=== PATIENT | male | born 1945 | race Caucasian/White ===

== ENCOUNTER 2016-03-18 00:22 | Emergency (ER) | payer MEDICAID, MEDICARE ==
[~2016-03-18] VITALS: Ht 172.7 cm; Wt 97.5 kg
[2016-03-18 00:59] LABS: Basophils # (auto) 0.1 uL; Basophils % (auto) 1.3 % (0.0-2.0); Eosinophils # (auto) 0.1 uL; Eosinophils % (auto) 1.8 % (0.0-7.0); Hematocrit 46.5 % (41.0-53.0); Hemoglobin 14.8 g/dL (13.5-17.5); Lymphocytes # (auto) 1.7 uL; Lymphocytes % (auto) 22.3 % (10.0-50.0); Mean Corpuscular Hgb Conc. 31.8 g/dL (32.0-36.0); Mean Corpuscular Volume 91.2 fL (80.0-100.0); Mean Platelet Volume 10.6 fL (7.4-10.4); Monocytes # (auto) 0.7 uL; Monocytes % (auto) 8.8 % (0.0-12.0); Neutrophils # (auto) 4.9 uL; Neutrophils % (auto) 65.8 % (37.0-80.0); Platelet Count (auto) 151 10^3/uL (140-450); Red Cell Distribution Width 13.1 % (11.6-16.0); White Blood Cell 7.5 10^3/uL (4.4-10.8)
[2016-03-18 01:10] LABS: Partial Thromboplastin Time 26.1 sec (22.64-33.71); Prothrombin Time 10.3 sec (9.37-12.3)
[2016-03-18 01:13] LABS: Temperature: 22.7 C (20.0-25.0)
[2016-03-18 01:17] LABS: Albumin 3.6 g/dL (3.4-5.0); BUN/Creatinine Ratio 12.5; Calcium 8.3 mg/dL (8.5-10.1); Potassium 3.6 mmol/L (3.5-5.1)
[2016-03-18 01:19] LABS: Bilirubin, Total 0.3 mg/dL (0.2-1.0); Total Protein 7.5 g/dL (6.4-8.2)
== END 2016-03-18 03:30 | disposition left against medical advice (07) ==
LOC: ER 00:26
DX: R06.02 Shortness of breath (principal); Z53.21 Procedure and treatment not carried out due to patient leaving prior to being seen by health care provider
CPT/HCPCS: 36415; 71010; 80053; 83880; 84484; 85025; 85610; 85730; 93005

== ENCOUNTER 2016-10-14 10:48 | Emergency (ER) | payer MEDICARE ==
[~2016-10-14] VITALS: Ht 177.8 cm; Wt 108.9 kg
[2016-10-14 11:35] LABS: Urine RBC None Seen /hpf (0 - 3)
[2016-10-14 11:43] LABS: Urine Bilirubin Negative (Negative); Urine Blood Negative /uL (Negative); Urine Color Yellow (Yellow); Urine Glucose Normal (Normal); Urine Ketone Negative (Negative); Urine Nitrite Negative (Negative); Urine Squamous Epithelial Cell FEW /hpf (<5); Urine Urobilinogen Normal (Negative); Urine pH 5.5 (5.0-8.0)
[2016-10-14 11:47] LABS: Basophils # (auto) 0 uL; Basophils % (auto) 0.4 % (0.0-2.0); CONDITION Y; Eosinophils # (auto) 0.1 uL; Eosinophils % (auto) 1.1 % (0.0-7.0); Hematocrit 47.1 % (41.0-53.0); Lymphocytes # (auto) 1.5 uL; Lymphocytes % (auto) 18.3 % (10.0-50.0); Mean Corpuscular Hemoglobin 30.2 pg (28.0-32.0); Mean Corpuscular Volume 88.9 fL (80.0-100.0); Mean Platelet Volume 10.9 fL (7.4-10.4); Monocytes # (auto) 0.6 uL; Monocytes % (auto) 7.8 % (0.0-12.0); Neutrophils # (auto) 5.8 uL; Neutrophils % (auto) 72.4 % (37.0-80.0); Platelet Count (auto) 190 10^3/uL (140-450); Red Cell Distribution Width 15.5 % (11.6-16.0); SUSPECT SEE PRINTOUT; White Blood Cell 8.1 10^3/uL (4.4-10.8)
[2016-10-14 12:02] LABS: Acetaminophen < 2.0 ug/mL (10-30); Salicylate 3.1 mg/dL (2.8-20.0)
[2016-10-14 12:08] LABS: Albumin 3.6 g/dL (3.4-5.0); Alkaline Phosphatase 74 U/L (45-117); Anion Gap 8 (5-15); Aspartate Aminotransferase 15 U/L (15-37); Bilirubin, Total 0.4 mg/dL (0.2-1.0); Blood Urea Nitrogen 16 mg/dL (7-18); Calcium 8.9 mg/dL (8.5-10.1); Carbon Dioxide 24 mmol/L (21-32); Chloride 105 mmol/L (98-107); GFR African American 81 mL/min; GFR Non-African American 67 mL/min; Glucose 116 mg/dL (74-106); Potassium 3.7 mmol/L (3.5-5.1); Sodium 137 mmol/L (136-145); Total Protein 7.3 g/dL (6.4-8.2)
[2016-10-15] MEDS ORDERED: TEMAZEPAM 15 MG CAP PO ONE (00:15)
[2016-10-15] MEDS ORDERED: ONDANSETRON ODT 4 MG TAB PO ONE (00:15)
[2016-10-15] MEDS ORDERED: DEXTROSE (50%) 50ML SYRG IV PRN (08:30)
[2016-10-15] MEDS ORDERED: metFORMIN HYDROCHLORIDE 500 MG TAB PO SCH (10:00)
[2016-10-15 10:06] VITALS: BP 142/81
[2016-10-15] MEDS ORDERED: InsuLIN REG 1unit/0.01ml Soln (100units/ml) SC SCH ×2 (11:30→22:00)
[2016-10-15] MEDS ORDERED: ACCU-CHEK COMFORT CURVE STRIP VI SCH (11:30)
== END 2016-10-15 10:16 ==
LOC: EDBD 10:48 → ER 10:48
DX: R45.851 Suicidal ideations (principal); E11.9 Type 2 diabetes mellitus without complications; F17.210 Nicotine dependence, cigarettes, uncomplicated; F41.9 Anxiety disorder, unspecified; F32.9 Major depressive disorder, single episode, unspecified; Z95.2 Presence of prosthetic heart valve
CPT/HCPCS: 36415; 71010; 80053; 80307; 80320; 80329; 81001; 84484; 85025; 93005; 99285; Q0162

== ENCOUNTER 2017-03-22 00:23 | Emergency (ER) | payer MEDICARE, OTHER ==
[~2017-03-22] VITALS: Ht 177.8 cm; Wt 99.8 kg
[2017-03-22 00:30] VITALS: BP 175/89
== END 2017-03-22 06:45 | disposition left against medical advice (07) ==
LOC: EDBD 00:23 → ER 00:28
DX: R06.02 Shortness of breath (principal); Z53.21 Procedure and treatment not carried out due to patient leaving prior to being seen by health care provider
CPT/HCPCS: 93005

== ENCOUNTER 2020-09-25 14:17 | Emergency (ER) | payer MEDICARE, OTHER ==
[~2020-09-25] VITALS: Ht 172.7 cm; Wt 53.5 kg
[2020-09-25 14:17] VITALS: BP 148/72
== END 2020-09-25 15:33 | disposition left against medical advice (07) ==
LOC: EDBD 14:17 → ER 14:17
DX: T82.119A Breakdown (mechanical) of unspecified cardiac electronic device, initial encounter (principal); R07.89 Other chest pain; F17.210 Nicotine dependence, cigarettes, uncomplicated; E11.9 Type 2 diabetes mellitus without complications
CPT/HCPCS: 93005

== ENCOUNTER 2021-06-06 06:21 | Emergency (ER) | payer OTHER ==
[~2021-06-06] VITALS: Ht 170.2 cm; Wt 113.4 kg
[2021-06-06 07:38] LABS: Basophils # (auto) 0 10 ^3/uL (0-0.2); Basophils % (auto) 0.5 % (0.0-2.0); Eosinophils # (auto) 0.1 10 ^3/uL (0-0.8); Hematocrit 44.7 % (41.0-53.0); Hemoglobin 15.4 g/dL (13.5-17.5); Lymphocytes # (auto) 0.8 10 ^3/uL (0.4-5.4); Lymphocytes % (auto) 11.7 % (10.0-50.0); Mean Corpuscular Hemoglobin 31.1 pg (28.0-32.0); Mean Corpuscular Hgb Conc. 34.4 g/dL (32.0-36.0); Mean Corpuscular Volume 90.5 fL (80.0-100.0); Monocytes # (auto) 0.5 10 ^3/uL (0-1.3); Monocytes % (auto) 8.2 % (0.0-12.0); Neutrophils # (auto) 5.1 10 ^3/uL (1.6-8.6); Neutrophils % (auto) 78.6 % (37.0-80.0); Nucleated Red Blood Cells % 0.1 %; Red Blood Cells 4.94 10^6/uL (4.5-5.90); Red Cell Distribution Width 14.2 % (11.8-14.3); White Blood Cell 6.6 10^3/uL (4.4-10.8)
[2021-06-06 07:59] LABS: Albumin 3.4 g/dL (3.4-5.0); Calcium 8.9 mg/dL (8.5-10.1); Potassium 3.8 mmol/L (3.5-5.1)
[2021-06-06] MEDS ORDERED: SODIUM CHLORIDE 0.9% 1,000 ML IV ONE (08:00)
[2021-06-06 08:05] LABS: BUN/Creatinine Ratio 13.9; Bilirubin, Total 0.6 mg/dL (0.2-1.0); Total Protein 7.9 g/dL (6.4-8.2)
[2021-06-06 09:51] LABS: Urine Bacteria NONE SEEN /hpf (None Seen); Urine Blood Negative /uL (Negative); Urine Specific Gravity 1.009 (1.001-1.035); Urine WBC <1 /hpf (0 - 3)
[2021-06-06] MEDS ORDERED: FUROSEMIDE 40 MG/4 ML VIAL IV ONE (11:30)
[2021-06-06] MEDS ORDERED: SPIRONOLACTONE 25 MG TAB PO ONE (11:30)
[2021-06-06 12:34] VITALS: BP 131/63
== END 2021-06-06 14:21 | disposition home or self-care (01) ==
LOC: ER 06:21 → EDBD 06:21 → ER 14:21
DX: R07.89 Other chest pain (principal); I10 Essential (primary) hypertension; Z95.0 Presence of cardiac pacemaker; Z20.822 Contact with and (suspected) exposure to COVID-19
CPT/HCPCS: 36415; 71046; 80053; 81001; 83735; 83880; 84443; 84484; 85025; 87426; 93005; 96372; 96374; 99284; J1940; J7030

== ENCOUNTER 2022-06-13 12:58 | Emergency (ER) | payer OTHER ==
[~2022-06-13] VITALS: Ht 177.8 cm; Wt 90.9 kg
[2022-06-13] MEDS ORDERED: ACETAMINOPHEN 500 MG TAB PO ONE (14:15)
[2022-06-13 14:45] LABS: Basophils # (auto) 0 10 ^3/uL (0-0.2); Basophils % (auto) 0.5 % (0.0-2.0); Eosinophils # (auto) 0 10 ^3/uL (0-0.8); Eosinophils % (auto) 0.4 % (0.0-7.0); Hematocrit 37.7 % (41.0-53.0); Hemoglobin 12.7 g/dL (13.5-17.5); Lymphocytes # (auto) 1.2 10 ^3/uL (0.4-5.4); Lymphocytes % (auto) 13.2 % (10.0-50.0); Mean Corpuscular Hemoglobin 30.3 pg (28.0-32.0); Mean Corpuscular Hgb Conc. 33.7 g/dL (32.0-36.0); Mean Corpuscular Volume 89.8 fL (80.0-100.0); Monocytes # (auto) 0.7 10 ^3/uL (0-1.3); Monocytes % (auto) 8.2 % (0.0-12.0); Neutrophils % (auto) 77.7 % (37.0-80.0); Nucleated Red Blood Cells % 0.1 %; Red Blood Cells 4.19 10^6/uL (4.5-5.90); Red Cell Distribution Width 14.9 % (11.8-14.3)
[2022-06-13 15:02] LABS: Albumin 2.7 g/dL (3.4-5.0); Anion Gap 3 (5-15); Blood Urea Nitrogen 30 mg/dL (7-18); Calcium 8.7 mg/dL (8.5-10.1); Carbon Dioxide 26 mmol/L (21-32); Chloride 108 mmol/L (98-107); Glucose 103 mg/dL (74-106); Magnesium 2.4 mg/dL (1.6-2.6); Potassium 4.1 mmol/L (3.5-5.1); Sodium 137 mmol/L (136-145)
[2022-06-13 15:07] LABS: Alanine Aminotransferase 25 U/L (16-61); Alkaline Phosphatase 78 U/L (45-117); Aspartate Aminotransferase 25 U/L (15-37); BUN/Creatinine Ratio 22.1 (10.0-20.0); Bilirubin, Total 0.3 mg/dL (0.2-1.0); Blood Alcohol < 3.0 mg/dL (0-5); GFR African American 65 mL/min; GFR Non-African American 54 mL/min; Total Protein 7.5 g/dL (6.4-8.2)
[2022-06-13] MEDS ORDERED: SOD CHL 0.45% 1,000 ML IV ONE (21:15)
[2022-06-13] MEDS ORDERED: cefTRIAXone 1GM/50ML D5W 50 ML IV ONE (21:15)
[2022-06-14] MEDS ORDERED: ALBUMIN 25% 100 ML IV ONE (01:30)
[2022-06-14] MEDS ORDERED: MORPHINE SULFATE INJ 2 MG/ml SYRG IV ONE (05:15)
[2022-06-14] MEDS ORDERED: ONDANSETRON HCL 4 MG/2 ML VIAL IV ONE (05:15)
[2022-06-14 10:11] VITALS: BP 120/60
== END 2022-06-14 12:33 | disposition home or self-care (01) ==
LOC: EDBD 12:58 → ER 12:58
DX: R42 Dizziness and giddiness (principal); J44.9 Chronic obstructive pulmonary disease, unspecified; E11.9 Type 2 diabetes mellitus without complications; F17.210 Nicotine dependence, cigarettes, uncomplicated; R41.82 Altered mental status, unspecified; Z20.822 Contact with and (suspected) exposure to COVID-19
CPT/HCPCS: 36415; 70450; 71250; 72125; 74176; 80053; 80320; 83735; 84484; 85025; 87426; 93005; 96365; 96375; 99285; J0696; J2270; J2405; J7030; P9047

== ENCOUNTER 2022-07-06 11:14 | Emergency (ER) | payer OTHER ==
[2022-07-06] MEDS ORDERED: IPRATROPIUM BROM 0.5 MG/2.5ML INH SOL NEB ONE (11:30)
[2022-07-06] MEDS ORDERED: ALBUTEROL SULF 2.5 MG/0.5ML(0.5%) NEB SOLN NEB ONE (11:30)
[2022-07-06] MEDS ORDERED: methylPREDNISolone SOD SUCC 125 MG/2 ML VL IV ONE (11:30)
[2022-07-06 11:44] LABS: Basophils # (auto) 0 10 ^3/uL (0-0.2); Basophils % (auto) 0.6 % (0.0-2.0); Eosinophils # (auto) 0.1 10 ^3/uL (0-0.8); Eosinophils % (auto) 0.8 % (0.0-7.0); Hemoglobin 13.6 g/dL (13.5-17.5); Lymphocytes # (auto) 1.2 10 ^3/uL (0.4-5.4); Lymphocytes % (auto) 13.6 % (10.0-50.0); Mean Corpuscular Hgb Conc. 33.2 g/dL (32.0-36.0); Mean Corpuscular Volume 93.6 fL (80.0-100.0); Monocytes # (auto) 0.8 10 ^3/uL (0-1.3); Monocytes % (auto) 9.2 % (0.0-12.0); Neutrophils # (auto) 6.6 10 ^3/uL (1.6-8.6); Neutrophils % (auto) 75.8 % (37.0-80.0); Red Blood Cells 4.38 10^6/uL (4.5-5.90); Red Cell Distribution Width 16.6 % (11.8-14.3); White Blood Cell 8.7 10^3/uL (4.4-10.8)
[2022-07-06 12:07] LABS: Albumin 3.2 g/dL (3.4-5.0); Calcium 8.7 mg/dL (8.5-10.1); Potassium 4.3 mmol/L (3.5-5.1)
[2022-07-06 12:11] LABS: BUN/Creatinine Ratio 22.9 (10.0-20.0); Bilirubin, Total 0.5 mg/dL (0.2-1.0); CRP High Sensitivity 0.48 mg/dL (< 0.3); Total Protein 7.3 g/dL (6.4-8.2)
[2022-07-06] MEDS ORDERED: cefTRIAXone 1GM/50ML D5W 50 ML IV ONE (13:30)
[2022-07-06] MEDS ORDERED: FUROSEMIDE 40 MG/4 ML VIAL IV ONE (13:30)
[2022-07-06 14:12] LABS: Urine Bacteria NONE SEEN /hpf (None Seen); Urine Blood Negative /uL (Negative); Urine WBC <1 /hpf (0 - 3)
[2022-07-06] MEDS ORDERED: IOHEXOL 350 MG/ML 100ML IJ ONE (15:00)
[2022-07-06 19:23] VITALS: BP 142/71
== END 2022-07-06 19:25 | disposition home or self-care (01) ==
LOC: EDBD 11:14 → EDUNIT# 11:14 → ER 11:14
DX: R09.89 Other specified symptoms and signs involving the circulatory and respiratory systems (principal); R06.00 Dyspnea, unspecified; E11.9 Type 2 diabetes mellitus without complications; F17.210 Nicotine dependence, cigarettes, uncomplicated; Z79.899 Other long term (current) drug therapy
CPT/HCPCS: 36415; 36600; 71045; 71250; 80053; 81001; 82805; 83605; 83880; 84484; 85025; 85379; 86141; 93005; 94640; 96365; 96375; 99285; J0696; J1940; J2930; J7644; Q9967

== ENCOUNTER 2022-08-28 13:37 | Inpatient (IN) | payer OTHER ==
[~2022-08-28] VITALS: Ht 180.3 cm; Wt 82.1 kg
[2022-08-28] MEDS ORDERED: AZITHROMYCIN 500MG/ 250ML 250 ML IV ONE (13:45)
[2022-08-28] MEDS ORDERED: cefTRIAXone 1GM/50ML D5W 50 ML IV ONE (13:45)
[2022-08-28 14:32] VITALS: PULSE 68; RESP 19; O2SAT 99
[2022-08-28 16:29] LABS: Basophils # (auto) 0 10 ^3/uL (0-0.2); Basophils % (auto) 0.2 % (0.0-2.0); Eosinophils # (auto) 0 10 ^3/uL (0-0.8); Hematocrit 42.5 % (41.0-53.0); Hemoglobin 13.9 g/dL (13.5-17.5); Lymphocytes # (auto) 0.7 10 ^3/uL (0.4-5.4); Lymphocytes % (auto) 3.9 % (10.0-50.0); Mean Corpuscular Hemoglobin 31.5 pg (28.0-32.0); Mean Corpuscular Hgb Conc. 32.6 g/dL (32.0-36.0); Mean Corpuscular Volume 96.7 fL (80.0-100.0); Monocytes # (auto) 1.1 10 ^3/uL (0-1.3); Monocytes % (auto) 6.6 % (0.0-12.0); Neutrophils # (auto) 15.4 10 ^3/uL (1.6-8.6); Neutrophils % (auto) 89.3 % (37.0-80.0); Red Cell Distribution Width 15.4 % (11.8-14.3); White Blood Cell 17.2 10^3/uL (4.4-10.8)
[2022-08-28] MEDS ORDERED: SOD CHL 0.45% 1,000 ML IV ONE (16:30)
[2022-08-28 16:42] LABS: Albumin 3.7 g/dL (3.4-5.0); Calcium 9.5 mg/dL (8.5-10.1); Potassium 4.6 mmol/L (3.5-5.1)
[2022-08-28 16:46] LABS: BUN/Creatinine Ratio 22.4 (10.0-20.0); Total Protein 7.6 g/dL (6.4-8.2)
[2022-08-28 17:05] LABS: INR 1.01 (0.9-1.15); Partial Thromboplastin Time 26.8 sec (24.6-33.4); Prothrombin Time 10.7 sec (9.4-11.7)
[2022-08-28 18:11] LABS: Urine Bacteria FEW /hpf (None Seen); Urine Blood TRACE /uL (Negative); Urine Clarity HAZY (Clear); Urine Color Yellow (Yellow); Urine Hyaline Cast FEW /lpf (0 - 2); Urine Mucus FEW (None Seen); Urine Protein, UAD 1+ (Negative); Urine Specific Gravity 1.027 (1.001-1.035); Urine WBC 4 /hpf (0 - 3); Urine pH 5.5 (5.0-8.0)
[2022-08-28] MEDS ORDERED: ONDANSETRON HCL 4 MG/2 ML VIAL IV PRN (18:30)
[2022-08-28] MEDS ORDERED: HYDROcodone-ACET 5/325MG TAB PO PRN (18:30)
[2022-08-28] MEDS ORDERED: DOCUSATE SOD 100 MG CAP PO PRN (18:30)
[2022-08-28] MEDS ORDERED: NITROGLYCERIN 0.4 MG SL TAB SL PRN (18:30)
[2022-08-28] MEDS ORDERED: MORPHINE SULFATE INJ 2 MG/ml SYRG IV PRN (18:30)
[2022-08-28 19:40] VITALS: PULSE 66; RESP 34; O2SAT 98
[2022-08-28] MEDS: SODIUM CHLOR 0.9% PF (SALINE LOCK) 10ML VIAL/SYR IV SCH (22:21)
[2022-08-29] MEDS: ACETAMINOPHEN 325 MG TAB PO PRN (01:39)
[2022-08-29 03:56] LABS: Creatinine, Urine 139 mg/dL (30.0-125.0); Sodium Urine 19 mmol/L (40-220)
[2022-08-29] MEDS: SODIUM CHLOR 0.9% PF (SALINE LOCK) 10ML VIAL/SYR IV SCH ×3 (06:05→22:00)
[2022-08-29 07:30] VITALS: PULSE 70; RESP 25; O2SAT 97
[2022-08-29] MEDS ORDERED: cefTRIAXone 1GM/50ML D5W 50 ML IV SCH (10:00)
[2022-08-29] MEDS: AZITHROMYCIN 500MG/ 250ML 250 ML IV SCH (10:20)
[2022-08-29] MEDS ORDERED: SODIUM CHLORIDE 0.9% 1,000 ML IV ONE ×2 (13:00→18:00)
[2022-08-29 13:55] LABS: Calcium 9.2 mg/dL (8.5-10.1); Potassium 3.8 mmol/L (3.5-5.1)
[2022-08-29] MEDS ORDERED: VANCOMYCIN PER PHARMACY 0 MG IV SCH (18:00)
[2022-08-29] MEDS ORDERED: VANCOMYCIN 1GM/250ML 250 ML IV ONE (18:30)
[2022-08-29 20:00] VITALS: PULSE 62; RESP 30; O2SAT 97
[2022-08-29] MEDS: CEFEPIME 2GM/50ML NS 50 ML IV SCH (21:00)
[2022-08-29 22:00] VITALS: BP 100/58; PULSE 62; RESP 23; TEMP 99.6; O2SAT 96
[2022-08-30] VITALS (9 sets, daily range): BP systolic 102–141; BP diastolic 57–74; PULSE 62–92; RESP 18–24; TEMP 97.1–101.4; O2SAT 91–96
[2022-08-30] MEDS ORDERED: ACET-1881 PO (00:41)
[2022-08-30] MEDS ORDERED: ZOLP10TA PO (00:41)
[2022-08-30] MEDS ORDERED: LISI20TA56 PO (00:41)
[2022-08-30] MEDS ORDERED: DOCU-94 PO (00:41)
[2022-08-30] MEDS ORDERED: LORA-1121 PO (00:41)
[2022-08-30] MEDS ORDERED: MET25T PO (00:41)
[2022-08-30] MEDS ORDERED: HAL5T PO (00:41)
[2022-08-30] MEDS ORDERED: QUET50TA PO (00:41)
[2022-08-30] MEDS: SODIUM CHLOR 0.9% PF (SALINE LOCK) 10ML VIAL/SYR IV SCH ×3 (06:19→22:26)
[2022-08-30 07:39] LABS: Potassium 3.5 mmol/L (3.5-5.1)
[2022-08-30 07:50] LABS: BUN/Creatinine Ratio 30.7 (10.0-20.0); Calcium 9.5 mg/dL (8.5-10.1)
[2022-08-30] MEDS ORDERED: D5W 5% 1,000 ML IV SCH ×2 (09:45→15:45)
[2022-08-30] MEDS: CEFEPIME 2GM/50ML NS 50 ML IV SCH (09:59)
[2022-08-30] MEDS: AZITHROMYCIN 500MG/ 250ML 250 ML IV SCH (09:59)
[2022-08-30] MEDS ORDERED: VANCOMYCIN 1GM/250ML 250 ML IV ONE (14:00)
[2022-08-30 14:35] LABS: Cholesterol 103 mg/dL (< 200)
[2022-08-30 14:38] LABS: HDL Cholesterol 29 mg/dL (40-59); LDL Cholesterol 58 mg/dL (< 100); Triglycerides 76 mg/dL (< 150)
[2022-08-30] MEDS ORDERED: METOPROLOL TARTRATE 50 MG TAB PO ONE (14:45)
[2022-08-30 16:03] LABS: Basophils # (auto) 0 10 ^3/uL (0-0.2); Eosinophils # (auto) 0 10 ^3/uL (0-0.8); Monocytes # (auto) 0.8 10 ^3/uL (0-1.3); Nucleated Red Blood Cells % 0.1 %
[2022-08-30 16:06] LABS: Basophils % (auto) 0.1 % (0.0-2.0); Hematocrit 38.4 % (41.0-53.0); Hemoglobin 11.4 g/dL (13.5-17.5); Lymphocytes # (auto) 0.4 10 ^3/uL (0.4-5.4); Lymphocytes % (auto) 2.7 % (10.0-50.0); Mean Corpuscular Hemoglobin 31.1 pg (28.0-32.0); Mean Corpuscular Hgb Conc. 29.6 g/dL (32.0-36.0); Mean Corpuscular Volume 104.8 fL (80.0-100.0); Monocytes % (auto) 5.6 % (0.0-12.0); Neutrophils # (auto) 12.4 10 ^3/uL (1.6-8.6); Neutrophils % (auto) 91.6 % (37.0-80.0); Red Blood Cells 3.66 10^6/uL (4.5-5.90); Red Cell Distribution Width 16.7 % (11.8-14.3); White Blood Cell 13.6 10^3/uL (4.4-10.8)
[2022-08-30] MEDS: POTASSIUM CHL 20MEQ/100ML 100 ML IV SCH ×2 (16:30→22:22)
[2022-08-30] MEDS ORDERED: CLINIMIX PER PHARMACY 0 ML IV SCH (19:00)
[2022-08-30] MEDS ORDERED: ACETAMINOPHEN 650 MG RECT SUPP PR PRN (22:00)
[2022-08-30] MEDS: ATORVASTATIN 20 MG TAB PO SCH (22:00)
[2022-08-30] MEDS: METOPROLOL TARTRATE 25 MG TAB PO SCH (22:00)
[2022-08-30] MEDS: AMINO ACID INFUSION IN D10W 1,000 ML IV NR (22:39)
[2022-08-31] VITALS (50 sets, daily range): BP systolic 109–171; BP diastolic 39–73; PULSE 40–92; RESP 12–32; TEMP 98.6–100.6; O2SAT 91–99
[2022-08-31] MEDS ORDERED: DEXTROSE (50%) 50ML SYRG IV SCH
[2022-08-31 00:54] LABS: Base Excess -4.2 mmol/L (-2.0-2.0)
[2022-08-31] MEDS: CEFEPIME 2GM/50ML NS 50 ML IV SCH ×3 (01:24→22:02)
[2022-08-31] MEDS: ACCU-CHEK COMFORT CURVE STRIP VI SCH ×4 (01:25→17:48)
[2022-08-31] MEDS: InsuLIN REG 1unit/0.01ml Soln (100units/ml) SC SCH ×4 (01:27→17:53)
[2022-08-31] MEDS: SODIUM CHLOR 0.9% PF (SALINE LOCK) 10ML VIAL/SYR IV SCH ×3 (06:00→21:59)
[2022-08-31 07:19] LABS: Potassium 4.2 mmol/L (3.5-5.1)
[2022-08-31 07:31] LABS: Albumin 2.6 g/dL (3.4-5.0); BUN/Creatinine Ratio 35.5 (10.0-20.0); Bilirubin, Total 0.6 mg/dL (0.2-1.0); Calcium 9.2 mg/dL (8.5-10.1); Magnesium 3.4 mg/dL (1.6-2.6); Phosphorus 3.1 mg/dL (2.5-4.90)
[2022-08-31 09:24] LABS: Base Excess -3.5 mmol/L (-2.0-2.0)
[2022-08-31 09:36] LABS: Basophils # (auto) 0.1 10 ^3/uL (0-0.2); Basophils % (auto) 0.3 % (0.0-2.0); Eosinophils # (auto) 0 10 ^3/uL (0-0.8); Eosinophils % (auto) 0.1 % (0.0-7.0); Hematocrit 44.1 % (41.0-53.0); Hemoglobin 13.7 g/dL (13.5-17.5); Lymphocytes # (auto) 0.4 10 ^3/uL (0.4-5.4); Mean Corpuscular Hemoglobin 30.9 pg (28.0-32.0); Mean Corpuscular Volume 99.6 fL (80.0-100.0); Monocytes # (auto) 1.3 10 ^3/uL (0-1.3); Monocytes % (auto) 6.6 % (0.0-12.0); Neutrophils # (auto) 18.1 10 ^3/uL (1.6-8.6); Red Blood Cells 4.42 10^6/uL (4.5-5.90); Red Cell Distribution Width 16.4 % (11.8-14.3); White Blood Cell 19.8 10^3/uL (4.4-10.8)
[2022-08-31] MEDS: ASPirin 81 mg TAB PO SCH (10:00)
[2022-08-31] MEDS: METOPROLOL TARTRATE 25 MG TAB PO SCH ×2 (10:00→22:00)
[2022-08-31] MEDS: AZITHROMYCIN 500MG/ 250ML 250 ML IV SCH (10:56)
[2022-08-31 14:15] LABS: INR 1.08 (0.9-1.15); Partial Thromboplastin Time 25.4 SEC (24.5-34.5); Prothrombin Time 11.3 sec (9.3-11.8)
[2022-08-31] MEDS ORDERED: FUROSEMIDE 100 MG/10ML VIAL IV ONE (16:00)
[2022-08-31] MEDS: LINEZOLID 600MG/300ML 300 ML IV SCH (17:47)
[2022-08-31] MEDS ORDERED: VANCOMYCIN 500 MG in D5W 5% 100 ML IV ONE (18:00)
[2022-08-31] MEDS: AMINO ACID INFUSION IN D10W 1,000 ML IV NR (21:56)
[2022-08-31] MEDS: LACTULOSE 20Gm/30ML SOLN PO SCH (22:00)
[2022-08-31] MEDS: ATORVASTATIN 20 MG TAB PO SCH (22:00)
[2022-09-01] VITALS (48 sets, daily range): BP systolic 104–148; BP diastolic 44–61; PULSE 60–87; RESP 15–33; TEMP 99–100.2; O2SAT 93–100
[2022-09-01] MEDS: ACCU-CHEK COMFORT CURVE STRIP VI SCH ×4 (00:24→18:01)
[2022-09-01] MEDS: InsuLIN REG 1unit/0.01ml Soln (100units/ml) SC SCH ×4 (00:27→18:07)
[2022-09-01 01:16] LABS: Urine Bacteria FEW /hpf (None Seen); Urine Blood Negative /uL (Negative); Urine Clarity Clear (Clear); Urine Color Colorless (Yellow); Urine Hyaline Cast MOD /lpf (0 - 2); Urine Mucus FEW (None Seen); Urine Protein, UAD Negative (Negative); Urine Specific Gravity 1.011 (1.001-1.035); Urine Urobilinogen Normal (Negative); Urine WBC 3 /hpf (0 - 3)
[2022-09-01 04:11] LABS: BUN/Creatinine Ratio 43.5 (10.0-20.0); Calcium 9.2 mg/dL (8.5-10.1); Potassium 3.8 mmol/L (3.5-5.1)
[2022-09-01 04:12] LABS: Albumin 2.5 g/dL (3.4-5.0); BUN/Creatinine Ratio 42.2 (10.0-20.0); Calcium 9.2 mg/dL (8.5-10.1); Magnesium 3.1 mg/dL (1.6-2.6); Phosphorus 2.2 mg/dL (2.5-4.90); Potassium 3.7 mmol/L (3.5-5.1)
[2022-09-01] MEDS ORDERED: FUROSEMIDE 40 MG/4 ML VIAL IV ONE (04:15)
[2022-09-01 04:21] LABS: Basophils # (auto) 0 10 ^3/uL (0-0.2); Basophils % (auto) 0.1 % (0.0-2.0); Eosinophils # (auto) 0 10 ^3/uL (0-0.8); Eosinophils % (auto) 0.2 % (0.0-7.0); Hematocrit 41.3 % (41.0-53.0); Hemoglobin 13.4 g/dL (13.5-17.5); Lymphocytes # (auto) 0.3 10 ^3/uL (0.4-5.4); Lymphocytes % (auto) 1.2 % (10.0-50.0); Mean Corpuscular Hemoglobin 31.5 pg (28.0-32.0); Mean Corpuscular Hgb Conc. 32.5 g/dL (32.0-36.0); Mean Corpuscular Volume 96.8 fL (80.0-100.0); Monocytes # (auto) 1.5 10 ^3/uL (0-1.3); Neutrophils # (auto) 23.8 10 ^3/uL (1.6-8.6); Neutrophils % (auto) 92.5 % (37.0-80.0); Red Blood Cells 4.27 10^6/uL (4.5-5.90); Red Cell Distribution Width 15.8 % (11.8-14.3); White Blood Cell 25.7 10^3/uL (4.4-10.8)
[2022-09-01] MEDS: LINEZOLID 600MG/300ML 300 ML IV SCH ×2 (05:53→18:01)
[2022-09-01] MEDS: SODIUM CHLOR 0.9% PF (SALINE LOCK) 10ML VIAL/SYR IV SCH ×3 (06:07→21:14)
[2022-09-01] MEDS: D5W 5% 1,000 ML IV SCH ×2 (09:40→18:01)
[2022-09-01] MEDS: FUROSEMIDE 100 MG/10ML VIAL IV SCH (09:47)
[2022-09-01] MEDS: ASPirin 81 mg TAB PO SCH (09:59)
[2022-09-01] MEDS ORDERED: FUROSEMIDE 20 MG/2 ML VIAL IV SCH (10:00)
[2022-09-01] MEDS: METOPROLOL TARTRATE 25 MG TAB PO SCH ×2 (10:00→22:00)
[2022-09-01] MEDS: LACTULOSE 20Gm/30ML SOLN PO SCH ×2 (10:00→22:00)
[2022-09-01] MEDS: CEFEPIME 2GM/50ML NS 50 ML IV SCH ×2 (10:20→21:13)
[2022-09-01] MEDS: AZITHROMYCIN 500MG/ 250ML 250 ML IV SCH (11:44)
[2022-09-01] MEDS ORDERED: POTASSIUM PHOSPHATE 22 MEQ in SODIUM CHL 0.9% 100 ML IV ONE (12:15)
[2022-09-01] MEDS: ATORVASTATIN 20 MG TAB PO SCH (22:00)
[2022-09-01] MEDS ORDERED: AMINO ACID INFUSION IN D10W 1,000 ML IV NR (22:00)
[2022-09-02] VITALS (87 sets, daily range): BP systolic 75–145; BP diastolic 28–65; PULSE 54–95; RESP 14–26; TEMP 98.6–100.4; O2SAT 88–100
[2022-09-02] MEDS: ACCU-CHEK COMFORT CURVE STRIP VI SCH ×4 (00:17→17:58)
[2022-09-02] MEDS: InsuLIN REG 1unit/0.01ml Soln (100units/ml) SC SCH ×4 (00:18→18:00)
[2022-09-02 04:01] LABS: Potassium 3.9 mmol/L (3.5-5.1)
[2022-09-02 04:06] LABS: Albumin 2.5 g/dL (3.4-5.0); BUN/Creatinine Ratio 46.9 (10.0-20.0); Bilirubin, Total 0.7 mg/dL (0.2-1.0); Calcium 8.5 mg/dL (8.5-10.1); Magnesium 2.7 mg/dL (1.6-2.6); Phosphorus 2.8 mg/dL (2.5-4.90); Total Protein 6.8 g/dL (6.4-8.2)
[2022-09-02 04:17] LABS: Base Excess -10.5 mmol/L (-2.0-2.0)
[2022-09-02] MEDS ORDERED: ETOMIDATE (2MG/ML) 20ML VIAL IV ONE (04:40)
[2022-09-02] MEDS ORDERED: SUCCINYLCHOLINE CHLORIDE 20 MG/ML 10ML VIAL IV ONE (04:40)
[2022-09-02] MEDS ORDERED: MIDAZOLAM DRIP 50 mg/50mL 50 ML IV ONE (04:44)
[2022-09-02] MEDS: MIDAZOLAM DRIP 50 mg/50mL 50 ML IV SCH (05:00)
[2022-09-02] MEDS: SODIUM CHLOR 0.9% PF (SALINE LOCK) 10ML VIAL/SYR IV SCH ×4 (06:00→21:41)
[2022-09-02] MEDS: LINEZOLID 600MG/300ML 300 ML IV SCH ×2 (07:00→17:58)
[2022-09-02] MEDS: CEFEPIME 2GM/50ML NS 50 ML IV SCH ×2 (09:00→21:40)
[2022-09-02 09:24] LABS: Folate (Folic Acid) 5.75 ng/mL (5.38-24)
[2022-09-02 09:25] LABS: Base Excess -9.3 mmol/L (-2.0-2.0)
[2022-09-02] MEDS: D5W 5% 1,000 ML IV SCH ×3 (09:30→17:30)
[2022-09-02] MEDS: FUROSEMIDE 100 MG/10ML VIAL IV SCH (10:30)
[2022-09-02] MEDS: PANTOPRAZOLE 40 MG/10 ML VIAL INJ IV SCH (10:33)
[2022-09-02] MEDS: LACTULOSE 20Gm/30ML SOLN PO SCH ×2 (10:34→22:00)
[2022-09-02] MEDS: ASPirin 81 mg TAB PO SCH (10:34)
[2022-09-02] MEDS: ENOXAPARIN SOD 40 MG/0.4 ML SYRINGE SC SCH (10:34)
[2022-09-02] MEDS: METOPROLOL TARTRATE 25 MG TAB PO SCH ×2 (10:34→21:42)
[2022-09-02] MEDS ORDERED: NOREPINEPHRINE 8 MG/250ML KIT 250 ML IV ONE (14:15)
[2022-09-02] MEDS ORDERED: LIDOCAINE 1% (LOCAL ANESTH.) PF 5ml SDV ID ONE (14:30)
[2022-09-02] MEDS: NOREPINEPHRINE 8 MG/250ML KIT 250 ML IV SCH (14:30)
[2022-09-02] MEDS: AZITHROMYCIN 500MG/ 250ML 250 ML IV SCH (14:37)
[2022-09-02] MEDS: ACETAMINOPHEN 325 MG TAB PO PRN (15:11)
[2022-09-02] MEDS ORDERED: AMINO ACID INFUSION IN D10W 1,000 ML IV NR (20:00)
[2022-09-02] MEDS: ATORVASTATIN 20 MG TAB PO SCH (21:42)
[2022-09-03] VITALS (108 sets, daily range): BP systolic 90–128; BP diastolic 31–57; PULSE 59–60; RESP 12–35; TEMP 99–100.4; O2SAT 88–100
[2022-09-03] MEDS: InsuLIN REG 1unit/0.01ml Soln (100units/ml) SC SCH ×5 (01:13→23:39)
[2022-09-03] MEDS: ACCU-CHEK COMFORT CURVE STRIP VI SCH ×5 (01:13→23:39)
[2022-09-03] MEDS: NOREPINEPHRINE 8 MG/250ML KIT 250 ML IV SCH ×2 (01:14→11:48)
[2022-09-03] MEDS: MIDAZOLAM DRIP 50 mg/50mL 50 ML IV SCH (01:15)
[2022-09-03 03:50] LABS: Urine Amorphous Crystal FEW /hpf (None Seen); Urine Bacteria FEW /hpf (None Seen); Urine Blood 2+ /uL (Negative); Urine Clarity HAZY (Clear); Urine Color Yellow (Yellow); Urine Protein, UAD 2+ (Negative); Urine Specific Gravity 1.024 (1.001-1.035); Urine Urobilinogen Normal (Negative); Urine WBC 9 /hpf (0 - 3)
[2022-09-03 04:15] LABS: Basophils # (auto) 0 10 ^3/uL (0-0.2); Basophils % (auto) 0.2 % (0.0-2.0); Eosinophils # (auto) 0 10 ^3/uL (0-0.8); Eosinophils % (auto) 0.1 % (0.0-7.0); Hematocrit 35.8 % (41.0-53.0); Hemoglobin 11.6 g/dL (13.5-17.5); Lymphocytes # (auto) 0.5 10 ^3/uL (0.4-5.4); Lymphocytes % (auto) 2.2 % (10.0-50.0); Mean Corpuscular Hemoglobin 31.3 pg (28.0-32.0); Mean Corpuscular Hgb Conc. 32.4 g/dL (32.0-36.0); Mean Corpuscular Volume 96.8 fL (80.0-100.0); Monocytes # (auto) 1.9 10 ^3/uL (0-1.3); Monocytes % (auto) 7.9 % (0.0-12.0); Neutrophils # (auto) 21.5 10 ^3/uL (1.6-8.6); Neutrophils % (auto) 89.6 % (37.0-80.0); Nucleated Red Blood Cells % 0.1 %; Red Blood Cells 3.71 10^6/uL (4.5-5.90); Red Cell Distribution Width 15.6 % (11.8-14.3)
[2022-09-03 04:42] LABS: Albumin 1.8 g/dL (3.4-5.0); BUN/Creatinine Ratio 31.8 (10.0-20.0); Magnesium 1.9 mg/dL (1.6-2.6); Potassium 4.4 mmol/L (3.5-5.1)
[2022-09-03 04:47] LABS: Bilirubin, Total 0.6 mg/dL (0.2-1.0); Phosphorus 3.9 mg/dL (2.5-4.90); Total Protein 6.6 g/dL (6.4-8.2)
[2022-09-03] MEDS: SODIUM CHLOR 0.9% PF (SALINE LOCK) 10ML VIAL/SYR IV SCH ×5 (06:36→22:23)
[2022-09-03] MEDS: LINEZOLID 600MG/300ML 300 ML IV SCH ×2 (06:36→18:07)
[2022-09-03 07:03] LABS: Base Excess -9.8 mmol/L (-2.0-2.0)
[2022-09-03] MEDS ORDERED: MAGNESIUM SULFATE 1GM/100ML 100 ML IV ONE (07:45)
[2022-09-03 08:28] LABS: Eosinophils # (auto) 0 10 ^3/uL (0-0.8); Eosinophils % (auto) 0.2 % (0.0-7.0); Lymphocytes # (auto) 0.7 10 ^3/uL (0.4-5.4); Lymphocytes % (auto) 3.2 % (10.0-50.0); White Blood Cell 21.5 10^3/uL (4.4-10.8)
[2022-09-03 08:30] LABS: Basophils # (auto) 0 10 ^3/uL (0-0.2); Basophils % (auto) 0.2 % (0.0-2.0); Hematocrit 35.8 % (41.0-53.0); Hemoglobin 10.9 g/dL (13.5-17.5); Mean Corpuscular Hemoglobin 30.7 pg (28.0-32.0); Mean Corpuscular Hgb Conc. 30.4 g/dL (32.0-36.0); Mean Corpuscular Volume 101.1 fL (80.0-100.0); Monocytes # (auto) 1.7 10 ^3/uL (0-1.3); Monocytes % (auto) 7.8 % (0.0-12.0); Neutrophils # (auto) 19.1 10 ^3/uL (1.6-8.6); Neutrophils % (auto) 88.6 % (37.0-80.0); Nucleated Red Blood Cells % 0.1 %; Red Blood Cells 3.54 10^6/uL (4.5-5.90); Red Cell Distribution Width 16.3 % (11.8-14.3)
[2022-09-03] MEDS: BUMETANIDE 2.5mg/10ml (0.25 mg/ml) INJ IV SCH ×4 (08:30→22:22)
[2022-09-03 08:47] LABS: Calcium 7.2 mg/dL (8.5-10.1)
[2022-09-03 08:54] LABS: BUN/Creatinine Ratio 31.4 (10.0-20.0)
[2022-09-03] MEDS: ALBUMIN 25% 100 ML IV SCH ×2 (09:34→21:50)
[2022-09-03] MEDS: PANTOPRAZOLE 40 MG/10 ML VIAL INJ IV SCH (09:54)
[2022-09-03] MEDS: LACTULOSE 20Gm/30ML SOLN PO SCH ×2 (09:54→22:00)
[2022-09-03] MEDS: ASPirin 81 mg TAB PO SCH (09:55)
[2022-09-03] MEDS: ENOXAPARIN SOD 40 MG/0.4 ML SYRINGE SC SCH (09:56)
[2022-09-03] MEDS: METOPROLOL TARTRATE 25 MG TAB PO SCH ×2 (10:00→22:00)
[2022-09-03] MEDS ORDERED: CYANOCOBALAMIN (B-12) 1000 MCG/1 ML VIAL IM ONE (10:00)
[2022-09-03] MEDS: CEFEPIME 2GM/50ML NS 50 ML IV SCH (10:01)
[2022-09-03 10:28] LABS: Potassium 4.1 mmol/L (3.5-5.1)
[2022-09-03 10:32] LABS: BUN/Creatinine Ratio 31.9 (10.0-20.0); Calcium 7.6 mg/dL (8.5-10.1)
[2022-09-03] MEDS: fentaNYL Drip 2500mCg/250mlNS 250 ML IV SCH (17:09)
[2022-09-03] MEDS ORDERED: AMINO ACID INFUSION IN D10W 1,000 ML IV NR (20:00)
[2022-09-03] MEDS: ATORVASTATIN 20 MG TAB PO SCH (22:00)
[2022-09-03] MEDS: METOCLOPRAMIDE HCL 5MG/ml INJ 2ml VIAL IV SCH (22:27)
[2022-09-04] VITALS (106 sets, daily range): BP systolic 81–148; BP diastolic 17–43; PULSE 59–75; RESP 17–22; TEMP 97.5–99; O2SAT 90–100
[2022-09-04] MEDS: NOREPINEPHRINE 8 MG/250ML KIT 250 ML IV SCH ×3 (02:40→18:02)
[2022-09-04 05:19] LABS: Basophils # (auto) 0.1 10 ^3/uL (0-0.2); Basophils % (auto) 0.4 % (0.0-2.0); Eosinophils # (auto) 0.1 10 ^3/uL (0-0.8); Eosinophils % (auto) 0.4 % (0.0-7.0); Hematocrit 31.7 % (41.0-53.0); Hemoglobin 10.5 g/dL (13.5-17.5); Lymphocytes # (auto) 0.5 10 ^3/uL (0.4-5.4); Lymphocytes % (auto) 2.4 % (10.0-50.0); Mean Corpuscular Hemoglobin 31.2 pg (28.0-32.0); Mean Corpuscular Hgb Conc. 33.2 g/dL (32.0-36.0); Monocytes # (auto) 1.7 10 ^3/uL (0-1.3); Monocytes % (auto) 7.4 % (0.0-12.0); Neutrophils # (auto) 20.3 10 ^3/uL (1.6-8.6); Neutrophils % (auto) 89.4 % (37.0-80.0); Red Blood Cells 3.38 10^6/uL (4.5-5.90); Red Cell Distribution Width 15.1 % (11.8-14.3); White Blood Cell 22.7 10^3/uL (4.4-10.8)
[2022-09-04] MEDS: ACCU-CHEK COMFORT CURVE STRIP VI SCH ×4 (05:23→23:32)
[2022-09-04] MEDS: InsuLIN REG 1unit/0.01ml Soln (100units/ml) SC SCH ×4 (05:23→23:35)
[2022-09-04] MEDS: MIDAZOLAM DRIP 50 mg/50mL 50 ML IV SCH (05:30)
[2022-09-04] MEDS: ALBUMIN 25% 100 ML IV SCH ×2 (05:30→21:42)
[2022-09-04] MEDS: SODIUM CHLOR 0.9% PF (SALINE LOCK) 10ML VIAL/SYR IV SCH ×5 (05:33→22:47)
[2022-09-04] MEDS: METOCLOPRAMIDE HCL 5MG/ml INJ 2ml VIAL IV SCH ×3 (05:33→22:46)
[2022-09-04 05:35] LABS: Potassium 4.7 mmol/L (3.5-5.1)
[2022-09-04 05:43] LABS: Albumin 2.4 g/dL (3.4-5.0); BUN/Creatinine Ratio 29.3 (10.0-20.0); Bilirubin, Total 0.7 mg/dL (0.2-1.0); Calcium 8.3 mg/dL (8.5-10.1); Magnesium 2.5 mg/dL (1.6-2.6); Phosphorus 4.5 mg/dL (2.5-4.90); Total Protein 6.5 g/dL (6.4-8.2)
[2022-09-04] MEDS: BUMETANIDE 2.5mg/10ml (0.25 mg/ml) INJ IV SCH ×3 (06:25→22:43)
[2022-09-04] MEDS: LINEZOLID 600MG/300ML 300 ML IV SCH ×2 (06:25→17:56)
[2022-09-04 07:48] LABS: Base Excess -11.9 mmol/L (-2.0-2.0)
[2022-09-04 08:06] LABS: Homocyst(e)ine 19.3 umol/L (0.0-19.2)
[2022-09-04] MEDS ORDERED: SODIUM BICARBONATE 8.4% INJ 50ML SYRINGE ONE (08:27)
[2022-09-04] MEDS ORDERED: SODIUM BICARBONATE 8.4 % INJ 50ML VIAL IV ONE (08:30)
[2022-09-04] MEDS: METOPROLOL TARTRATE 25 MG TAB PO SCH ×2 (10:00→22:00)
[2022-09-04] MEDS ORDERED: ENOXAPARIN SOD 30 MG/0.3 ML SYRINGE SC SCH (10:00)
[2022-09-04] MEDS: CEFEPIME 2GM/50ML NS 50 ML IV SCH (10:34)
[2022-09-04] MEDS: ASPirin 81 mg TAB PO SCH (10:34)
[2022-09-04] MEDS: CYANOCOBALAMIN 500 MCG TAB PO SCH (10:34)
[2022-09-04] MEDS: LACTULOSE 20Gm/30ML SOLN PO SCH ×2 (10:38→22:51)
[2022-09-04] MEDS: PANTOPRAZOLE 40 MG/10 ML VIAL INJ IV SCH (10:38)
[2022-09-04] MEDS: SODIUM BICARBONATE 50ML VIAL 150 ML in D5W 5% 1,000 ML IV SCH ×2 (10:54→22:41)
[2022-09-04] MEDS ORDERED: HEPARIN DRIP/D5W 100UNITS/ML 250 ML IV SCH (20:45)
[2022-09-04 22:08] LABS: Eosinophils # (auto) 0.1 10 ^3/uL (0-0.8); Monocytes # (auto) 1.4 10 ^3/uL (0-1.3); Neutrophils # (auto) 17.5 10 ^3/uL (1.6-8.6)
[2022-09-04 22:14] LABS: Basophils # (auto) 0.1 10 ^3/uL (0-0.2); Basophils % (auto) 0.3 % (0.0-2.0); Eosinophils % (auto) 0.4 % (0.0-7.0); Hematocrit 31.1 % (41.0-53.0); Lymphocytes # (auto) 0.6 10 ^3/uL (0.4-5.4); Lymphocytes % (auto) 3.1 % (10.0-50.0); Mean Corpuscular Hemoglobin 30.6 pg (28.0-32.0); Mean Corpuscular Hgb Conc. 32.2 g/dL (32.0-36.0); Mean Corpuscular Volume 95.1 fL (80.0-100.0); Neutrophils % (auto) 89.2 % (37.0-80.0); Red Blood Cells 3.27 10^6/uL (4.5-5.90); Red Cell Distribution Width 15.1 % (11.8-14.3); White Blood Cell 19.6 10^3/uL (4.4-10.8)
[2022-09-04 22:23] LABS: INR 1.14 (0.9-1.15); Partial Thromboplastin Time 38.6 SEC (24.5-34.5); Prothrombin Time 11.9 sec (9.3-11.8)
[2022-09-04] MEDS: ATORVASTATIN 20 MG TAB PO SCH (22:50)
[2022-09-05] VITALS (109 sets, daily range): BP systolic 65–144; BP diastolic 14–63; PULSE 59–69; RESP 13–21; TEMP 97.3–99.1; O2SAT 88–100
[2022-09-05] MEDS: NOREPINEPHRINE 8 MG/250ML KIT 250 ML IV SCH ×3 (01:12→15:29)
[2022-09-05] MEDS: MIDAZOLAM DRIP 50 mg/50mL 50 ML IV SCH ×2 (04:08→23:13)
[2022-09-05] MEDS: fentaNYL Drip 2500mCg/250mlNS 250 ML IV SCH ×2 (04:16→11:00)
[2022-09-05 04:19] LABS: Calcium 7.3 mg/dL (8.5-10.1); Potassium 4.1 mmol/L (3.5-5.1)
[2022-09-05 04:23] LABS: Basophils # (auto) 0 10 ^3/uL (0-0.2); Basophils % (auto) 0.2 % (0.0-2.0); Eosinophils # (auto) 0.1 10 ^3/uL (0-0.8); Eosinophils % (auto) 0.7 % (0.0-7.0); Hematocrit 28.3 % (41.0-53.0); Hemoglobin 9.2 g/dL (13.5-17.5); Lymphocytes # (auto) 0.7 10 ^3/uL (0.4-5.4); Mean Corpuscular Hemoglobin 30.9 pg (28.0-32.0); Mean Corpuscular Hgb Conc. 32.5 g/dL (32.0-36.0); Mean Corpuscular Volume 95.1 fL (80.0-100.0); Monocytes # (auto) 1.1 10 ^3/uL (0-1.3); Monocytes % (auto) 6.5 % (0.0-12.0); Neutrophils # (auto) 14.6 10 ^3/uL (1.6-8.6); Neutrophils % (auto) 88.6 % (37.0-80.0); Nucleated Red Blood Cells % 0.1 %; Red Blood Cells 2.97 10^6/uL (4.5-5.90); Red Cell Distribution Width 14.5 % (11.8-14.3); White Blood Cell 16.5 10^3/uL (4.4-10.8)
[2022-09-05 04:25] LABS: Albumin 2.3 g/dL (3.4-5.0); BUN/Creatinine Ratio 27.6 (10.0-20.0); Bilirubin, Total 0.6 mg/dL (0.2-1.0); Magnesium 2.4 mg/dL (1.6-2.6); Total Protein 5.8 g/dL (6.4-8.2)
[2022-09-05] MEDS: ALBUMIN 25% 100 ML IV SCH ×2 (05:12→21:38)
[2022-09-05] MEDS: InsuLIN REG 1unit/0.01ml Soln (100units/ml) SC SCH ×3 (05:39→17:53)
[2022-09-05] MEDS: ACCU-CHEK COMFORT CURVE STRIP VI SCH ×3 (05:40→17:50)
[2022-09-05] MEDS: SODIUM CHLOR 0.9% PF (SALINE LOCK) 10ML VIAL/SYR IV SCH ×5 (05:41→21:56)
[2022-09-05] MEDS: METOCLOPRAMIDE HCL 5MG/ml INJ 2ml VIAL IV SCH ×3 (06:13→21:39)
[2022-09-05] MEDS: BUMETANIDE 2.5mg/10ml (0.25 mg/ml) INJ IV SCH ×3 (06:13→21:39)
[2022-09-05] MEDS: LINEZOLID 600MG/300ML 300 ML IV SCH ×2 (06:13→17:47)
[2022-09-05 07:42] LABS: Base Excess -5.2 mmol/L (-2.0-2.0)
[2022-09-05] MEDS: HEPARIN DRIP/D5W 100UNITS/ML 250 ML IV SCH ×2 (08:27→15:34)
[2022-09-05] MEDS ORDERED: SODIUM CHL 0.9% 1000 ML BAG XX ONE (09:30)
[2022-09-05] MEDS: METOPROLOL TARTRATE 25 MG TAB PO SCH ×2 (09:46→21:56)
[2022-09-05] MEDS: CEFEPIME 2GM/50ML NS 50 ML IV SCH (09:55)
[2022-09-05] MEDS: ASPirin 81 mg TAB PO SCH (09:55)
[2022-09-05] MEDS: LACTULOSE 20Gm/30ML SOLN PO SCH ×2 (09:55→21:56)
[2022-09-05] MEDS: CYANOCOBALAMIN 500 MCG TAB PO SCH (09:55)
[2022-09-05] MEDS: PANTOPRAZOLE 40 MG/10 ML VIAL INJ IV SCH (09:55)
[2022-09-05] MEDS: PYRIDOXINE HCL 50 MG TAB PO SCH (10:00)
[2022-09-05] MEDS: FOLIC ACID 1 MG TAB PO SCH (10:38)
[2022-09-05] MEDS: SODIUM BICARBONATE 50ML VIAL 150 ML in D5W 5% 1,000 ML IV SCH ×2 (10:39→22:31)
[2022-09-05] MEDS ORDERED: CATHFLO ACTIVASE (ALTEPLASE) 2 MG VIAL IV ONE (13:00)
[2022-09-05 15:13] LABS: INR 1.13 (0.9-1.15); Partial Thromboplastin Time 52.1 SEC (24.5-34.5); Prothrombin Time 11.8 sec (9.3-11.8)
[2022-09-05 16:44] LABS: Hepatitis A Ab IgM Negative; Hepatitis B Surface Antigen Negative (Negative); Hepatitis C Antibody Negative (Negative)
[2022-09-05 16:48] LABS: Hepatitis B Core IgM Positive
[2022-09-05] MEDS: ATORVASTATIN 20 MG TAB PO SCH (21:37)
[2022-09-05 22:07] LABS: INR 1.12 (0.9-1.15); Partial Thromboplastin Time 54.2 SEC (24.5-34.5); Prothrombin Time 11.7 sec (9.3-11.8)
[2022-09-06] VITALS (109 sets, daily range): BP systolic 85–172; BP diastolic 21–63; PULSE 59–63; RESP 12–19; TEMP 97.7–99.7; O2SAT 7–100
[2022-09-06] MEDS: ACCU-CHEK COMFORT CURVE STRIP VI SCH ×5 (00:12→23:52)
[2022-09-06] MEDS: NOREPINEPHRINE 8 MG/250ML KIT 250 ML IV SCH ×3 (00:22→17:49)
[2022-09-06 03:10] LABS: Hematocrit 25.9 % (41.0-53.0); Hemoglobin 8.7 g/dL (13.5-17.5); Mean Corpuscular Hemoglobin 31.1 pg (28.0-32.0); Mean Corpuscular Hgb Conc. 33.5 g/dL (32.0-36.0); Mean Corpuscular Volume 92.9 fL (80.0-100.0); Red Blood Cells 2.78 10^6/uL (4.5-5.90); Red Cell Distribution Width 14.2 % (11.8-14.3)
[2022-09-06 03:22] LABS: Basophils % (manual) 0 (0.0-2.0); Blast Cells 0; Eosinophils % (manual) 0 (0-7); Metamyelocytes % 0; Myelocytes % 0; Promyelocytes % 0; Reactive Lymphocytes 0
[2022-09-06 03:27] LABS: Calcium 7.1 mg/dL (8.5-10.1); Potassium 4.1 mmol/L (3.5-5.1)
[2022-09-06 03:29] LABS: INR 1.12 (0.9-1.15); Partial Thromboplastin Time 56.7 SEC (24.5-34.5); Prothrombin Time 11.7 sec (9.3-11.8)
[2022-09-06] MEDS: InsuLIN REG 1unit/0.01ml Soln (100units/ml) SC SCH ×5 (06:00→23:52)
[2022-09-06] MEDS: BUMETANIDE 2.5mg/10ml (0.25 mg/ml) INJ IV SCH ×3 (06:11→22:21)
[2022-09-06] MEDS: METOCLOPRAMIDE HCL 5MG/ml INJ 2ml VIAL IV SCH ×3 (06:11→22:21)
[2022-09-06] MEDS: LINEZOLID 600MG/300ML 300 ML IV SCH ×2 (06:12→17:48)
[2022-09-06] MEDS: ALBUMIN 25% 100 ML IV SCH ×2 (06:12→21:16)
[2022-09-06] MEDS: SODIUM CHLOR 0.9% PF (SALINE LOCK) 10ML VIAL/SYR IV SCH ×5 (06:13→22:22)
[2022-09-06 06:57] LABS: Band Neutrophils % (manual) 4; Lymphocytes % (manual) 8 (10.0-50.0); Monocytes % (manual) 8 (0-12); Platelet Estimate Decreased
[2022-09-06 06:58] LABS: Large Platelets FEW
[2022-09-06 07:27] LABS: Base Excess 4.3 mmol/L (-2.0-2.0)
[2022-09-06] MEDS: SODIUM BICARBONATE 50ML VIAL 150 ML in D5W 5% 1,000 ML IV SCH ×2 (08:15→13:39)
[2022-09-06] MEDS: METOPROLOL TARTRATE 25 MG TAB PO SCH ×2 (09:36→22:00)
[2022-09-06] MEDS: CEFEPIME 2GM/50ML NS 50 ML IV SCH (09:47)
[2022-09-06] MEDS: PANTOPRAZOLE 40 MG/10 ML VIAL INJ IV SCH (09:47)
[2022-09-06] MEDS: LACTULOSE 20Gm/30ML SOLN PO SCH ×2 (09:47→22:21)
[2022-09-06] MEDS: CYANOCOBALAMIN 500 MCG TAB PO SCH (09:48)
[2022-09-06] MEDS: ASPirin 81 mg TAB PO SCH (09:48)
[2022-09-06] MEDS: FOLIC ACID 1 MG TAB PO SCH (09:48)
[2022-09-06] MEDS: HEPARIN DRIP/D5W 100UNITS/ML 250 ML IV SCH (09:56)
[2022-09-06] MEDS: PYRIDOXINE HCL 50 MG TAB PO SCH (10:00)
[2022-09-06] MEDS: fentaNYL Drip 2500mCg/250mlNS 250 ML IV SCH ×2 (11:00→21:28)
[2022-09-06] MEDS ORDERED: SODIUM CHL 0.9% 1000 ML BAG XX ONE (15:15)
[2022-09-06] MEDS ORDERED: EPOETIN ALFA-EPBX 10,000 UNIT/1ML VIAL SC ONE (21:00)
[2022-09-06] MEDS: ATORVASTATIN 20 MG TAB PO SCH (22:21)
[2022-09-07] VITALS (111 sets, daily range): BP systolic 78–137; BP diastolic 31–59; PULSE 59–63; RESP 17–20; TEMP 96.6–99.3; O2SAT 91–100
[2022-09-07] MEDS: HEPARIN DRIP/D5W 100UNITS/ML 250 ML IV SCH (03:20)
[2022-09-07 03:41] LABS: Red Blood Cells 2.56 10^6/uL (4.5-5.90)
[2022-09-07 03:43] LABS: Hematocrit 23.6 % (41.0-53.0); Hemoglobin 8.1 g/dL (13.5-17.5); Mean Corpuscular Hemoglobin 31.7 pg (28.0-32.0); Mean Corpuscular Hgb Conc. 34.3 g/dL (32.0-36.0); Mean Corpuscular Volume 92.2 fL (80.0-100.0); White Blood Cell 10.9 10^3/uL (4.4-10.8)
[2022-09-07 03:53] LABS: Basophils % (manual) 0 (0.0-2.0); Blast Cells 0; Eosinophils % (manual) 0 (0-7); Metamyelocytes % 0; Myelocytes % 0; Promyelocytes % 0; Reactive Lymphocytes 0
[2022-09-07 04:22] LABS: BUN/Creatinine Ratio 21.9 (10.0-20.0); Calcium 7.3 mg/dL (8.5-10.1); Potassium 3.7 mmol/L (3.5-5.1)
[2022-09-07 04:33] LABS: INR 1.14 (0.9-1.15); Partial Thromboplastin Time 62.9 SEC (24.5-34.5); Prothrombin Time 11.9 sec (9.3-11.8)
[2022-09-07] MEDS: MIDAZOLAM DRIP 50 mg/50mL 50 ML IV SCH (05:00)
[2022-09-07] MEDS: ALBUMIN 25% 100 ML IV SCH ×2 (05:09→21:33)
[2022-09-07] MEDS: InsuLIN REG 1unit/0.01ml Soln (100units/ml) SC SCH ×3 (06:00→17:53)
[2022-09-07] MEDS: METOCLOPRAMIDE HCL 5MG/ml INJ 2ml VIAL IV SCH ×3 (06:18→21:34)
[2022-09-07] MEDS: SODIUM CHLOR 0.9% PF (SALINE LOCK) 10ML VIAL/SYR IV SCH ×5 (06:18→21:34)
[2022-09-07] MEDS: BUMETANIDE 2.5mg/10ml (0.25 mg/ml) INJ IV SCH ×3 (06:18→21:33)
[2022-09-07] MEDS: LINEZOLID 600MG/300ML 300 ML IV SCH (06:18)
[2022-09-07] MEDS: ACCU-CHEK COMFORT CURVE STRIP VI SCH ×3 (06:25→17:53)
[2022-09-07 08:31] LABS: Band Neutrophils % (manual) 6; Lymphocytes % (manual) 4 (10.0-50.0); Monocytes % (manual) 7 (0-12)
[2022-09-07 08:33] LABS: Platelet Estimate Decreased; RBC Morphology Normal
[2022-09-07] MEDS: FOLIC ACID 1 MG TAB PO SCH (09:56)
[2022-09-07] MEDS: PANTOPRAZOLE 40 MG/10 ML VIAL INJ IV SCH (09:56)
[2022-09-07] MEDS: LACTULOSE 20Gm/30ML SOLN PO SCH ×2 (09:57→21:34)
[2022-09-07] MEDS: CYANOCOBALAMIN 500 MCG TAB PO SCH (09:57)
[2022-09-07] MEDS: ASPirin 81 mg TAB PO SCH (09:58)
[2022-09-07] MEDS: METOPROLOL TARTRATE 25 MG TAB PO SCH ×2 (09:58→21:36)
[2022-09-07] MEDS: PYRIDOXINE HCL 50 MG TAB PO SCH (09:58)
[2022-09-07] MEDS: CEFEPIME 2GM/50ML NS 50 ML IV SCH (10:00)
[2022-09-07 11:42] LABS: Base Excess 6.3 mmol/L (-2.0-2.0)
[2022-09-07] MEDS: NOREPINEPHRINE 8 MG/250ML KIT 250 ML IV SCH (12:13)
[2022-09-07] MEDS ORDERED: POTASSIUM CHL 20MEQ/100ML 100 ML IV ONE (12:15)
[2022-09-07] MEDS ORDERED: VANCOMYCIN PER PHARMACY 0 MG IV SCH (13:00)
[2022-09-07] MEDS: ARGATROBAN 250 MG in SODIUM CHL 0.9% 248.5 ML IV SCH (13:29)
[2022-09-07] MEDS ORDERED: MEROPENEM 1GM IVPB 100 ML IV ONE (14:00)
[2022-09-07] MEDS: VANCOMYCIN 750mg/250ml 250 ML IV SCH ×2 (15:28→16:40)
[2022-09-07] MEDS: Nepro With Carb Steady 1 Liter Bottle GT SCH (15:59)
[2022-09-07 16:24] LABS: INR 2.62 (0.9-1.15); Prothrombin Time 25.8 sec (9.3-11.8)
[2022-09-07 16:30] LABS: Partial Thromboplastin Time 78.4 SEC (24.5-34.5)
[2022-09-07 20:12] LABS: Prothrombin Time 42.6 sec (9.3-11.8)
[2022-09-07 20:14] LABS: INR 4.48 (0.9-1.15); Partial Thromboplastin Time 96.3 SEC (24.5-34.5)
[2022-09-07] MEDS: ATORVASTATIN 20 MG TAB PO SCH (21:34)
[2022-09-07] MEDS: MEROPENEM 1GM IVPB 100 ML IV SCH (23:07)
[2022-09-07 23:43] LABS: Prothrombin Time 44.9 sec (9.3-11.8)
[2022-09-07 23:45] LABS: INR 4.73 (0.9-1.15); Partial Thromboplastin Time 92.7 SEC (24.5-34.5)
[2022-09-08] VITALS (107 sets, daily range): BP systolic 91–148; BP diastolic 37–54; PULSE 59–68; RESP 14–29; TEMP 98.1–99.1; O2SAT 86–98
[2022-09-08] MEDS: ACCU-CHEK COMFORT CURVE STRIP VI SCH ×5 (00:36→23:52)
[2022-09-08] MEDS: InsuLIN REG 1unit/0.01ml Soln (100units/ml) SC SCH ×5 (00:36→23:55)
[2022-09-08 03:44] LABS: Prothrombin Time 46.9 sec (9.3-11.8)
[2022-09-08 03:46] LABS: INR 4.96 (0.9-1.15); Partial Thromboplastin Time 94.3 SEC (24.5-34.5)
[2022-09-08 04:27] LABS: Hematocrit 24.5 % (41.0-53.0); Hemoglobin 8.3 g/dL (13.5-17.5); Red Blood Cells 2.65 10^6/uL (4.5-5.90)
[2022-09-08 04:30] LABS: Mean Corpuscular Hemoglobin 31.2 pg (28.0-32.0); Mean Corpuscular Hgb Conc. 33.7 g/dL (32.0-36.0); Mean Corpuscular Volume 92.4 fL (80.0-100.0); White Blood Cell 11.8 10^3/uL (4.4-10.8)
[2022-09-08 04:36] LABS: Albumin 2.7 g/dL (3.4-5.0); Calcium 7.8 mg/dL (8.5-10.1); Magnesium 1.9 mg/dL (1.6-2.6); Potassium 4.1 mmol/L (3.5-5.1)
[2022-09-08 04:38] LABS: BUN/Creatinine Ratio 22.9 (10.0-20.0)
[2022-09-08 04:42] LABS: Bilirubin, Total 0.9 mg/dL (0.2-1.0); Total Protein 6.3 g/dL (6.4-8.2)
[2022-09-08 04:44] LABS: Basophils % (manual) 0 (0.0-2.0); Blast Cells 0; Myelocytes % 0; Promyelocytes % 0; Reactive Lymphocytes 0
[2022-09-08] MEDS: MIDAZOLAM DRIP 50 mg/50mL 50 ML IV SCH (05:00)
[2022-09-08] MEDS: ALBUMIN 25% 100 ML IV SCH ×2 (05:18→20:55)
[2022-09-08] MEDS: SODIUM CHLOR 0.9% PF (SALINE LOCK) 10ML VIAL/SYR IV SCH ×5 (05:47→22:31)
[2022-09-08] MEDS: METOCLOPRAMIDE HCL 5MG/ml INJ 2ml VIAL IV SCH ×3 (05:47→22:31)
[2022-09-08] MEDS: BUMETANIDE 2.5mg/10ml (0.25 mg/ml) INJ IV SCH ×3 (06:18→22:30)
[2022-09-08 08:42] LABS: Prothrombin Time 45.8 sec (9.3-11.8)
[2022-09-08 08:44] LABS: INR 4.84 (0.9-1.15)
[2022-09-08] MEDS ORDERED: MAGNESIUM SULFATE 1GM/100ML 100 ML IV ONE (09:15)
[2022-09-08] MEDS: PANTOPRAZOLE 40 MG/10 ML VIAL INJ IV SCH (09:51)
[2022-09-08] MEDS: PYRIDOXINE HCL 50 MG TAB PO SCH (09:51)
[2022-09-08] MEDS: MEROPENEM 1GM IVPB 100 ML IV SCH (09:51)
[2022-09-08] MEDS: FOLIC ACID 1 MG TAB PO SCH (09:52)
[2022-09-08] MEDS: ASPirin 81 mg TAB PO SCH (09:52)
[2022-09-08] MEDS: LACTULOSE 20Gm/30ML SOLN PO SCH ×2 (09:52→22:31)
[2022-09-08] MEDS: CYANOCOBALAMIN 500 MCG TAB PO SCH (09:52)
[2022-09-08 10:15] LABS: Metamyelocytes % 1
[2022-09-08 10:16] LABS: Band Neutrophils % (manual) 6; Eosinophils % (manual) 1 (0-7); Lymphocytes % (manual) 4 (10.0-50.0); Monocytes % (manual) 6 (0-12)
[2022-09-08] MEDS: METOPROLOL TARTRATE 25 MG TAB PO SCH (10:17)
[2022-09-08 10:18] LABS: Platelet Estimate Decreased; RBC Morphology Normal
[2022-09-08] MEDS: fentaNYL Drip 2500mCg/250mlNS 250 ML IV SCH (11:00)
[2022-09-08 11:11] LABS: Partial Thromboplastin Time 58.1 SEC (24.5-34.5); Prothrombin Time 46.7 sec (9.3-11.8)
[2022-09-08 11:12] LABS: INR 4.94 (0.9-1.15)
[2022-09-08] MEDS: ARGATROBAN 250 MG in SODIUM CHL 0.9% 248.5 ML IV SCH ×2 (11:16→19:47)
[2022-09-08 11:31] LABS: Base Excess 3.3 mmol/L (-2.0-2.0)
[2022-09-08] MEDS: NOREPINEPHRINE 8 MG/250ML KIT 250 ML IV SCH (14:11)
[2022-09-08 17:23] LABS: Prothrombin Time 45.8 sec (9.3-11.8)
[2022-09-08 17:28] LABS: INR 4.84 (0.9-1.15); Partial Thromboplastin Time 93.8 SEC (24.5-34.5)
[2022-09-08 21:59] LABS: Prothrombin Time 43.3 sec (9.3-11.8)
[2022-09-08 22:10] LABS: Partial Thromboplastin Time 91.1 SEC (24.5-34.5)
[2022-09-08 22:11] LABS: INR 4.55 (0.9-1.15)
[2022-09-08] MEDS: ATORVASTATIN 20 MG TAB PO SCH (22:31)
[2022-09-08] MEDS: MEROPENEM 500MG IVPB 50 ML IV SCH (22:31)
[2022-09-09] VITALS (107 sets, daily range): BP systolic 93–172; BP diastolic 34–92; PULSE 59–69; RESP 8–26; TEMP 97.5–99.1; O2SAT 88–99
[2022-09-09 04:26] LABS: Red Cell Distribution Width 14.2 % (11.8-14.3)
[2022-09-09] MEDS: MIDAZOLAM DRIP 50 mg/50mL 50 ML IV SCH (04:27)
[2022-09-09 04:28] LABS: Hematocrit 23.1 % (41.0-53.0); Hemoglobin 7.7 g/dL (13.5-17.5); Mean Corpuscular Hemoglobin 31.1 pg (28.0-32.0); Mean Corpuscular Hgb Conc. 33.5 g/dL (32.0-36.0); Mean Corpuscular Volume 92.8 fL (80.0-100.0); Red Blood Cells 2.49 10^6/uL (4.5-5.90); White Blood Cell 12.7 10^3/uL (4.4-10.8)
[2022-09-09 04:31] LABS: Basophils % (manual) 0 (0.0-2.0); Blast Cells 0; Eosinophils % (manual) 0 (0-7); Metamyelocytes % 0; Promyelocytes % 0; Reactive Lymphocytes 0
[2022-09-09 04:42] LABS: Albumin 2.9 g/dL (3.4-5.0); BUN/Creatinine Ratio 23.3 (10.0-20.0); Calcium 8.2 mg/dL (8.5-10.1); Magnesium 2.4 mg/dL (1.6-2.6)
[2022-09-09 04:45] LABS: Bilirubin, Total 0.7 mg/dL (0.2-1.0); Total Protein 6.3 g/dL (6.4-8.2)
[2022-09-09 04:53] LABS: Prothrombin Time 46.4 sec (9.3-11.8)
[2022-09-09] MEDS: ALBUMIN 25% 100 ML IV SCH ×2 (04:55→20:52)
[2022-09-09 04:56] LABS: INR 4.9 (0.9-1.15); Partial Thromboplastin Time 95.2 SEC (24.5-34.5)
[2022-09-09] MEDS: METOCLOPRAMIDE HCL 5MG/ml INJ 2ml VIAL IV SCH (05:39)
[2022-09-09] MEDS: SODIUM CHLOR 0.9% PF (SALINE LOCK) 10ML VIAL/SYR IV SCH ×5 (05:39→21:39)
[2022-09-09] MEDS: ACCU-CHEK COMFORT CURVE STRIP VI SCH ×4 (05:39→23:11)
[2022-09-09] MEDS: BUMETANIDE 2.5mg/10ml (0.25 mg/ml) INJ IV SCH ×3 (05:40→21:39)
[2022-09-09 05:44] LABS: Band Neutrophils % (manual) 1; Lymphocytes % (manual) 3 (10.0-50.0); Monocytes % (manual) 5 (0-12); Myelocytes % 1
[2022-09-09 05:45] LABS: Large Platelets FEW; Platelet Estimate Decreased
[2022-09-09] MEDS: InsuLIN REG 1unit/0.01ml Soln (100units/ml) SC SCH ×4 (06:52→23:11)
[2022-09-09 07:51] LABS: Prothrombin Time 40.3 sec (9.3-11.8)
[2022-09-09 07:54] LABS: INR 4.22 (0.9-1.15); Partial Thromboplastin Time 90.8 SEC (24.5-34.5)
[2022-09-09 08:23] LABS: Base Excess 3.9 mmol/L (-2.0-2.0)
[2022-09-09] MEDS ORDERED: SODIUM CHL 0.9% 1000 ML BAG XX ONE (08:45)
[2022-09-09] MEDS: fentaNYL Drip 2500mCg/250mlNS 250 ML IV SCH (11:00)
[2022-09-09 11:53] LABS: INR > 8.0 (0.9-1.15)
[2022-09-09] MEDS: PANTOPRAZOLE 40 MG/10 ML VIAL INJ IV SCH (12:05)
[2022-09-09] MEDS: MEROPENEM 500MG IVPB 50 ML IV SCH ×2 (12:05→22:05)
[2022-09-09] MEDS: FOLIC ACID 1 MG TAB PO SCH (12:07)
[2022-09-09] MEDS: PYRIDOXINE HCL 50 MG TAB PO SCH (12:09)
[2022-09-09] MEDS: CYANOCOBALAMIN 500 MCG TAB PO SCH (12:10)
[2022-09-09] MEDS: ASPirin 81 mg TAB PO SCH (12:10)
[2022-09-09] MEDS ORDERED: ARGATROBAN 250 MG in SODIUM CHL 0.9% 248.5 ML IV SCH ×3 (12:45→21:30)
[2022-09-09] MEDS: NOREPINEPHRINE 8 MG/250ML KIT 250 ML IV SCH (12:51)
[2022-09-09 14:17] LABS: INR 2.65 (0.9-1.15); Partial Thromboplastin Time 65.5 SEC (24.5-34.5); Prothrombin Time 26.1 sec (9.3-11.8)
[2022-09-09] MEDS: Nepro With Carb Steady 1 Liter Bottle GT SCH (17:40)
[2022-09-09 18:41] LABS: INR 2.25 (0.9-1.15); Partial Thromboplastin Time 66.4 SEC (24.5-34.5); Prothrombin Time 22.4 sec (9.3-11.8)
[2022-09-09] MEDS ORDERED: EPOETIN ALFA-EPBX 10,000 UNIT/1ML VIAL SC ONE (21:00)
[2022-09-09 21:16] LABS: INR 1.59 (0.9-1.15); Partial Thromboplastin Time 53.8 SEC (24.5-34.5); Prothrombin Time 16.2 sec (9.3-11.8)
[2022-09-09] MEDS: ATORVASTATIN 20 MG TAB PO SCH (21:39)
[2022-09-10] VITALS (108 sets, daily range): BP systolic 95–147; BP diastolic 34–99; PULSE 50–85; RESP 12–27; TEMP 97.3–99.7; O2SAT 91–100
[2022-09-10 02:01] LABS: INR 2.12 (0.9-1.15); Partial Thromboplastin Time 60.1 SEC (24.5-34.5); Prothrombin Time 21.2 sec (9.3-11.8)
[2022-09-10 03:55] LABS: Red Blood Cells 2.18 10^6/uL (4.5-5.90)
[2022-09-10 03:57] LABS: Hematocrit 20.2 % (41.0-53.0); Mean Corpuscular Hemoglobin 31.5 pg (28.0-32.0); Mean Corpuscular Hgb Conc. 33.9 g/dL (32.0-36.0); Red Cell Distribution Width 13.9 % (11.8-14.3); White Blood Cell 9.9 10^3/uL (4.4-10.8)
[2022-09-10 04:08] LABS: Hemoglobin 6.9 g/dL (13.5-17.5)
[2022-09-10 04:12] LABS: Albumin 3.1 g/dL (3.4-5.0); BUN/Creatinine Ratio 22.9 (10.0-20.0); Calcium 8.4 mg/dL (8.5-10.1); Magnesium 2.2 mg/dL (1.6-2.6); Potassium 3.9 mmol/L (3.5-5.1)
[2022-09-10 04:14] LABS: Bilirubin, Total 0.6 mg/dL (0.2-1.0); Total Protein 6.1 g/dL (6.4-8.2)
[2022-09-10] MEDS: MIDAZOLAM DRIP 50 mg/50mL 50 ML IV SCH (05:00)
[2022-09-10] MEDS: ALBUMIN 25% 100 ML IV SCH ×3 (05:20→21:51)
[2022-09-10 05:23] LABS: Basophils % (manual) 0 (0.0-2.0); Blast Cells 0; Eosinophils % (manual) 0 (0-7); Metamyelocytes % 0; Promyelocytes % 0; Reactive Lymphocytes 0
[2022-09-10] MEDS: InsuLIN REG 1unit/0.01ml Soln (100units/ml) SC SCH ×3 (06:00→17:28)
[2022-09-10] MEDS: BUMETANIDE 2.5mg/10ml (0.25 mg/ml) INJ IV SCH ×3 (06:13→22:01)
[2022-09-10] MEDS: SODIUM CHLOR 0.9% PF (SALINE LOCK) 10ML VIAL/SYR IV SCH ×5 (06:15→22:01)
[2022-09-10] MEDS: ACCU-CHEK COMFORT CURVE STRIP VI SCH ×3 (06:16→17:28)
[2022-09-10 06:44] LABS: Band Neutrophils % (manual) 1; Lymphocytes % (manual) 5 (10.0-50.0); Monocytes % (manual) 12 (0-12); Myelocytes % 1
[2022-09-10 06:45] LABS: Large Platelets FEW; Platelet Estimate Decreased
[2022-09-10 06:57] LABS: INR 3.23 (0.9-1.15); Prothrombin Time 31.4 sec (9.3-11.8)
[2022-09-10] MEDS ORDERED: OCTREOTIDE ACETATE 100 MCG in SODIUM CHL 0.9% 50 ML IV ONE (07:15)
[2022-09-10 07:51] LABS: Base Excess 0.9 mmol/L (-2.0-2.0)
[2022-09-10] MEDS: PANTOPRAZOLE 40mg/50ML NS AE 50 ML IV SCH ×3 (08:34→17:46)
[2022-09-10] MEDS: OCTREOTIDE ACETATE 500 MCG in SODIUM CHL 0.9% 99 ML IV SCH ×2 (08:46→17:33)
[2022-09-10 09:18] LABS: Ferritin 656.9 ng/mL (10-322)
[2022-09-10] MEDS: MEROPENEM 500MG IVPB 50 ML IV SCH ×2 (09:36→22:01)
[2022-09-10] MEDS: FOLIC ACID 1 MG TAB PO SCH (09:36)
[2022-09-10] MEDS: ASPirin 81 mg TAB PO SCH (09:36)
[2022-09-10] MEDS: CYANOCOBALAMIN 500 MCG TAB PO SCH (09:37)
[2022-09-10] MEDS: PYRIDOXINE HCL 50 MG TAB PO SCH (09:38)
[2022-09-10 10:22] LABS: % Iron Saturation 14.1 % (20-55)
[2022-09-10] MEDS: fentaNYL Drip 2500mCg/250mlNS 250 ML IV SCH (11:00)
[2022-09-10] MEDS ORDERED: VANCOMYCIN 1GM/250ML 250 ML IV ONE (14:00)
[2022-09-10] MEDS: NOREPINEPHRINE 8 MG/250ML KIT 250 ML IV SCH (14:30)
[2022-09-10] MEDS: ATORVASTATIN 20 MG TAB PO SCH (22:02)
[2022-09-11] VITALS (107 sets, daily range): BP systolic 113–166; BP diastolic 46–81; PULSE 56–87; RESP 12–28; TEMP 97.5–99.7; O2SAT 92–100
[2022-09-11] MEDS: PANTOPRAZOLE 40mg/50ML NS AE 50 ML IV SCH ×6 (00:01→23:41)
[2022-09-11] MEDS: ACCU-CHEK COMFORT CURVE STRIP VI SCH ×4 (00:01→17:53)
[2022-09-11] MEDS: OCTREOTIDE ACETATE 500 MCG in SODIUM CHL 0.9% 99 ML IV SCH ×2 (01:46→13:54)
[2022-09-11 04:21] LABS: Hemoglobin 7.6 g/dL (13.5-17.5); White Blood Cell 12.9 10^3/uL (4.4-10.8)
[2022-09-11 04:29] LABS: Hematocrit 22.5 % (41.0-53.0); Mean Corpuscular Hemoglobin 31.1 pg (28.0-32.0); Mean Corpuscular Hgb Conc. 33.6 g/dL (32.0-36.0); Mean Corpuscular Volume 92.4 fL (80.0-100.0); Red Blood Cells 2.43 10^6/uL (4.5-5.90); Red Cell Distribution Width 14.6 % (11.8-14.3)
[2022-09-11 04:45] LABS: Albumin 3.4 g/dL (3.4-5.0); Calcium 8.2 mg/dL (8.5-10.1); Magnesium 2.2 mg/dL (1.6-2.6); Potassium 3.8 mmol/L (3.5-5.1)
[2022-09-11 04:47] LABS: BUN/Creatinine Ratio 23.2 (10.0-20.0)
[2022-09-11] MEDS: MIDAZOLAM DRIP 50 mg/50mL 50 ML IV SCH (04:47)
[2022-09-11 04:50] LABS: Bilirubin, Total 0.8 mg/dL (0.2-1.0); Total Protein 6.6 g/dL (6.4-8.2)
[2022-09-11 04:52] LABS: Basophils % (manual) 0 (0.0-2.0); Blast Cells 0; Eosinophils % (manual) 0 (0-7); Metamyelocytes % 0; Myelocytes % 0; Promyelocytes % 0; Reactive Lymphocytes 0
[2022-09-11] MEDS: InsuLIN REG 1unit/0.01ml Soln (100units/ml) SC SCH ×4 (06:00→18:21)
[2022-09-11] MEDS: ALBUMIN 25% 100 ML IV SCH ×3 (06:01→21:13)
[2022-09-11] MEDS: BUMETANIDE 2.5mg/10ml (0.25 mg/ml) INJ IV SCH ×3 (06:01→21:51)
[2022-09-11] MEDS: SODIUM CHLOR 0.9% PF (SALINE LOCK) 10ML VIAL/SYR IV SCH ×5 (06:01→21:51)
[2022-09-11] MEDS ORDERED: SODIUM CHL 0.9% 1000 ML BAG XX ONE (07:00)
[2022-09-11 07:30] LABS: Base Excess 3.4 mmol/L (-2.0-2.0)
[2022-09-11 07:55] LABS: Band Neutrophils % (manual) 1; Lymphocytes % (manual) 6 (10.0-50.0); Monocytes % (manual) 6 (0-12)
[2022-09-11 07:58] LABS: Platelet Estimate Adequate
[2022-09-11] MEDS: CYANOCOBALAMIN 500 MCG TAB PO SCH (10:04)
[2022-09-11] MEDS: FOLIC ACID 1 MG TAB PO SCH (10:04)
[2022-09-11] MEDS: PYRIDOXINE HCL 50 MG TAB PO SCH (10:04)
[2022-09-11 10:40] LABS: Folate (Folic Acid) 11.66 ng/mL (5.38-24)
[2022-09-11] MEDS: fentaNYL Drip 2500mCg/250mlNS 250 ML IV SCH (11:00)
[2022-09-11] MEDS: MEROPENEM 500MG IVPB 50 ML IV SCH ×2 (13:26→21:51)
[2022-09-11] MEDS: NOREPINEPHRINE 8 MG/250ML KIT 250 ML IV SCH (14:30)
[2022-09-12] VITALS (101 sets, daily range): BP systolic 121–164; BP diastolic 48–69; PULSE 59–68; RESP 16–32; TEMP 98.2–99.5; O2SAT 90–100
[2022-09-12] MEDS: OCTREOTIDE ACETATE 500 MCG in SODIUM CHL 0.9% 99 ML IV SCH ×2 (01:50→10:13)
[2022-09-12 03:48] LABS: Hematocrit 22.1 % (41.0-53.0); Red Cell Distribution Width 14.6 % (11.8-14.3)
[2022-09-12 03:50] LABS: Hemoglobin 7.3 g/dL (13.5-17.5); Mean Corpuscular Hemoglobin 30.8 pg (28.0-32.0); Mean Corpuscular Hgb Conc. 33.2 g/dL (32.0-36.0); Mean Corpuscular Volume 92.7 fL (80.0-100.0); Red Blood Cells 2.38 10^6/uL (4.5-5.90)
[2022-09-12 03:58] LABS: Band Neutrophils % (manual) 0; Basophils % (manual) 0 (0.0-2.0); Blast Cells 0; Metamyelocytes % 0; Myelocytes % 0; Promyelocytes % 0; Reactive Lymphocytes 0
[2022-09-12 04:07] LABS: BUN/Creatinine Ratio 22.6 (10.0-20.0)
[2022-09-12] MEDS: PANTOPRAZOLE 40mg/50ML NS AE 50 ML IV SCH ×4 (04:34→21:44)
[2022-09-12] MEDS: MIDAZOLAM DRIP 50 mg/50mL 50 ML IV SCH (05:00)
[2022-09-12 05:37] LABS: Eosinophils % (manual) 1 (0-7); Lymphocytes % (manual) 6 (10.0-50.0); Monocytes % (manual) 10 (0-12); Platelet Estimate Decreased
[2022-09-12 05:38] LABS: Giant Platelets Few; Large Platelets FEW
[2022-09-12] MEDS: ALBUMIN 25% 100 ML IV SCH ×3 (05:46→21:46)
[2022-09-12] MEDS: ACCU-CHEK COMFORT CURVE STRIP VI SCH ×5 (05:49→23:50)
[2022-09-12] MEDS: SODIUM CHLOR 0.9% PF (SALINE LOCK) 10ML VIAL/SYR IV SCH ×5 (05:49→22:00)
[2022-09-12] MEDS: BUMETANIDE 2.5mg/10ml (0.25 mg/ml) INJ IV SCH ×3 (05:51→21:45)
[2022-09-12] MEDS: InsuLIN REG 1unit/0.01ml Soln (100units/ml) SC SCH ×5 (06:30→23:50)
[2022-09-12 08:29] LABS: Base Excess 3.9 mmol/L (-2.0-2.0)
[2022-09-12] MEDS: FOLIC ACID 1 MG TAB PO SCH (10:13)
[2022-09-12] MEDS: CYANOCOBALAMIN 500 MCG TAB PO SCH (10:13)
[2022-09-12] MEDS: MEROPENEM 500MG IVPB 50 ML IV SCH ×2 (10:13→21:44)
[2022-09-12] MEDS: PYRIDOXINE HCL 50 MG TAB PO SCH (10:14)
[2022-09-12] MEDS: fentaNYL Drip 2500mCg/250mlNS 250 ML IV SCH (11:00)
[2022-09-12] MEDS ORDERED: metOLazone 5 MG TAB PO ONE (14:30)
[2022-09-12] MEDS: NOREPINEPHRINE 8 MG/250ML KIT 250 ML IV SCH (14:30)
[2022-09-12 14:42] LABS: % Iron Saturation 14.3 % (20-55)
[2022-09-13] VITALS (71 sets, daily range): BP systolic 132–177; BP diastolic 53–68; PULSE 60–69; RESP 14–27; TEMP 97.9–98.8; O2SAT 94–100
[2022-09-13 03:42] LABS: Hemoglobin 7.3 g/dL (13.5-17.5)
[2022-09-13 03:44] LABS: Hematocrit 21.7 % (41.0-53.0); Mean Corpuscular Hemoglobin 31.1 pg (28.0-32.0); Mean Corpuscular Hgb Conc. 33.6 g/dL (32.0-36.0); Mean Corpuscular Volume 92.6 fL (80.0-100.0); Red Blood Cells 2.34 10^6/uL (4.5-5.90); Red Cell Distribution Width 14.2 % (11.8-14.3); White Blood Cell 12.5 10^3/uL (4.4-10.8)
[2022-09-13 03:55] LABS: Band Neutrophils % (manual) 0; Basophils % (manual) 0 (0.0-2.0); Blast Cells 0; Eosinophils % (manual) 0 (0-7); INR 1.14 (0.9-1.15); Promyelocytes % 0; Prothrombin Time 11.9 sec (9.3-11.8); Reactive Lymphocytes 0
[2022-09-13 04:06] LABS: BUN/Creatinine Ratio 24.7 (10.0-20.0); Calcium 9.2 mg/dL (8.5-10.1); Potassium 4.1 mmol/L (3.5-5.1)
[2022-09-13] MEDS: MIDAZOLAM DRIP 50 mg/50mL 50 ML IV SCH (05:00)
[2022-09-13] MEDS: BUMETANIDE 2.5mg/10ml (0.25 mg/ml) INJ IV SCH ×3 (05:34→21:51)
[2022-09-13] MEDS: ALBUMIN 25% 100 ML IV SCH ×3 (05:35→21:51)
[2022-09-13] MEDS: SODIUM CHLOR 0.9% PF (SALINE LOCK) 10ML VIAL/SYR IV SCH ×5 (05:35→21:52)
[2022-09-13] MEDS: ACCU-CHEK COMFORT CURVE STRIP VI SCH ×3 (05:35→23:33)
[2022-09-13] MEDS: InsuLIN REG 1unit/0.01ml Soln (100units/ml) SC SCH ×3 (05:45→23:33)
[2022-09-13 06:45] LABS: Lymphocytes % (manual) 10 (10.0-50.0); Metamyelocytes % 1; Monocytes % (manual) 6 (0-12); Myelocytes % 1
[2022-09-13 06:46] LABS: Large Platelets FEW; Platelet Estimate Decreased
[2022-09-13 08:27] LABS: Base Excess 4.2 mmol/L (-2.0-2.0)
[2022-09-13] MEDS: MEROPENEM 500MG IVPB 50 ML IV SCH ×2 (09:07→21:52)
[2022-09-13] MEDS: CYANOCOBALAMIN 500 MCG TAB PO SCH (09:09)
[2022-09-13] MEDS: PYRIDOXINE HCL 50 MG TAB PO SCH (09:10)
[2022-09-13] MEDS: FOLIC ACID 1 MG TAB PO SCH (09:10)
[2022-09-13] MEDS: PANTOPRAZOLE 40 MG/10 ML VIAL INJ IV SCH (09:11)
[2022-09-13] MEDS ORDERED: SODIUM CHLORIDE 0.9% 1,000 ML IV ONE (09:30)
[2022-09-13] MEDS: NOREPINEPHRINE 8 MG/250ML KIT 250 ML IV SCH (14:30)
[2022-09-13] MEDS ORDERED: amLODIPine BESYLATE 5 MG TAB PO ONE (21:30)
[2022-09-14] VITALS (59 sets, daily range): BP systolic 123–176; BP diastolic 52–70; PULSE 59–65; RESP 15–33; TEMP 97–99.1; O2SAT 95–100
[2022-09-14 04:10] LABS: Hematocrit 21.9 % (41.0-53.0); Hemoglobin 7.5 g/dL (13.5-17.5); Mean Corpuscular Hgb Conc. 34.1 g/dL (32.0-36.0); Red Blood Cells 2.37 10^6/uL (4.5-5.90); Red Cell Distribution Width 14.4 % (11.8-14.3); White Blood Cell 10.6 10^3/uL (4.4-10.8)
[2022-09-14 04:12] LABS: Mean Corpuscular Hemoglobin 31.5 pg (28.0-32.0); Mean Corpuscular Volume 92.4 fL (80.0-100.0)
[2022-09-14 04:34] LABS: Potassium 3.9 mmol/L (3.5-5.1)
[2022-09-14 04:50] LABS: BUN/Creatinine Ratio 27.2 (10.0-20.0)
[2022-09-14 04:53] LABS: Basophils % (manual) 0 (0.0-2.0); Blast Cells 0; Eosinophils % (manual) 0 (0-7); Promyelocytes % 0; Reactive Lymphocytes 0
[2022-09-14] MEDS: MIDAZOLAM DRIP 50 mg/50mL 50 ML IV SCH (05:00)
[2022-09-14] MEDS: ALBUMIN 25% 100 ML IV SCH ×3 (05:50→21:15)
[2022-09-14] MEDS: SODIUM CHLOR 0.9% PF (SALINE LOCK) 10ML VIAL/SYR IV SCH ×5 (05:51→21:18)
[2022-09-14] MEDS: ACCU-CHEK COMFORT CURVE STRIP VI SCH ×4 (05:51→22:58)
[2022-09-14] MEDS: InsuLIN REG 1unit/0.01ml Soln (100units/ml) SC SCH ×5 (05:54→23:02)
[2022-09-14] MEDS ORDERED: SODIUM CHL 0.9% 1000 ML BAG XX ONE (07:00)
[2022-09-14] MEDS: hydrALAZINE HCL 20 MG/ML VL IV SCH ×4 (07:45→22:58)
[2022-09-14 08:30] LABS: Band Neutrophils % (manual) 4; Lymphocytes % (manual) 10 (10.0-50.0); Metamyelocytes % 3; Monocytes % (manual) 3 (0-12); Myelocytes % 2; Platelet Estimate Decreased
[2022-09-14] MEDS: FOLIC ACID 1 MG TAB PO SCH (09:14)
[2022-09-14] MEDS: PANTOPRAZOLE 40 MG/10 ML VIAL INJ IV SCH (09:14)
[2022-09-14] MEDS: BUMETANIDE 2.5mg/10ml (0.25 mg/ml) INJ IV SCH ×2 (09:14→21:20)
[2022-09-14] MEDS: PYRIDOXINE HCL 50 MG TAB PO SCH (09:15)
[2022-09-14] MEDS: CYANOCOBALAMIN 500 MCG TAB PO SCH (09:15)
[2022-09-14] MEDS: MEROPENEM 500MG IVPB 50 ML IV SCH ×2 (09:16→21:28)
[2022-09-14 10:02] LABS: Base Excess 5.3 mmol/L (-2.0-2.0)
[2022-09-14] MEDS: NOREPINEPHRINE 8 MG/250ML KIT 250 ML IV SCH (14:30)
[2022-09-14] MEDS ORDERED: VANCOMYCIN 750mg/250ml 250 ML IV ONE (16:00)
[2022-09-14] MEDS ORDERED: EPOETIN ALFA-EPBX 10,000 UNIT/1ML VIAL SC ONE (21:00)
[2022-09-14] MEDS: Nepro With Carb Steady 1 Liter Bottle GT SCH (22:07)
[2022-09-15] VITALS (64 sets, daily range): BP systolic 108–155; BP diastolic 13–64; PULSE 59–65; RESP 16–30; TEMP 97.5–99; O2SAT 95–100
[2022-09-15] MEDS: MIDAZOLAM DRIP 50 mg/50mL 50 ML IV SCH (01:17)
[2022-09-15 04:15] LABS: Mean Corpuscular Hgb Conc. 33.8 g/dL (32.0-36.0); Mean Corpuscular Volume 92.8 fL (80.0-100.0); White Blood Cell 10.3 10^3/uL (4.4-10.8)
[2022-09-15 04:18] LABS: Hemoglobin 7.4 g/dL (13.5-17.5); Mean Corpuscular Hemoglobin 31.4 pg (28.0-32.0); Red Blood Cells 2.37 10^6/uL (4.5-5.90); Red Cell Distribution Width 14.4 % (11.8-14.3)
[2022-09-15 04:24] LABS: Potassium 3.7 mmol/L (3.5-5.1)
[2022-09-15 04:31] LABS: Albumin 3.9 g/dL (3.4-5.0); BUN/Creatinine Ratio 24.7 (10.0-20.0); Bilirubin, Total 0.9 mg/dL (0.2-1.0); Magnesium 2.4 mg/dL (1.6-2.6); Total Protein 7.2 g/dL (6.4-8.2)
[2022-09-15] MEDS: hydrALAZINE HCL 20 MG/ML VL IV SCH ×2 (05:06→11:44)
[2022-09-15] MEDS: SODIUM CHLOR 0.9% PF (SALINE LOCK) 10ML VIAL/SYR IV SCH ×5 (05:06→21:02)
[2022-09-15] MEDS: ACCU-CHEK COMFORT CURVE STRIP VI SCH ×4 (05:06→23:20)
[2022-09-15] MEDS: ALBUMIN 25% 100 ML IV SCH ×3 (05:08→21:01)
[2022-09-15 05:12] LABS: Basophils % (manual) 0 (0.0-2.0); Blast Cells 0; Eosinophils % (manual) 0 (0-7); Myelocytes % 0; Promyelocytes % 0; Reactive Lymphocytes 0
[2022-09-15] MEDS: InsuLIN REG 1unit/0.01ml Soln (100units/ml) SC SCH ×4 (05:13→23:20)
[2022-09-15 06:42] LABS: Base Excess 5.9 mmol/L (-2.0-2.0)
[2022-09-15 08:26] LABS: Band Neutrophils % (manual) 6; Lymphocytes % (manual) 4 (10.0-50.0); Metamyelocytes % 2; Monocytes % (manual) 8 (0-12); Platelet Estimate Decreased; RBC Morphology Normal
[2022-09-15] MEDS: PANTOPRAZOLE 40 MG/10 ML VIAL INJ IV SCH (09:35)
[2022-09-15] MEDS: BUMETANIDE 2.5mg/10ml (0.25 mg/ml) INJ IV SCH ×2 (09:35→21:01)
[2022-09-15] MEDS: MEROPENEM 500MG IVPB 50 ML IV SCH ×2 (09:36→22:10)
[2022-09-15] MEDS: PYRIDOXINE HCL 50 MG TAB PO SCH (09:43)
[2022-09-15] MEDS: CYANOCOBALAMIN 500 MCG TAB PO SCH (09:43)
[2022-09-15] MEDS: FOLIC ACID 1 MG TAB PO SCH (09:43)
[2022-09-15] MEDS: NOREPINEPHRINE 8 MG/250ML KIT 250 ML IV SCH (14:22)
[2022-09-16] VITALS (56 sets, daily range): BP systolic 124–177; BP diastolic 42–74; PULSE 59–64; RESP 14–29; TEMP 97–98.4; O2SAT 93–99
[2022-09-16] MEDS: MIDAZOLAM DRIP 50 mg/50mL 50 ML IV SCH (00:58)
[2022-09-16 03:43] LABS: Basophils # (auto) 0.1 10 ^3/uL (0-0.2); Basophils % (auto) 1.2 % (0.0-2.0); Eosinophils # (auto) 0.1 10 ^3/uL (0-0.8); Eosinophils % (auto) 1.4 % (0.0-7.0); Hematocrit 21.6 % (41.0-53.0); Hemoglobin 7.2 g/dL (13.5-17.5); Lymphocytes # (auto) 0.5 10 ^3/uL (0.4-5.4); Lymphocytes % (auto) 6.6 % (10.0-50.0); Mean Corpuscular Hemoglobin 31.4 pg (28.0-32.0); Mean Corpuscular Hgb Conc. 33.4 g/dL (32.0-36.0); Mean Corpuscular Volume 94.2 fL (80.0-100.0); Monocytes # (auto) 0.6 10 ^3/uL (0-1.3); Monocytes % (auto) 7.9 % (0.0-12.0); Neutrophils # (auto) 6.5 10 ^3/uL (1.6-8.6); Neutrophils % (auto) 82.9 % (37.0-80.0); Nucleated Red Blood Cells % 0.1 %; Red Blood Cells 2.29 10^6/uL (4.5-5.90); Red Cell Distribution Width 14.9 % (11.8-14.3); White Blood Cell 7.9 10^3/uL (4.4-10.8)
[2022-09-16 04:01] LABS: Potassium 4.1 mmol/L (3.5-5.1)
[2022-09-16 04:07] LABS: Albumin 4.3 g/dL (3.4-5.0); BUN/Creatinine Ratio 29.1 (10.0-20.0); Bilirubin, Total 0.8 mg/dL (0.2-1.0)
[2022-09-16] MEDS: ALBUMIN 25% 100 ML IV SCH ×3 (05:21→20:43)
[2022-09-16] MEDS: SODIUM CHLOR 0.9% PF (SALINE LOCK) 10ML VIAL/SYR IV SCH ×5 (05:22→21:53)
[2022-09-16] MEDS: ACCU-CHEK COMFORT CURVE STRIP VI SCH ×3 (05:22→17:33)
[2022-09-16] MEDS: InsuLIN REG 1unit/0.01ml Soln (100units/ml) SC SCH ×3 (05:32→17:38)
[2022-09-16] MEDS: MEROPENEM 500MG IVPB 50 ML IV SCH ×2 (10:36→21:53)
[2022-09-16] MEDS: BUMETANIDE 2.5mg/10ml (0.25 mg/ml) INJ IV SCH ×2 (10:37→21:55)
[2022-09-16] MEDS: PANTOPRAZOLE 40 MG/10 ML VIAL INJ IV SCH (10:37)
[2022-09-16] MEDS: FOLIC ACID 1 MG TAB PO SCH (10:38)
[2022-09-16] MEDS: CYANOCOBALAMIN 500 MCG TAB PO SCH (10:38)
[2022-09-16] MEDS: PYRIDOXINE HCL 50 MG TAB PO SCH (10:44)
[2022-09-16] MEDS: hydrALAZINE HCL 20 MG/ML VL IV PRN (13:56)
[2022-09-16] MEDS: NOREPINEPHRINE 8 MG/250ML KIT 250 ML IV SCH (14:02)
[2022-09-16] MEDS ORDERED: hydrALAZINE HCL 20 MG/ML VL IV ONE (15:30)
[2022-09-16] MEDS ORDERED: METOPROLOL TARTRATE 1MG/1ML-5ML VIAL IV ONE (17:15)
[2022-09-16] MEDS: SODIUM FERR GLUC 62.5MG/5ML 125 MG in SODIUM CHL 0.9% 100 ML IV SCH (19:19)
[2022-09-17] VITALS (105 sets, daily range): BP systolic 92–151; BP diastolic 44–85; PULSE 60–63; RESP 12–24; TEMP 97.3–98.1; O2SAT 77–100
[2022-09-17] MEDS: ACCU-CHEK COMFORT CURVE STRIP VI SCH ×4 (00:31→18:06)
[2022-09-17] MEDS: Nepro With Carb Steady 1 Liter Bottle GT SCH (00:32)
[2022-09-17] MEDS: InsuLIN REG 1unit/0.01ml Soln (100units/ml) SC SCH ×4 (00:42→18:00)
[2022-09-17] MEDS ORDERED: ETOMIDATE (2MG/ML) 20ML VIAL IV ONE ×2 (01:11→01:30)
[2022-09-17] MEDS ORDERED: SUCCINYLCHOLINE CHLORIDE 20 MG/ML 10ML VIAL IV ONE ×2 (01:12→01:30)
[2022-09-17] MEDS: MIDAZOLAM DRIP 50 mg/50mL 50 ML IV SCH (01:25)
[2022-09-17 03:11] LABS: Base Excess 3.4 mmol/L (-2.0-2.0)
[2022-09-17 04:15] LABS: Basophils # (auto) 0.1 10 ^3/uL (0-0.2); Basophils % (auto) 0.6 % (0.0-2.0); Eosinophils # (auto) 0 10 ^3/uL (0-0.8); Eosinophils % (auto) 0.2 % (0.0-7.0); Hematocrit 21.8 % (41.0-53.0); Hemoglobin 7.3 g/dL (13.5-17.5); Lymphocytes # (auto) 0.3 10 ^3/uL (0.4-5.4); Lymphocytes % (auto) 2.6 % (10.0-50.0); Mean Corpuscular Hemoglobin 31.2 pg (28.0-32.0); Mean Corpuscular Hgb Conc. 33.3 g/dL (32.0-36.0); Mean Corpuscular Volume 93.8 fL (80.0-100.0); Monocytes # (auto) 0.4 10 ^3/uL (0-1.3); Neutrophils # (auto) 9.1 10 ^3/uL (1.6-8.6); Neutrophils % (auto) 92.6 % (37.0-80.0); Red Blood Cells 2.33 10^6/uL (4.5-5.90); Red Cell Distribution Width 14.8 % (11.8-14.3); White Blood Cell 9.8 10^3/uL (4.4-10.8)
[2022-09-17 04:30] LABS: BUN/Creatinine Ratio 31.5 (10.0-20.0); Calcium 9.2 mg/dL (8.5-10.1); Potassium 4.3 mmol/L (3.5-5.1)
[2022-09-17] MEDS: SODIUM CHLOR 0.9% PF (SALINE LOCK) 10ML VIAL/SYR IV SCH ×5 (05:43→22:00)
[2022-09-17] MEDS: ALBUMIN 25% 100 ML IV SCH ×3 (05:44→22:00)
[2022-09-17] MEDS: BUMETANIDE 2.5mg/10ml (0.25 mg/ml) INJ IV SCH ×2 (10:05→22:00)
[2022-09-17] MEDS: MEROPENEM 500MG IVPB 50 ML IV SCH (10:05)
[2022-09-17] MEDS: PANTOPRAZOLE 40 MG/10 ML VIAL INJ IV SCH (10:05)
[2022-09-17] MEDS: CYANOCOBALAMIN 500 MCG TAB PO SCH (10:06)
[2022-09-17] MEDS: PYRIDOXINE HCL 50 MG TAB PO SCH (10:06)
[2022-09-17] MEDS: FOLIC ACID 1 MG TAB PO SCH (10:06)
[2022-09-17] MEDS: SODIUM FERR GLUC 62.5MG/5ML 125 MG in SODIUM CHL 0.9% 100 ML IV SCH (13:47)
[2022-09-17] MEDS: NOREPINEPHRINE 8 MG/250ML KIT 250 ML IV SCH (14:30)
[2022-09-17] MEDS: CARVEDILOL 12.5 MG TAB PO SCH ×2 (14:55→22:00)
[2022-09-17 15:06] LABS: Methylmalonic Acid 869 nmol/L (0-378)
[2022-09-17] MEDS ORDERED: fentaNYL Drip 2500mCg/250mlNS 250 ML IV SCH (15:15)
[2022-09-17] MEDS: fentaNYL Drip 2500mCg/250mlNS 250 ML IV SCH (15:56)
[2022-09-18] VITALS (111 sets, daily range): BP systolic 88–151; BP diastolic 43–67; PULSE 18–60; RESP 13–25; TEMP 97.3–98.6; O2SAT 94–100
[2022-09-18] MEDS: ACCU-CHEK COMFORT CURVE STRIP VI SCH ×5 (02:00→22:57)
[2022-09-18] MEDS: InsuLIN REG 1unit/0.01ml Soln (100units/ml) SC SCH ×5 (02:00→22:59)
[2022-09-18 03:56] LABS: Basophils # (auto) 0.1 10 ^3/uL (0-0.2); Eosinophils # (auto) 0.2 10 ^3/uL (0-0.8); Eosinophils % (auto) 3.1 % (0.0-7.0); Red Cell Distribution Width 14.7 % (11.8-14.3); White Blood Cell 6.3 10^3/uL (4.4-10.8)
[2022-09-18 04:00] LABS: Basophils % (auto) 1.1 % (0.0-2.0); Hematocrit 20.6 % (41.0-53.0); Lymphocytes # (auto) 0.5 10 ^3/uL (0.4-5.4); Lymphocytes % (auto) 8.2 % (10.0-50.0); Mean Corpuscular Hemoglobin 30.8 pg (28.0-32.0); Mean Corpuscular Hgb Conc. 32.9 g/dL (32.0-36.0); Mean Corpuscular Volume 93.7 fL (80.0-100.0); Monocytes # (auto) 0.5 10 ^3/uL (0-1.3); Monocytes % (auto) 7.2 % (0.0-12.0); Neutrophils # (auto) 5.1 10 ^3/uL (1.6-8.6); Neutrophils % (auto) 80.4 % (37.0-80.0)
[2022-09-18 04:06] LABS: Calcium 8.9 mg/dL (8.5-10.1); Potassium 3.8 mmol/L (3.5-5.1)
[2022-09-18 04:12] LABS: Hemoglobin 6.8 g/dL (13.5-17.5)
[2022-09-18] MEDS: MIDAZOLAM DRIP 50 mg/50mL 50 ML IV SCH (05:00)
[2022-09-18] MEDS: SODIUM CHLOR 0.9% PF (SALINE LOCK) 10ML VIAL/SYR IV SCH ×5 (06:00→22:47)
[2022-09-18] MEDS: ALBUMIN 25% 100 ML IV SCH ×3 (07:04→22:48)
[2022-09-18 07:09] LABS: Base Excess 4.9 mmol/L (-2.0-2.0)
[2022-09-18] MEDS: FOLIC ACID 1 MG TAB PO SCH (10:00)
[2022-09-18] MEDS: CARVEDILOL 12.5 MG TAB PO SCH ×2 (10:00→22:48)
[2022-09-18] MEDS: CYANOCOBALAMIN 500 MCG TAB PO SCH (10:00)
[2022-09-18] MEDS: PANTOPRAZOLE 40 MG/10 ML VIAL INJ IV SCH (10:00)
[2022-09-18] MEDS: PYRIDOXINE HCL 50 MG TAB PO SCH (10:01)
[2022-09-18] MEDS: SODIUM FERR GLUC 62.5MG/5ML 125 MG in SODIUM CHL 0.9% 100 ML IV SCH (12:45)
[2022-09-18] MEDS: NOREPINEPHRINE 8 MG/250ML KIT 250 ML IV SCH (14:30)
[2022-09-18] MEDS: Nepro With Carb Steady 1 Liter Bottle GT SCH (15:59)
[2022-09-18] MEDS: fentaNYL Drip 2500mCg/250mlNS 250 ML IV SCH (16:10)
[2022-09-18] MEDS: BUMETANIDE 2.5mg/10ml (0.25 mg/ml) INJ IV SCH ×4 (16:46→22:46)
[2022-09-18 18:31] LABS: BUN/Creatinine Ratio 36.6 (10.0-20.0); Calcium 9.2 mg/dL (8.5-10.1); Potassium 4.1 mmol/L (3.5-5.1)
[2022-09-19] VITALS (104 sets, daily range): BP systolic 100–157; BP diastolic 47–68; PULSE 60–66; RESP 11–32; TEMP 97.3–98.4; O2SAT 94–99
[2022-09-19 04:20] LABS: Eosinophils # (auto) 0.3 10 ^3/uL (0-0.8); Hematocrit 24.4 % (41.0-53.0); Hemoglobin 8.3 g/dL (13.5-17.5); Lymphocytes # (auto) 0.7 10 ^3/uL (0.4-5.4); Lymphocytes % (auto) 10.1 % (10.0-50.0); Monocytes # (auto) 0.6 10 ^3/uL (0-1.3); Neutrophils # (auto) 5.2 10 ^3/uL (1.6-8.6); White Blood Cell 6.8 10^3/uL (4.4-10.8)
[2022-09-19 04:23] LABS: Basophils # (auto) 0.1 10 ^3/uL (0-0.2); Basophils % (auto) 1.2 % (0.0-2.0); Eosinophils % (auto) 4.5 % (0.0-7.0); Mean Corpuscular Hemoglobin 31.1 pg (28.0-32.0); Mean Corpuscular Hgb Conc. 33.9 g/dL (32.0-36.0); Mean Corpuscular Volume 91.7 fL (80.0-100.0); Monocytes % (auto) 8.3 % (0.0-12.0); Neutrophils % (auto) 75.9 % (37.0-80.0); Nucleated Red Blood Cells % 0.1 %; Red Blood Cells 2.66 10^6/uL (4.5-5.90); Red Cell Distribution Width 15.6 % (11.8-14.3)
[2022-09-19] MEDS ORDERED: SODIUM CHL 0.9% 1000 ML BAG XX ONE (04:30)
[2022-09-19 04:38] LABS: BUN/Creatinine Ratio 38.1 (10.0-20.0); Calcium 9.4 mg/dL (8.5-10.1); Potassium 3.9 mmol/L (3.5-5.1)
[2022-09-19] MEDS: MIDAZOLAM DRIP 50 mg/50mL 50 ML IV SCH (05:00)
[2022-09-19] MEDS: ACCU-CHEK COMFORT CURVE STRIP VI SCH ×4 (05:59→23:48)
[2022-09-19] MEDS: InsuLIN REG 1unit/0.01ml Soln (100units/ml) SC SCH ×4 (06:00→23:48)
[2022-09-19] MEDS: ALBUMIN 25% 100 ML IV SCH ×3 (06:21→21:29)
[2022-09-19] MEDS: SODIUM CHLOR 0.9% PF (SALINE LOCK) 10ML VIAL/SYR IV SCH ×5 (06:21→21:30)
[2022-09-19 08:01] LABS: Base Excess 2.1 mmol/L (-2.0-2.0)
[2022-09-19] MEDS: PANTOPRAZOLE 40 MG/10 ML VIAL INJ IV SCH (10:33)
[2022-09-19] MEDS: CYANOCOBALAMIN 500 MCG TAB PO SCH (10:34)
[2022-09-19] MEDS: BUMETANIDE 2.5mg/10ml (0.25 mg/ml) INJ IV SCH ×2 (10:34→22:21)
[2022-09-19] MEDS: FOLIC ACID 1 MG TAB PO SCH (10:34)
[2022-09-19] MEDS: CARVEDILOL 12.5 MG TAB PO SCH ×2 (10:34→21:31)
[2022-09-19] MEDS: PYRIDOXINE HCL 50 MG TAB PO SCH (10:35)
[2022-09-19] MEDS: SODIUM FERR GLUC 62.5MG/5ML 125 MG in SODIUM CHL 0.9% 100 ML IV SCH (12:40)
[2022-09-19] MEDS: NOREPINEPHRINE 8 MG/250ML KIT 250 ML IV SCH (14:30)
[2022-09-19] MEDS: fentaNYL Drip 2500mCg/250mlNS 250 ML IV SCH (15:30)
[2022-09-19] MEDS ORDERED: EPOETIN ALFA-EPBX 10,000 UNIT/1ML VIAL SC ONE (21:00)
[2022-09-20] VITALS (112 sets, daily range): BP systolic 112–145; BP diastolic 44–72; PULSE 56–64; RESP 17–32; TEMP 98.1–98.6; O2SAT 93–100
[2022-09-20 04:41] LABS: Eosinophils # (auto) 0.3 10 ^3/uL (0-0.8); Mean Corpuscular Volume 91.8 fL (80.0-100.0); Monocytes # (auto) 0.5 10 ^3/uL (0-1.3); Neutrophils # (auto) 4.7 10 ^3/uL (1.6-8.6); White Blood Cell 6.2 10^3/uL (4.4-10.8)
[2022-09-20 04:43] LABS: Basophils # (auto) 0 10 ^3/uL (0-0.2); Basophils % (auto) 0.6 % (0.0-2.0); Eosinophils % (auto) 5.1 % (0.0-7.0); Hematocrit 23.4 % (41.0-53.0); Lymphocytes # (auto) 0.5 10 ^3/uL (0.4-5.4); Lymphocytes % (auto) 8.9 % (10.0-50.0); Mean Corpuscular Hemoglobin 31.2 pg (28.0-32.0); Monocytes % (auto) 8.3 % (0.0-12.0); Neutrophils % (auto) 77.1 % (37.0-80.0); Red Blood Cells 2.55 10^6/uL (4.5-5.90); Red Cell Distribution Width 15.1 % (11.8-14.3)
[2022-09-20 04:45] LABS: Potassium 3.8 mmol/L (3.5-5.1)
[2022-09-20 04:50] LABS: BUN/Creatinine Ratio 39.2 (10.0-20.0); Calcium 9.5 mg/dL (8.5-10.1)
[2022-09-20] MEDS: MIDAZOLAM DRIP 50 mg/50mL 50 ML IV SCH (05:00)
[2022-09-20] MEDS: InsuLIN REG 1unit/0.01ml Soln (100units/ml) SC SCH ×3 (06:00→18:00)
[2022-09-20] MEDS: ACCU-CHEK COMFORT CURVE STRIP VI SCH ×3 (06:00→18:02)
[2022-09-20] MEDS: SODIUM CHLOR 0.9% PF (SALINE LOCK) 10ML VIAL/SYR IV SCH ×5 (06:24→21:03)
[2022-09-20] MEDS: ALBUMIN 25% 100 ML IV SCH ×3 (06:24→21:03)
[2022-09-20 07:29] LABS: Base Excess 4.2 mmol/L (-2.0-2.0)
[2022-09-20] MEDS: CYANOCOBALAMIN 500 MCG TAB PO SCH (09:57)
[2022-09-20] MEDS: CARVEDILOL 12.5 MG TAB PO SCH ×2 (09:57→21:04)
[2022-09-20] MEDS: PANTOPRAZOLE 40 MG/10 ML VIAL INJ IV SCH (09:57)
[2022-09-20] MEDS: FOLIC ACID 1 MG TAB PO SCH (09:57)
[2022-09-20] MEDS: BUMETANIDE 2.5mg/10ml (0.25 mg/ml) INJ IV SCH ×2 (09:58→21:51)
[2022-09-20] MEDS ORDERED: ENOXAPARIN SOD 100 MG/1 ML SYRINGE SC ONE (10:00)
[2022-09-20] MEDS: PYRIDOXINE HCL 50 MG TAB PO SCH (10:01)
[2022-09-20] MEDS: SODIUM FERR GLUC 62.5MG/5ML 125 MG in SODIUM CHL 0.9% 100 ML IV SCH (12:38)
[2022-09-20] MEDS: NOREPINEPHRINE 8 MG/250ML KIT 250 ML IV SCH (14:30)
[2022-09-20] MEDS: fentaNYL Drip 2500mCg/250mlNS 250 ML IV SCH ×2 (15:30→19:42)
[2022-09-20] MEDS ORDERED: LORazepam 2MG/ML-1ML VIAL IV PRN (21:30)
[2022-09-21] VITALS (111 sets, daily range): BP systolic 77–143; BP diastolic 32–65; PULSE 58–63; RESP 13–30; TEMP 97.7–99.1; O2SAT 93–98
[2022-09-21] MEDS: MIDAZOLAM DRIP 50 mg/50mL 50 ML IV SCH (01:00)
[2022-09-21] MEDS: ALBUMIN 25% 100 ML IV SCH ×3 (05:18→21:14)
[2022-09-21] MEDS: SODIUM CHLOR 0.9% PF (SALINE LOCK) 10ML VIAL/SYR IV SCH ×3 (05:18→22:36)
[2022-09-21 05:29] LABS: Basophils # (auto) 0 10 ^3/uL (0-0.2); Eosinophils # (auto) 0.4 10 ^3/uL (0-0.8); Lymphocytes # (auto) 0.6 10 ^3/uL (0.4-5.4); Monocytes # (auto) 0.6 10 ^3/uL (0-1.3)
[2022-09-21 05:31] LABS: Basophils % (auto) 0.5 % (0.0-2.0); Eosinophils % (auto) 5.6 % (0.0-7.0); Hematocrit 23.8 % (41.0-53.0); Lymphocytes % (auto) 8.7 % (10.0-50.0); Mean Corpuscular Hemoglobin 30.8 pg (28.0-32.0); Mean Corpuscular Hgb Conc. 33.6 g/dL (32.0-36.0); Mean Corpuscular Volume 91.5 fL (80.0-100.0); Monocytes % (auto) 9.5 % (0.0-12.0); Neutrophils % (auto) 75.7 % (37.0-80.0); Red Cell Distribution Width 14.8 % (11.8-14.3); White Blood Cell 6.6 10^3/uL (4.4-10.8)
[2022-09-21 05:39] LABS: Calcium 9.9 mg/dL (8.5-10.1); Potassium 3.8 mmol/L (3.5-5.1)
[2022-09-21 05:42] LABS: BUN/Creatinine Ratio 42.8 (10.0-20.0)
[2022-09-21] MEDS: InsuLIN REG 1unit/0.01ml Soln (100units/ml) SC SCH ×5 (06:00→23:50)
[2022-09-21] MEDS: ACCU-CHEK COMFORT CURVE STRIP VI SCH ×5 (06:15→23:50)
[2022-09-21 08:23] LABS: Base Excess 2.5 mmol/L (-2.0-2.0)
[2022-09-21] MEDS: PANTOPRAZOLE 40 MG/10 ML VIAL INJ IV SCH (09:49)
[2022-09-21] MEDS: BUMETANIDE 2.5mg/10ml (0.25 mg/ml) INJ IV SCH ×2 (09:50→22:34)
[2022-09-21] MEDS: FOLIC ACID 1 MG TAB PO SCH (09:50)
[2022-09-21] MEDS: CYANOCOBALAMIN 500 MCG TAB PO SCH (09:50)
[2022-09-21] MEDS: PYRIDOXINE HCL 50 MG TAB PO SCH (09:51)
[2022-09-21] MEDS: CARVEDILOL 12.5 MG TAB PO SCH ×2 (09:52→22:00)
[2022-09-21] MEDS: ENOXAPARIN SOD 100 MG/1 ML SYRINGE SC SCH (09:52)
[2022-09-21] MEDS: NOREPINEPHRINE 8 MG/250ML KIT 250 ML IV SCH (09:53)
[2022-09-21] MEDS: SODIUM FERR GLUC 62.5MG/5ML 125 MG in SODIUM CHL 0.9% 100 ML IV SCH (14:14)
[2022-09-21] MEDS: Nepro With Carb Steady 1 Liter Bottle GT SCH (14:14)
[2022-09-21] MEDS ORDERED: EPOETIN ALFA-EPBX 10,000 UNIT/1ML VIAL IV ONE (21:00)
[2022-09-21] MEDS: fentaNYL Drip 2500mCg/250mlNS 250 ML IV SCH (22:32)
[2022-09-22] VITALS (101 sets, daily range): BP systolic 70–120; BP diastolic 28–70; PULSE 60–65; RESP 12–31; TEMP 98.4–99.3; O2SAT 92–98
[2022-09-22] MEDS: MIDAZOLAM DRIP 50 mg/50mL 50 ML IV SCH (05:00)
[2022-09-22] MEDS: ALBUMIN 25% 100 ML IV SCH ×3 (05:49→21:34)
[2022-09-22] MEDS: ACCU-CHEK COMFORT CURVE STRIP VI SCH ×3 (05:50→17:53)
[2022-09-22] MEDS: InsuLIN REG 1unit/0.01ml Soln (100units/ml) SC SCH ×3 (05:51→17:53)
[2022-09-22 07:06] LABS: Base Excess 2.7 mmol/L (-2.0-2.0)
[2022-09-22] MEDS: FOLIC ACID 1 MG TAB PO SCH (09:56)
[2022-09-22] MEDS: ENOXAPARIN SOD 100 MG/1 ML SYRINGE SC SCH (09:56)
[2022-09-22] MEDS: CYANOCOBALAMIN 500 MCG TAB PO SCH (09:56)
[2022-09-22] MEDS: BUMETANIDE 2.5mg/10ml (0.25 mg/ml) INJ IV SCH ×2 (09:56→22:40)
[2022-09-22] MEDS: SODIUM CHLOR 0.9% PF (SALINE LOCK) 10ML VIAL/SYR IV SCH ×2 (09:56→22:40)
[2022-09-22] MEDS: CARVEDILOL 12.5 MG TAB PO SCH ×2 (09:56→22:00)
[2022-09-22] MEDS: PANTOPRAZOLE 40 MG/10 ML VIAL INJ IV SCH (09:56)
[2022-09-22] MEDS: NOREPINEPHRINE 8 MG/250ML KIT 250 ML IV SCH (09:57)
[2022-09-22] MEDS: Nepro With Carb Steady 1 Liter Bottle GT SCH (09:57)
[2022-09-22] MEDS: PYRIDOXINE HCL 50 MG TAB PO SCH (09:57)
[2022-09-22] MEDS: SODIUM FERR GLUC 62.5MG/5ML 125 MG in SODIUM CHL 0.9% 100 ML IV SCH (12:33)
[2022-09-22] MEDS: fentaNYL Drip 2500mCg/250mlNS 250 ML IV SCH (14:34)
[2022-09-23] VITALS (72 sets, daily range): BP systolic 88–128; BP diastolic 38–62; PULSE 60; RESP 18–26; TEMP 98.4–99.3; O2SAT 92–98
[2022-09-23] MEDS: ACCU-CHEK COMFORT CURVE STRIP VI SCH ×4 (00:19→17:34)
[2022-09-23 04:42] LABS: Eosinophils # (auto) 0.4 10 ^3/uL (0-0.8); Hemoglobin 7.6 g/dL (13.5-17.5); Neutrophils # (auto) 3.6 10 ^3/uL (1.6-8.6); White Blood Cell 5.2 10^3/uL (4.4-10.8)
[2022-09-23 04:45] LABS: Basophils # (auto) 0.1 10 ^3/uL (0-0.2); Basophils % (auto) 1.2 % (0.0-2.0); Hematocrit 23.1 % (41.0-53.0); Lymphocytes # (auto) 0.6 10 ^3/uL (0.4-5.4); Lymphocytes % (auto) 11.3 % (10.0-50.0); Mean Corpuscular Hemoglobin 30.7 pg (28.0-32.0); Mean Corpuscular Volume 93.2 fL (80.0-100.0); Monocytes # (auto) 0.6 10 ^3/uL (0-1.3); Monocytes % (auto) 11.4 % (0.0-12.0); Neutrophils % (auto) 69.1 % (37.0-80.0); Nucleated Red Blood Cells % 0.1 %; Red Blood Cells 2.48 10^6/uL (4.5-5.90)
[2022-09-23 04:52] LABS: BUN/Creatinine Ratio 46.4 (10.0-20.0); Calcium 9.7 mg/dL (8.5-10.1); Potassium 3.7 mmol/L (3.5-5.1)
[2022-09-23] MEDS: MIDAZOLAM DRIP 50 mg/50mL 50 ML IV SCH (05:00)
[2022-09-23] MEDS: fentaNYL Drip 2500mCg/250mlNS 250 ML IV SCH ×2 (05:31→17:30)
[2022-09-23] MEDS: ALBUMIN 25% 100 ML IV SCH ×3 (05:31→22:18)
[2022-09-23] MEDS: InsuLIN REG 1unit/0.01ml Soln (100units/ml) SC SCH ×4 (06:00→17:36)
[2022-09-23 08:18] LABS: Base Excess 0.2 mmol/L (-2.0-2.0)
[2022-09-23] MEDS: CARVEDILOL 12.5 MG TAB PO SCH ×2 (10:00→22:00)
[2022-09-23] MEDS: PANTOPRAZOLE 40 MG/10 ML VIAL INJ IV SCH (10:17)
[2022-09-23] MEDS: CYANOCOBALAMIN 500 MCG TAB PO SCH (10:17)
[2022-09-23] MEDS: BUMETANIDE 2.5mg/10ml (0.25 mg/ml) INJ IV SCH ×2 (10:17→22:19)
[2022-09-23] MEDS: PYRIDOXINE HCL 50 MG TAB PO SCH (10:17)
[2022-09-23] MEDS: FOLIC ACID 1 MG TAB PO SCH (10:17)
[2022-09-23] MEDS: SODIUM CHLOR 0.9% PF (SALINE LOCK) 10ML VIAL/SYR IV SCH ×2 (10:18→22:20)
[2022-09-23] MEDS: ENOXAPARIN SOD 100 MG/1 ML SYRINGE SC SCH (10:18)
[2022-09-23] MEDS: NOREPINEPHRINE 8 MG/250ML KIT 250 ML IV SCH (14:30)
[2022-09-23] MEDS ORDERED: METOCLOPRAMIDE HCL 5MG/ml INJ 2ml VIAL IV ONE (15:30)
[2022-09-23 18:45] LABS: Urine Bacteria MOD /hpf (None Seen); Urine Blood 3+ /uL (Negative); Urine Budding Yeast MANY /hpf (None Seen); Urine Clarity HAZY (Clear); Urine Color Yellow (Yellow); Urine Protein, UAD 2+ (Negative); Urine Specific Gravity 1.012 (1.001-1.035); Urine Urobilinogen Normal (Negative); Urine WBC 109 /hpf (0 - 3); Urine pH 5.5 (5.0-8.0)
[2022-09-23] MEDS ORDERED: ALBUMIN 25% 100 ML IV PRN (20:00)
[2022-09-23] MEDS: METOCLOPRAMIDE HCL 5MG/ml INJ 2ml VIAL IV SCH (22:19)
[2022-09-24] VITALS (108 sets, daily range): BP systolic 94–173; BP diastolic 32–83; PULSE 6–80; RESP 13–35; TEMP 97.3–99.3; O2SAT 89–100
[2022-09-24 00:56] LABS: Urine Bacteria FEW /hpf (None Seen); Urine Blood 3+ /uL (Negative); Urine Budding Yeast FEW /hpf (None Seen); Urine Clarity HAZY (Clear); Urine Color Yellow (Yellow); Urine Hyaline Cast FEW /lpf (0 - 2); Urine Protein, UAD 1+ (Negative); Urine Specific Gravity 1.013 (1.001-1.035); Urine Urobilinogen Normal (Negative); Urine WBC 95 /hpf (0 - 3); Urine WBC Clumps PRESENT /hpf (None Seen)
[2022-09-24 04:56] LABS: Basophils # (auto) 0 10 ^3/uL (0-0.2); Basophils % (auto) 0.8 % (0.0-2.0); Eosinophils # (auto) 0.3 10 ^3/uL (0-0.8); Eosinophils % (auto) 5.5 % (0.0-7.0); Hematocrit 24.8 % (41.0-53.0); Hemoglobin 8.1 g/dL (13.5-17.5); Lymphocytes # (auto) 0.6 10 ^3/uL (0.4-5.4); Lymphocytes % (auto) 12.3 % (10.0-50.0); Mean Corpuscular Hgb Conc. 32.9 g/dL (32.0-36.0); Mean Corpuscular Volume 94.5 fL (80.0-100.0); Monocytes # (auto) 0.6 10 ^3/uL (0-1.3); Neutrophils # (auto) 3.5 10 ^3/uL (1.6-8.6); Neutrophils % (auto) 69.4 % (37.0-80.0); Nucleated Red Blood Cells % 0.2 %; Red Blood Cells 2.62 10^6/uL (4.5-5.90); Red Cell Distribution Width 15.4 % (11.8-14.3); White Blood Cell 5.1 10^3/uL (4.4-10.8)
[2022-09-24] MEDS: MIDAZOLAM DRIP 50 mg/50mL 50 ML IV SCH (05:00)
[2022-09-24 05:31] LABS: Calcium 9.6 mg/dL (8.5-10.1); Potassium 3.9 mmol/L (3.5-5.1)
[2022-09-24 05:33] LABS: BUN/Creatinine Ratio 48.1 (10.0-20.0)
[2022-09-24] MEDS: InsuLIN REG 1unit/0.01ml Soln (100units/ml) SC SCH ×5 (06:00→23:48)
[2022-09-24] MEDS: ACCU-CHEK COMFORT CURVE STRIP VI SCH ×5 (06:30→23:49)
[2022-09-24] MEDS ORDERED: SODIUM CHL 0.9% 1000 ML BAG XX ONE (07:00)
[2022-09-24] MEDS: fentaNYL Drip 2500mCg/250mlNS 250 ML IV SCH (07:04)
[2022-09-24] MEDS: ALBUMIN 25% 100 ML IV SCH ×3 (09:20→22:28)
[2022-09-24] MEDS: METOCLOPRAMIDE HCL 5MG/ml INJ 2ml VIAL IV SCH ×3 (09:20→22:29)
[2022-09-24] MEDS: FOLIC ACID 1 MG TAB PO SCH (09:36)
[2022-09-24] MEDS: PANTOPRAZOLE 40 MG/10 ML VIAL INJ IV SCH (09:36)
[2022-09-24] MEDS: CYANOCOBALAMIN 500 MCG TAB PO SCH (09:36)
[2022-09-24] MEDS: CARVEDILOL 12.5 MG TAB PO SCH ×2 (09:37→22:29)
[2022-09-24] MEDS: PYRIDOXINE HCL 50 MG TAB PO SCH (09:37)
[2022-09-24] MEDS: ENOXAPARIN SOD 100 MG/1 ML SYRINGE SC SCH (09:38)
[2022-09-24] MEDS: SODIUM CHLOR 0.9% PF (SALINE LOCK) 10ML VIAL/SYR IV SCH ×2 (10:00→22:29)
[2022-09-24] MEDS: BUMETANIDE 2.5mg/10ml (0.25 mg/ml) INJ IV SCH ×2 (11:15→23:10)
[2022-09-24 11:31] LABS: INR 1.13 (0.9-1.15); Partial Thromboplastin Time 40.6 SEC (24.5-34.5); Prothrombin Time 11.8 sec (9.3-11.8)
[2022-09-24] MEDS: NOREPINEPHRINE 8 MG/250ML KIT 250 ML IV SCH (14:30)
[2022-09-24] MEDS: Nepro With Carb Steady 1 Liter Bottle GT SCH (16:02)
[2022-09-25] VITALS (101 sets, daily range): BP systolic 90–165; BP diastolic 38–73; PULSE 59–121; RESP 17–61; TEMP 97.7–99.1; O2SAT 91–100
[2022-09-25] MEDS: fentaNYL Drip 2500mCg/250mlNS 250 ML IV SCH (00:14)
[2022-09-25 04:29] LABS: Eosinophils # (auto) 0.2 10 ^3/uL (0-0.8); Lymphocytes # (auto) 0.5 10 ^3/uL (0.4-5.4); Neutrophils # (auto) 2.5 10 ^3/uL (1.6-8.6); White Blood Cell 3.9 10^3/uL (4.4-10.8)
[2022-09-25 04:32] LABS: Basophils # (auto) 0 10 ^3/uL (0-0.2); Basophils % (auto) 1.3 % (0.0-2.0); Eosinophils % (auto) 5.6 % (0.0-7.0); Hemoglobin 7.6 g/dL (13.5-17.5); Lymphocytes % (auto) 12.8 % (10.0-50.0); Mean Corpuscular Hemoglobin 31.1 pg (28.0-32.0); Mean Corpuscular Hgb Conc. 33.2 g/dL (32.0-36.0); Mean Corpuscular Volume 93.7 fL (80.0-100.0); Monocytes # (auto) 0.6 10 ^3/uL (0-1.3); Monocytes % (auto) 15.6 % (0.0-12.0); Neutrophils % (auto) 64.7 % (37.0-80.0); Nucleated Red Blood Cells % 0.2 %; Red Blood Cells 2.46 10^6/uL (4.5-5.90); Red Cell Distribution Width 15.8 % (11.8-14.3)
[2022-09-25 04:49] LABS: Potassium 3.6 mmol/L (3.5-5.1)
[2022-09-25 04:55] LABS: BUN/Creatinine Ratio 37.1 (10.0-20.0); Calcium 9.5 mg/dL (8.5-10.1)
[2022-09-25] MEDS: MIDAZOLAM DRIP 50 mg/50mL 50 ML IV SCH (05:00)
[2022-09-25] MEDS: ACCU-CHEK COMFORT CURVE STRIP VI SCH ×4 (05:34→23:33)
[2022-09-25] MEDS: InsuLIN REG 1unit/0.01ml Soln (100units/ml) SC SCH ×4 (05:34→23:33)
[2022-09-25] MEDS: ALBUMIN 25% 100 ML IV SCH ×3 (05:35→22:13)
[2022-09-25] MEDS: METOCLOPRAMIDE HCL 5MG/ml INJ 2ml VIAL IV SCH ×3 (05:36→22:12)
[2022-09-25] MEDS ORDERED: LIDOCAINE W/ EPINEPHRINE 1% 20ML VIAL ONE (07:05)
[2022-09-25 07:44] LABS: Base Excess -0.2 mmol/L (-2.0-2.0)
[2022-09-25] MEDS ORDERED: KETAMINE HCL 10 ML ONE (08:15)
[2022-09-25] MEDS ORDERED: HYDROmorphone HCL 2 MG/ML VL/or syr ONE (08:15)
[2022-09-25] MEDS ORDERED: MIDAZOLAM HCL 2MG/2ML 2ml VIAL (1mg/ml) ONE (08:16)
[2022-09-25] MEDS ORDERED: PHENYLEPHRINE HCL 10 MG/ML VL ONE (08:16)
[2022-09-25] MEDS ORDERED: ROCURONIUM 10MG/ML 10ML VIAL IV ONE (08:16)
[2022-09-25] MEDS ORDERED: DexAMETHasone SOD PHOS 10MG/1ML VIAL INJ IV ONE (08:30)
[2022-09-25] MEDS ORDERED: ceFAZolin 1GM VL ONE (08:36)
[2022-09-25] MEDS: BUMETANIDE 2.5mg/10ml (0.25 mg/ml) INJ IV SCH (10:53)
[2022-09-25] MEDS: PYRIDOXINE HCL 50 MG TAB PO SCH (10:53)
[2022-09-25] MEDS: CYANOCOBALAMIN 500 MCG TAB PO SCH (10:53)
[2022-09-25] MEDS: PANTOPRAZOLE 40 MG/10 ML VIAL INJ IV SCH (10:53)
[2022-09-25] MEDS: SODIUM CHLOR 0.9% PF (SALINE LOCK) 10ML VIAL/SYR IV SCH ×2 (10:54→22:14)
[2022-09-25] MEDS: ENOXAPARIN SOD 100 MG/1 ML SYRINGE SC SCH (10:54)
[2022-09-25] MEDS: FOLIC ACID 1 MG TAB PO SCH (10:54)
[2022-09-25] MEDS: CARVEDILOL 12.5 MG TAB PO SCH ×2 (11:13→22:13)
[2022-09-25] MEDS: NOREPINEPHRINE 8 MG/250ML KIT 250 ML IV SCH (14:30)
[2022-09-25] MEDS: SODIUM FERR GLUC 62.5MG/5ML 125 MG in SODIUM CHL 0.9% 100 ML IV SCH (16:07)
[2022-09-25] MEDS ORDERED: SODIUM CHL 0.9% 1000 ML BAG XX ONE (17:45)
[2022-09-25] MEDS ORDERED: EPOETIN ALFA-EPBX 10,000 UNIT/1ML VIAL SC ONE (21:00)
[2022-09-26] VITALS (104 sets, daily range): BP systolic 97–154; BP diastolic 39–70; PULSE 59–61; RESP 7–40; TEMP 98.2–99.7; O2SAT 93–100
[2022-09-26] MEDS: MIDAZOLAM DRIP 50 mg/50mL 50 ML IV SCH (01:21)
[2022-09-26 04:13] LABS: Basophils # (auto) 0 10 ^3/uL (0-0.2); Basophils % (auto) 0.4 % (0.0-2.0); Eosinophils # (auto) 0 10 ^3/uL (0-0.8); Eosinophils % (auto) 0.2 % (0.0-7.0); Hematocrit 23.2 % (41.0-53.0); Hemoglobin 7.7 g/dL (13.5-17.5); Lymphocytes # (auto) 0.4 10 ^3/uL (0.4-5.4); Lymphocytes % (auto) 8.7 % (10.0-50.0); Mean Corpuscular Hemoglobin 31.4 pg (28.0-32.0); Mean Corpuscular Hgb Conc. 33.3 g/dL (32.0-36.0); Mean Corpuscular Volume 94.1 fL (80.0-100.0); Monocytes # (auto) 0.7 10 ^3/uL (0-1.3); Monocytes % (auto) 14.7 % (0.0-12.0); Neutrophils # (auto) 3.6 10 ^3/uL (1.6-8.6); Nucleated Red Blood Cells % 0.2 %; Red Blood Cells 2.47 10^6/uL (4.5-5.90); Red Cell Distribution Width 16.2 % (11.8-14.3); White Blood Cell 4.8 10^3/uL (4.4-10.8)
[2022-09-26 04:29] LABS: Calcium 9.8 mg/dL (8.5-10.1); Potassium 3.4 mmol/L (3.5-5.1)
[2022-09-26 04:30] LABS: % Iron Saturation 28.7 % (20-55)
[2022-09-26 04:31] LABS: BUN/Creatinine Ratio 34.9 (10.0-20.0)
[2022-09-26] MEDS: InsuLIN REG 1unit/0.01ml Soln (100units/ml) SC SCH ×3 (05:31→17:54)
[2022-09-26] MEDS: ACCU-CHEK COMFORT CURVE STRIP VI SCH ×3 (05:31→17:54)
[2022-09-26] MEDS: ALBUMIN 25% 100 ML IV SCH (05:32)
[2022-09-26] MEDS: METOCLOPRAMIDE HCL 5MG/ml INJ 2ml VIAL IV SCH ×3 (05:33→22:31)
[2022-09-26] MEDS ORDERED: SODIUM CHL 0.9% 1000 ML BAG XX ONE (07:00)
[2022-09-26 07:41] LABS: Base Excess 2.3 mmol/L (-2.0-2.0)
[2022-09-26] MEDS: ENOXAPARIN SOD 100 MG/1 ML SYRINGE SC SCH (09:57)
[2022-09-26] MEDS: PANTOPRAZOLE 40 MG/10 ML VIAL INJ IV SCH (09:57)
[2022-09-26] MEDS: FOLIC ACID 1 MG TAB PO SCH (09:58)
[2022-09-26] MEDS: CARVEDILOL 12.5 MG TAB PO SCH ×2 (09:59→22:32)
[2022-09-26] MEDS: CYANOCOBALAMIN 500 MCG TAB PO SCH (09:59)
[2022-09-26] MEDS: BUMETANIDE 2.5mg/10ml (0.25 mg/ml) INJ IV SCH (10:01)
[2022-09-26] MEDS: SODIUM CHLOR 0.9% PF (SALINE LOCK) 10ML VIAL/SYR IV SCH ×2 (10:13→22:00)
[2022-09-26] MEDS: PYRIDOXINE HCL 50 MG TAB PO SCH (10:13)
[2022-09-26] MEDS: fentaNYL Drip 2500mCg/250mlNS 250 ML IV SCH ×2 (13:26→23:50)
[2022-09-26] MEDS: SODIUM FERR GLUC 62.5MG/5ML 125 MG in SODIUM CHL 0.9% 100 ML IV SCH (13:26)
[2022-09-26] MEDS: NOREPINEPHRINE 8 MG/250ML KIT 250 ML IV SCH (14:30)
[2022-09-26] MEDS: Nepro With Carb Steady 1 Liter Bottle GT SCH (20:00)
[2022-09-26] MEDS ORDERED: EPOETIN ALFA-EPBX 10,000 UNIT/1ML VIAL SC ONE (21:00)
[2022-09-27] VITALS (108 sets, daily range): BP systolic 81–145; BP diastolic 29–62; PULSE 59–68; RESP 12–42; TEMP 99.1–100; O2SAT 93–99
[2022-09-27] MEDS: ACCU-CHEK COMFORT CURVE STRIP VI SCH ×4 (00:15→18:35)
[2022-09-27 04:14] LABS: Basophils # (auto) 0 10 ^3/uL (0-0.2); Eosinophils # (auto) 0.1 10 ^3/uL (0-0.8); Hemoglobin 7.9 g/dL (13.5-17.5); Lymphocytes # (auto) 0.6 10 ^3/uL (0.4-5.4); Monocytes # (auto) 0.8 10 ^3/uL (0-1.3); Monocytes % (auto) 13.8 % (0.0-12.0); Neutrophils # (auto) 4.2 10 ^3/uL (1.6-8.6)
[2022-09-27 04:17] LABS: Basophils % (auto) 0.8 % (0.0-2.0); Eosinophils % (auto) 1.1 % (0.0-7.0); Hematocrit 23.7 % (41.0-53.0); Lymphocytes % (auto) 9.8 % (10.0-50.0); Mean Corpuscular Hemoglobin 31.1 pg (28.0-32.0); Mean Corpuscular Hgb Conc. 33.1 g/dL (32.0-36.0); Mean Corpuscular Volume 93.9 fL (80.0-100.0); Neutrophils % (auto) 74.5 % (37.0-80.0); Red Blood Cells 2.53 10^6/uL (4.5-5.90); Red Cell Distribution Width 16.6 % (11.8-14.3); White Blood Cell 5.6 10^3/uL (4.4-10.8)
[2022-09-27 04:29] LABS: BUN/Creatinine Ratio 38.6 (10.0-20.0); Calcium 9.5 mg/dL (8.5-10.1)
[2022-09-27] MEDS ORDERED: POTASSIUM CHL 20MEQ/100ML 200 ML IV ONE (05:35)
[2022-09-27] MEDS: POTASSIUM CHL 20MEQ/100ML 100 ML IV SCH ×2 (05:45→07:30)
[2022-09-27] MEDS: METOCLOPRAMIDE HCL 5MG/ml INJ 2ml VIAL IV SCH ×2 (05:51→14:30)
[2022-09-27] MEDS: InsuLIN REG 1unit/0.01ml Soln (100units/ml) SC SCH ×4 (05:56→18:37)
[2022-09-27] MEDS ORDERED: CATHFLO ACTIVASE (ALTEPLASE) 2 MG VIAL IV ONE (06:45)
[2022-09-27] MEDS ORDERED: SODIUM CHL 0.9% 1000 ML BAG XX ONE (07:00)
[2022-09-27] MEDS: MIDAZOLAM DRIP 50 mg/50mL 50 ML IV SCH (08:13)
[2022-09-27 09:03] LABS: Base Excess 2.3 mmol/L (-2.0-2.0)
[2022-09-27] MEDS: PANTOPRAZOLE 40 MG/10 ML VIAL INJ IV SCH (10:33)
[2022-09-27] MEDS: BUMETANIDE 2.5mg/10ml (0.25 mg/ml) INJ IV SCH (10:35)
[2022-09-27] MEDS: FOLIC ACID 1 MG TAB PO SCH (10:36)
[2022-09-27] MEDS: CARVEDILOL 12.5 MG TAB PO SCH ×2 (10:37→21:33)
[2022-09-27] MEDS: CYANOCOBALAMIN 500 MCG TAB PO SCH (10:37)
[2022-09-27] MEDS: ENOXAPARIN SOD 100 MG/1 ML SYRINGE SC SCH (10:38)
[2022-09-27] MEDS: PYRIDOXINE HCL 50 MG TAB PO SCH (10:40)
[2022-09-27] MEDS: SODIUM CHLOR 0.9% PF (SALINE LOCK) 10ML VIAL/SYR IV SCH ×2 (10:42→21:33)
[2022-09-27] MEDS: SODIUM FERR GLUC 62.5MG/5ML 125 MG in SODIUM CHL 0.9% 100 ML IV SCH (12:44)
[2022-09-27] MEDS: fentaNYL Drip 2500mCg/250mlNS 250 ML IV SCH (12:50)
[2022-09-27] MEDS: NOREPINEPHRINE 8 MG/250ML KIT 250 ML IV SCH (14:30)
[2022-09-27] MEDS ORDERED: BISACODYL 10 MG RECT SUPP PR ONE (18:30)
[2022-09-27] MEDS: MEROPENEM 1GM IVPB 100 ML IV SCH (18:55)
[2022-09-27] MEDS: LINEZOLID 600MG/300ML 300 ML IV SCH (20:17)
[2022-09-27] MEDS ORDERED: EPOETIN ALFA-EPBX 10,000 UNIT/1ML VIAL SC ONE (21:00)
[2022-09-27] MEDS: LACTULOSE 20Gm/30ML SOLN PO SCH (21:33)
[2022-09-28] VITALS (114 sets, daily range): BP systolic 82–136; BP diastolic 30–73; PULSE 60–90; RESP 15–40; TEMP 98.2–99.9; O2SAT 86–100
[2022-09-28 04:47] LABS: Calcium 9.4 mg/dL (8.5-10.1); Potassium 3.5 mmol/L (3.5-5.1)
[2022-09-28 04:54] LABS: Eosinophils # (auto) 0.1 10 ^3/uL (0-0.8)
[2022-09-28 04:55] LABS: Basophils # (auto) 0.1 10 ^3/uL (0-0.2); Basophils % (auto) 0.7 % (0.0-2.0); Eosinophils % (auto) 0.7 % (0.0-7.0); Hematocrit 23.6 % (41.0-53.0); Hemoglobin 7.8 g/dL (13.5-17.5); Lymphocytes # (auto) 0.5 10 ^3/uL (0.4-5.4); Lymphocytes % (auto) 7.3 % (10.0-50.0); Mean Corpuscular Hemoglobin 31.3 pg (28.0-32.0); Mean Corpuscular Hgb Conc. 32.8 g/dL (32.0-36.0); Mean Corpuscular Volume 95.2 fL (80.0-100.0); Neutrophils # (auto) 5.8 10 ^3/uL (1.6-8.6); Neutrophils % (auto) 78.3 % (37.0-80.0); Red Blood Cells 2.48 10^6/uL (4.5-5.90); Red Cell Distribution Width 16.8 % (11.8-14.3); White Blood Cell 7.4 10^3/uL (4.4-10.8)
[2022-09-28] MEDS: MIDAZOLAM DRIP 50 mg/50mL 50 ML IV SCH (05:00)
[2022-09-28] MEDS: LACTULOSE 20Gm/30ML SOLN PO SCH ×3 (05:42→22:07)
[2022-09-28] MEDS: ACCU-CHEK COMFORT CURVE STRIP VI SCH ×4 (05:42→17:32)
[2022-09-28] MEDS: InsuLIN REG 1unit/0.01ml Soln (100units/ml) SC SCH ×4 (05:46→17:34)
[2022-09-28] MEDS: MEROPENEM 1GM IVPB 100 ML IV SCH ×2 (06:25→18:35)
[2022-09-28 06:35] LABS: Base Excess 1.1 mmol/L (-2.0-2.0)
[2022-09-28] MEDS ORDERED: SODIUM CHL 0.9% 1000 ML BAG XX ONE (07:00)
[2022-09-28] MEDS: LINEZOLID 600MG/300ML 300 ML IV SCH ×2 (08:07→20:05)
[2022-09-28] MEDS: Nepro With Carb Steady 1 Liter Bottle GT SCH (09:09)
[2022-09-28] MEDS: SODIUM FERR GLUC 62.5MG/5ML 125 MG in SODIUM CHL 0.9% 100 ML IV SCH (12:37)
[2022-09-28] MEDS: fentaNYL Drip 2500mCg/250mlNS 250 ML IV SCH ×2 (12:49→22:02)
[2022-09-28] MEDS: ENOXAPARIN SOD 100 MG/1 ML SYRINGE SC SCH (13:53)
[2022-09-28] MEDS: PANTOPRAZOLE 40 MG/10 ML VIAL INJ IV SCH (13:53)
[2022-09-28] MEDS: BUMETANIDE 2.5mg/10ml (0.25 mg/ml) INJ IV SCH (13:53)
[2022-09-28] MEDS: CARVEDILOL 12.5 MG TAB PO SCH ×2 (13:54→22:08)
[2022-09-28] MEDS: CYANOCOBALAMIN 500 MCG TAB PO SCH (13:54)
[2022-09-28] MEDS: FOLIC ACID 1 MG TAB PO SCH (13:54)
[2022-09-28] MEDS: PYRIDOXINE HCL 50 MG TAB PO SCH (13:54)
[2022-09-28] MEDS: SODIUM CHLOR 0.9% PF (SALINE LOCK) 10ML VIAL/SYR IV SCH ×2 (13:56→22:02)
[2022-09-28] MEDS: NOREPINEPHRINE 8 MG/250ML KIT 250 ML IV SCH (14:30)
[2022-09-29] VITALS (111 sets, daily range): BP systolic 106–156; BP diastolic 10–83; PULSE 60–86; RESP 15–42; TEMP 98.4–99.7; O2SAT 91–100
[2022-09-29 04:10] LABS: Eosinophils # (auto) 0.1 10 ^3/uL (0-0.8); Lymphocytes # (auto) 0.6 10 ^3/uL (0.4-5.4); Mean Corpuscular Volume 95.1 fL (80.0-100.0); Nucleated Red Blood Cells % 0.1 %
[2022-09-29 04:13] LABS: Basophils # (auto) 0.1 10 ^3/uL (0-0.2); Basophils % (auto) 0.7 % (0.0-2.0); Eosinophils % (auto) 1.1 % (0.0-7.0); Hematocrit 23.1 % (41.0-53.0); Hemoglobin 7.6 g/dL (13.5-17.5); Lymphocytes % (auto) 8.3 % (10.0-50.0); Mean Corpuscular Hemoglobin 31.4 pg (28.0-32.0); Monocytes # (auto) 1.1 10 ^3/uL (0-1.3); Monocytes % (auto) 14.7 % (0.0-12.0); Neutrophils # (auto) 5.7 10 ^3/uL (1.6-8.6); Neutrophils % (auto) 75.2 % (37.0-80.0); Red Blood Cells 2.43 10^6/uL (4.5-5.90); Red Cell Distribution Width 17.1 % (11.8-14.3); White Blood Cell 7.5 10^3/uL (4.4-10.8)
[2022-09-29 04:17] LABS: Calcium 8.9 mg/dL (8.5-10.1)
[2022-09-29 04:19] LABS: BUN/Creatinine Ratio 31.7 (10.0-20.0)
[2022-09-29] MEDS: MIDAZOLAM DRIP 50 mg/50mL 50 ML IV SCH (05:00)
[2022-09-29] MEDS: LACTULOSE 20Gm/30ML SOLN PO SCH (06:00)
[2022-09-29] MEDS: InsuLIN REG 1unit/0.01ml Soln (100units/ml) SC SCH ×4 (06:00→17:58)
[2022-09-29] MEDS: MEROPENEM 1GM IVPB 100 ML IV SCH ×2 (06:24→18:31)
[2022-09-29] MEDS: ACCU-CHEK COMFORT CURVE STRIP VI SCH ×4 (06:29→17:53)
[2022-09-29 07:43] LABS: Base Excess 1.9 mmol/L (-2.0-2.0)
[2022-09-29] MEDS: LINEZOLID 600MG/300ML 300 ML IV SCH ×2 (07:46→20:12)
[2022-09-29] MEDS: PANTOPRAZOLE 40 MG/10 ML VIAL INJ IV SCH (10:28)
[2022-09-29] MEDS: BUMETANIDE 2.5mg/10ml (0.25 mg/ml) INJ IV SCH (10:28)
[2022-09-29] MEDS: CYANOCOBALAMIN 500 MCG TAB PO SCH (10:29)
[2022-09-29] MEDS: PYRIDOXINE HCL 50 MG TAB PO SCH (10:29)
[2022-09-29] MEDS: ENOXAPARIN SOD 100 MG/1 ML SYRINGE SC SCH ×2 (10:29→22:31)
[2022-09-29] MEDS: CARVEDILOL 12.5 MG TAB PO SCH ×2 (10:29→22:32)
[2022-09-29] MEDS: SODIUM CHLOR 0.9% PF (SALINE LOCK) 10ML VIAL/SYR IV SCH ×2 (10:30→22:00)
[2022-09-29] MEDS: FOLIC ACID 1 MG TAB PO SCH (10:31)
[2022-09-29] MEDS: fentaNYL Drip 2500mCg/250mlNS 250 ML IV SCH (11:41)
[2022-09-29] MEDS: SODIUM FERR GLUC 62.5MG/5ML 125 MG in SODIUM CHL 0.9% 100 ML IV SCH (12:33)
[2022-09-29] MEDS ORDERED: LACTULOSE 20Gm/30ML SOLN PO PRN (13:45)
[2022-09-29] MEDS: NOREPINEPHRINE 8 MG/250ML KIT 250 ML IV SCH (14:30)
[2022-09-30] VITALS (82 sets, daily range): BP systolic 95–154; BP diastolic 37–76; PULSE 59–80; RESP 14–41; TEMP 99–99.7; O2SAT 82–100
[2022-09-30] MEDS: InsuLIN REG 1unit/0.01ml Soln (100units/ml) SC SCH
[2022-09-30] MEDS: Nepro With Carb Steady 1 Liter Bottle GT SCH
[2022-09-30] MEDS: ACCU-CHEK COMFORT CURVE STRIP VI SCH
[2022-09-30] MEDS: fentaNYL Drip 2500mCg/250mlNS 250 ML IV SCH (04:04)
[2022-09-30 05:00] LABS: Eosinophils # (auto) 0.1 10 ^3/uL (0-0.8); Hemoglobin 7.7 g/dL (13.5-17.5); Lymphocytes # (auto) 0.6 10 ^3/uL (0.4-5.4)
[2022-09-30] MEDS: MIDAZOLAM DRIP 50 mg/50mL 50 ML IV SCH (05:00)
[2022-09-30 05:01] LABS: Basophils # (auto) 0 10 ^3/uL (0-0.2); Basophils % (auto) 0.5 % (0.0-2.0); Hematocrit 23.1 % (41.0-53.0); Lymphocytes % (auto) 7.7 % (10.0-50.0); Mean Corpuscular Hemoglobin 31.6 pg (28.0-32.0); Mean Corpuscular Hgb Conc. 33.3 g/dL (32.0-36.0); Mean Corpuscular Volume 94.9 fL (80.0-100.0); Monocytes % (auto) 13.2 % (0.0-12.0); Neutrophils # (auto) 6.1 10 ^3/uL (1.6-8.6); Neutrophils % (auto) 77.6 % (37.0-80.0); Nucleated Red Blood Cells % 0.2 %; Red Blood Cells 2.43 10^6/uL (4.5-5.90); Red Cell Distribution Width 17.3 % (11.8-14.3); White Blood Cell 7.9 10^3/uL (4.4-10.8)
[2022-09-30 05:16] LABS: Calcium 9.1 mg/dL (8.5-10.1); Potassium 3.7 mmol/L (3.5-5.1)
[2022-09-30] MEDS: MEROPENEM 1GM IVPB 100 ML IV SCH ×2 (05:52→18:03)
[2022-09-30] MEDS: CYANOCOBALAMIN 500 MCG TAB PO SCH (09:21)
[2022-09-30] MEDS: BUMETANIDE 2.5mg/10ml (0.25 mg/ml) INJ IV SCH ×2 (09:21→22:10)
[2022-09-30] MEDS: LINEZOLID 600MG/300ML 300 ML IV SCH (09:21)
[2022-09-30] MEDS: FOLIC ACID 1 MG TAB PO SCH (09:21)
[2022-09-30] MEDS: PYRIDOXINE HCL 50 MG TAB PO SCH (09:21)
[2022-09-30] MEDS: SODIUM CHLOR 0.9% PF (SALINE LOCK) 10ML VIAL/SYR IV SCH ×2 (09:22→22:12)
[2022-09-30] MEDS: ENOXAPARIN SOD 100 MG/1 ML SYRINGE SC SCH ×2 (09:22→22:11)
[2022-09-30] MEDS: CARVEDILOL 12.5 MG TAB PO SCH ×2 (09:22→22:11)
[2022-09-30] MEDS: PANTOPRAZOLE 40 MG/10 ML VIAL INJ IV SCH (09:22)
[2022-09-30] MEDS: NOREPINEPHRINE 8 MG/250ML KIT 250 ML IV SCH (12:12)
[2022-09-30] MEDS: SODIUM FERR GLUC 62.5MG/5ML 125 MG in SODIUM CHL 0.9% 100 ML IV SCH (12:47)
[2022-09-30] MEDS: LORazepam 2MG/ML-1ML VIAL IV PRN ×2 (13:32→22:11)
[2022-09-30] MEDS ORDERED: SODIUM CHLORIDE 0.9% 750 ML IV ONE (15:00)
[2022-09-30 16:06] LABS: BUN/Creatinine Ratio 36.5 (10.0-20.0); Calcium 8.5 mg/dL (8.5-10.1); Potassium 3.5 mmol/L (3.5-5.1)
[2022-09-30] MEDS ORDERED: SODIUM CHLORIDE 0.9% 1,000 ML IV SCH (19:00)
[2022-10-01] VITALS (67 sets, daily range): BP systolic 103–184; BP diastolic 34–83; PULSE 54–80; RESP 12–38; TEMP 97.9–99.7; O2SAT 92–100
[2022-10-01] MEDS: LORazepam 2MG/ML-1ML VIAL IV PRN ×2 (02:09→22:12)
[2022-10-01 04:12] LABS: Basophils # (auto) 0 10 ^3/uL (0-0.2); Hemoglobin 7.4 g/dL (13.5-17.5); Lymphocytes # (auto) 0.5 10 ^3/uL (0.4-5.4); Monocytes # (auto) 0.8 10 ^3/uL (0-1.3); Monocytes % (auto) 12.7 % (0.0-12.0); Neutrophils # (auto) 4.9 10 ^3/uL (1.6-8.6)
[2022-10-01 04:19] LABS: Basophils % (auto) 0.7 % (0.0-2.0); Eosinophils # (auto) 0.1 10 ^3/uL (0-0.8); Eosinophils % (auto) 0.8 % (0.0-7.0); Hematocrit 22.6 % (41.0-53.0); Lymphocytes % (auto) 7.7 % (10.0-50.0); Mean Corpuscular Hemoglobin 31.2 pg (28.0-32.0); Mean Corpuscular Hgb Conc. 32.9 g/dL (32.0-36.0); Neutrophils % (auto) 78.1 % (37.0-80.0); Nucleated Red Blood Cells % 0.2 %; Red Blood Cells 2.38 10^6/uL (4.5-5.90); White Blood Cell 6.2 10^3/uL (4.4-10.8)
[2022-10-01 04:33] LABS: Calcium 8.9 mg/dL (8.5-10.1); Potassium 3.1 mmol/L (3.5-5.1)
[2022-10-01 04:35] LABS: BUN/Creatinine Ratio 42.8 (10.0-20.0)
[2022-10-01] MEDS: MIDAZOLAM DRIP 50 mg/50mL 50 ML IV SCH (05:00)
[2022-10-01] MEDS: MEROPENEM 1GM IVPB 100 ML IV SCH ×2 (06:33→18:44)
[2022-10-01] MEDS: BUMETANIDE 2.5mg/10ml (0.25 mg/ml) INJ IV SCH ×2 (06:33→18:44)
[2022-10-01] MEDS ORDERED: LORazepam 2MG/ML-1ML VIAL IV PRN (09:45)
[2022-10-01] MEDS: POTASSIUM CHL 20MEQ/100ML 100 ML IV SCH ×3 (10:26→15:35)
[2022-10-01] MEDS: ENOXAPARIN SOD 100 MG/1 ML SYRINGE SC SCH (10:27)
[2022-10-01] MEDS: PANTOPRAZOLE 40 MG/10 ML VIAL INJ IV SCH (10:27)
[2022-10-01] MEDS: PYRIDOXINE HCL 50 MG TAB PO SCH (10:28)
[2022-10-01] MEDS: CARVEDILOL 12.5 MG TAB PO SCH ×2 (10:28→22:11)
[2022-10-01] MEDS: CYANOCOBALAMIN 500 MCG TAB PO SCH (10:28)
[2022-10-01] MEDS: SODIUM CHLOR 0.9% PF (SALINE LOCK) 10ML VIAL/SYR IV SCH ×2 (10:28→22:00)
[2022-10-01] MEDS ORDERED: LIDOCAINE 2% (LOCAL ANESTH.) PF 5ml SDV ONE (10:41)
[2022-10-01] MEDS: FOLIC ACID 1 MG TAB PO SCH (10:51)
[2022-10-01] MEDS ORDERED: BUMETANIDE 2.5mg/10ml (0.25 mg/ml) INJ IV ONE (11:15)
[2022-10-01] MEDS ORDERED: LIDOCAINE 2%HCL (LOCAL ANESTH.) INJ 10ml MDV IJ ONE (11:15)
[2022-10-01] MEDS: NOREPINEPHRINE 8 MG/250ML KIT 250 ML IV SCH (15:31)
[2022-10-01] MEDS: hydrALAZINE HCL 20 MG/ML VL IV PRN (21:31)
[2022-10-02] VITALS (99 sets, daily range): BP systolic 116–180; BP diastolic 45–82; PULSE 59–77; RESP 8–34; TEMP 97.5–99.5; O2SAT 82–100
[2022-10-02] MEDS: LORazepam 2MG/ML-1ML VIAL IV PRN ×3 (02:08→21:30)
[2022-10-02 04:25] LABS: Basophils # (auto) 0 10 ^3/uL (0-0.2); Eosinophils # (auto) 0 10 ^3/uL (0-0.8); Eosinophils % (auto) 0.4 % (0.0-7.0); Hematocrit 23.8 % (41.0-53.0); Hemoglobin 7.8 g/dL (13.5-17.5); Monocytes # (auto) 0.7 10 ^3/uL (0-1.3); Neutrophils # (auto) 4.1 10 ^3/uL (1.6-8.6); Nucleated Red Blood Cells % 0.1 %
[2022-10-02 04:28] LABS: Basophils % (auto) 0.4 % (0.0-2.0); Lymphocytes # (auto) 0.5 10 ^3/uL (0.4-5.4); Lymphocytes % (auto) 10.1 % (10.0-50.0); Mean Corpuscular Hemoglobin 30.8 pg (28.0-32.0); Mean Corpuscular Hgb Conc. 32.8 g/dL (32.0-36.0); Monocytes % (auto) 12.2 % (0.0-12.0); Neutrophils % (auto) 76.9 % (37.0-80.0); Red Blood Cells 2.53 10^6/uL (4.5-5.90); Red Cell Distribution Width 16.8 % (11.8-14.3); White Blood Cell 5.3 10^3/uL (4.4-10.8)
[2022-10-02 04:43] LABS: BUN/Creatinine Ratio 50.7 (10.0-20.0); Calcium 9.2 mg/dL (8.5-10.1)
[2022-10-02] MEDS: MEROPENEM 1GM IVPB 100 ML IV SCH ×2 (05:56→20:17)
[2022-10-02] MEDS: BUMETANIDE 2.5mg/10ml (0.25 mg/ml) INJ IV SCH ×2 (05:56→19:36)
[2022-10-02 06:03] LABS: INR 1.19 (0.9-1.15); Partial Thromboplastin Time 40.7 SEC (24.5-34.5); Prothrombin Time 12.4 sec (9.3-11.8)
[2022-10-02] MEDS: fentaNYL Drip 2500mCg/250mlNS 250 ML IV SCH ×2 (07:41→20:45)
[2022-10-02] MEDS: MIDAZOLAM DRIP 50 mg/50mL 50 ML IV SCH (07:41)
[2022-10-02] MEDS ORDERED: ceFAZolin 1GM/50ML 50 ML IV ONE (08:00)
[2022-10-02] MEDS: POTASSIUM CHL 20MEQ/100ML 100 ML IV SCH ×3 (08:06→12:59)
[2022-10-02] MEDS: SODIUM CHLOR 0.9% PF (SALINE LOCK) 10ML VIAL/SYR IV SCH (10:45)
[2022-10-02] MEDS: PANTOPRAZOLE 40 MG/10 ML VIAL INJ IV SCH (10:48)
[2022-10-02] MEDS: CYANOCOBALAMIN 500 MCG TAB PO SCH (10:49)
[2022-10-02] MEDS: FOLIC ACID 1 MG TAB PO SCH (10:49)
[2022-10-02] MEDS: CARVEDILOL 12.5 MG TAB PO SCH ×2 (10:49→22:00)
[2022-10-02] MEDS: PYRIDOXINE HCL 50 MG TAB PO SCH (10:49)
[2022-10-02] MEDS ORDERED: diphenhdrAMINE HCL 50 MG/1 ML VL ONE (12:42)
[2022-10-02] MEDS ORDERED: MIDAZOLAM HCL 2MG/2ML 2ml VIAL (1mg/ml) ONE ×2 (12:42→12:43)
[2022-10-02] MEDS ORDERED: LIDOCAINE VISCOUS 2% 15ML UD ONE (12:42)
[2022-10-02] MEDS ORDERED: fentaNYL CITRATE 100 MCG/2 ML VL ONE (12:43)
[2022-10-02] MEDS: hydrALAZINE HCL 20 MG/ML VL IV PRN (13:32)
[2022-10-02] MEDS ORDERED: EPINEPHrine HCL 1 MG/10 ML SYRG ONE (15:57)
[2022-10-02 20:09] LABS: Body Fluid Polymorphonuclear 20 % (0-25); Body Fluid Red Blood Cells 170 CUMM (0-2000); Body Fluid White Blood Cells 375 CUMM (0-200)
[2022-10-02] MEDS ORDERED: POTASSIUM CHL 20MEQ/100ML 100 ML IV ONE (23:30)
[2022-10-03] VITALS (103 sets, daily range): BP systolic 121–172; BP diastolic 57–79; PULSE 59–71; RESP 13–35; TEMP 98.1–99.9; O2SAT 98–100
[2022-10-03] MEDS: SODIUM CHLOR 0.9% PF (SALINE LOCK) 10ML VIAL/SYR IV SCH (00:43)
[2022-10-03] MEDS: hydrALAZINE HCL 20 MG/ML VL IV PRN (01:11)
[2022-10-03 04:10] LABS: Basophils # (auto) 0 10 ^3/uL (0-0.2); Basophils % (auto) 0.5 % (0.0-2.0); Eosinophils # (auto) 0 10 ^3/uL (0-0.8); Eosinophils % (auto) 0.2 % (0.0-7.0); Hematocrit 25.9 % (41.0-53.0); Hemoglobin 8.6 g/dL (13.5-17.5); Lymphocytes # (auto) 0.6 10 ^3/uL (0.4-5.4); Lymphocytes % (auto) 9.5 % (10.0-50.0); Mean Corpuscular Hemoglobin 31.3 pg (28.0-32.0); Mean Corpuscular Hgb Conc. 33.2 g/dL (32.0-36.0); Mean Corpuscular Volume 94.3 fL (80.0-100.0); Monocytes # (auto) 0.7 10 ^3/uL (0-1.3); Monocytes % (auto) 10.9 % (0.0-12.0); Neutrophils % (auto) 78.9 % (37.0-80.0); Nucleated Red Blood Cells % 0.1 %; Red Blood Cells 2.74 10^6/uL (4.5-5.90); Red Cell Distribution Width 16.8 % (11.8-14.3); White Blood Cell 6.4 10^3/uL (4.4-10.8)
[2022-10-03] MEDS: LORazepam 2MG/ML-1ML VIAL IV PRN ×3 (04:50→21:43)
[2022-10-03] MEDS: MIDAZOLAM DRIP 50 mg/50mL 50 ML IV SCH (05:00)
[2022-10-03] MEDS: Ensure Enlive Vanilla 8oz Bottle PO SCH ×7 (06:00→23:00)
[2022-10-03] MEDS: BUMETANIDE 2.5mg/10ml (0.25 mg/ml) INJ IV SCH ×2 (07:06→17:48)
[2022-10-03] MEDS: MEROPENEM 1GM IVPB 100 ML IV SCH ×3 (07:08→21:34)
[2022-10-03 07:40] LABS: BUN/Creatinine Ratio 55.9 (10.0-20.0); Calcium 9.6 mg/dL (8.5-10.1); Potassium 3.3 mmol/L (3.5-5.1)
[2022-10-03] MEDS: FOLIC ACID 1 MG TAB PO SCH (09:58)
[2022-10-03] MEDS: PANTOPRAZOLE 40 MG/10 ML VIAL INJ IV SCH (09:58)
[2022-10-03] MEDS: HYDROcodone-ACET 5/325MG TAB PO PRN ×2 (09:58→14:33)
[2022-10-03] MEDS: CYANOCOBALAMIN 500 MCG TAB PO SCH (09:58)
[2022-10-03] MEDS: CARVEDILOL 12.5 MG TAB PO SCH ×2 (09:59→21:34)
[2022-10-03] MEDS ORDERED: POTASSIUM EFFERVESENT TAB 25 MEQ PO ONE (10:00)
[2022-10-03] MEDS: PYRIDOXINE HCL 50 MG TAB PO SCH (10:13)
[2022-10-03] MEDS: FREE WATER GT SCH ×2 (12:21→17:48)
[2022-10-03] MEDS: CARBIDOPA W LEVODOPA 25/100mg TABLET PO SCH ×2 (14:24→21:34)
[2022-10-03] MEDS: fentaNYL Drip 2500mCg/250mlNS 250 ML IV SCH (20:45)
[2022-10-03] MEDS: ENOXAPARIN SOD 100 MG/1 ML SYRINGE SC SCH (21:35)
[2022-10-04] VITALS (109 sets, daily range): BP systolic 116–172; BP diastolic 56–83; PULSE 59–151; RESP 13–37; TEMP 96.1–99.3; O2SAT 95–100
[2022-10-04] MEDS: FREE WATER GT SCH ×4 (00:07→17:24)
[2022-10-04] MEDS: Ensure Enlive Vanilla 8oz Bottle PO SCH ×9 (01:00→07:44)
[2022-10-04] MEDS: LORazepam 2MG/ML-1ML VIAL IV PRN (04:04)
[2022-10-04 04:20] LABS: Basophils # (auto) 0 10 ^3/uL (0-0.2); Basophils % (auto) 0.7 % (0.0-2.0); Eosinophils # (auto) 0 10 ^3/uL (0-0.8); Eosinophils % (auto) 0.4 % (0.0-7.0); Hematocrit 26.9 % (41.0-53.0); Hemoglobin 8.8 g/dL (13.5-17.5); Lymphocytes # (auto) 0.7 10 ^3/uL (0.4-5.4); Lymphocytes % (auto) 12.1 % (10.0-50.0); Mean Corpuscular Hemoglobin 30.7 pg (28.0-32.0); Mean Corpuscular Hgb Conc. 32.6 g/dL (32.0-36.0); Mean Corpuscular Volume 94.1 fL (80.0-100.0); Monocytes # (auto) 0.7 10 ^3/uL (0-1.3); Monocytes % (auto) 11.6 % (0.0-12.0); Neutrophils # (auto) 4.5 10 ^3/uL (1.6-8.6); Neutrophils % (auto) 75.2 % (37.0-80.0); Red Blood Cells 2.86 10^6/uL (4.5-5.90); Red Cell Distribution Width 16.9 % (11.8-14.3)
[2022-10-04 04:43] LABS: BUN/Creatinine Ratio 50.9 (10.0-20.0); Calcium 9.6 mg/dL (8.5-10.1)
[2022-10-04] MEDS: MIDAZOLAM DRIP 50 mg/50mL 50 ML IV SCH (05:00)
[2022-10-04] MEDS: CARBIDOPA W LEVODOPA 25/100mg TABLET PO SCH ×3 (05:26→22:28)
[2022-10-04] MEDS: HYDROcodone-ACET 5/325MG TAB PO PRN (05:26)
[2022-10-04] MEDS: BUMETANIDE 2.5mg/10ml (0.25 mg/ml) INJ IV SCH (05:27)
[2022-10-04] MEDS: MEROPENEM 1GM IVPB 100 ML IV SCH ×3 (05:27→22:28)
[2022-10-04] MEDS: hydrALAZINE HCL 20 MG/ML VL IV PRN ×2 (06:35→21:17)
[2022-10-04] MEDS: POTASSIUM CHL 20MEQ/100ML 100 ML IV SCH ×4 (07:38→16:51)
[2022-10-04] MEDS: PANTOPRAZOLE 40 MG/10 ML VIAL INJ IV SCH ×2 (09:57→22:28)
[2022-10-04] MEDS: ENOXAPARIN SOD 100 MG/1 ML SYRINGE SC SCH (09:58)
[2022-10-04] MEDS: PYRIDOXINE HCL 50 MG TAB PO SCH (10:01)
[2022-10-04] MEDS: CYANOCOBALAMIN 500 MCG TAB PO SCH (10:01)
[2022-10-04] MEDS: CARVEDILOL 12.5 MG TAB PO SCH ×2 (10:01→22:30)
[2022-10-04] MEDS: FOLIC ACID 1 MG TAB PO SCH (10:01)
[2022-10-04 12:06] LABS: Protein, Body Fluid 5.1 g/dL (.)
[2022-10-04 17:27] LABS: Basophils # (auto) 0 10 ^3/uL (0-0.2); Basophils % (auto) 0.7 % (0.0-2.0); Eosinophils # (auto) 0 10 ^3/uL (0-0.8); Eosinophils % (auto) 0.4 % (0.0-7.0); Hematocrit 26.1 % (41.0-53.0); Hemoglobin 8.5 g/dL (13.5-17.5); Lymphocytes # (auto) 0.6 10 ^3/uL (0.4-5.4); Mean Corpuscular Hemoglobin 30.6 pg (28.0-32.0); Mean Corpuscular Hgb Conc. 32.4 g/dL (32.0-36.0); Mean Corpuscular Volume 94.6 fL (80.0-100.0); Monocytes # (auto) 0.7 10 ^3/uL (0-1.3); Monocytes % (auto) 11.1 % (0.0-12.0); Neutrophils # (auto) 5.1 10 ^3/uL (1.6-8.6); Neutrophils % (auto) 78.8 % (37.0-80.0); Red Blood Cells 2.76 10^6/uL (4.5-5.90); Red Cell Distribution Width 16.9 % (11.8-14.3); White Blood Cell 6.4 10^3/uL (4.4-10.8)
[2022-10-04 19:06] LABS: INR 1.26 (0.9-1.15); Partial Thromboplastin Time 38.3 SEC (24.5-34.5)
[2022-10-04] MEDS: fentaNYL Drip 2500mCg/250mlNS 250 ML IV SCH (20:45)
[2022-10-05] VITALS (99 sets, daily range): BP systolic 104–174; BP diastolic 45–85; PULSE 60–93; RESP 12–38; TEMP 97.7–99.1; O2SAT 95–100
[2022-10-05] MEDS: hydrALAZINE HCL 20 MG/ML VL IV PRN (03:13)
[2022-10-05 04:23] LABS: Potassium 3.5 mmol/L (3.5-5.1)
[2022-10-05 04:29] LABS: Calcium 9.6 mg/dL (8.5-10.1); Phosphorus 1.3 mg/dL (2.5-4.90); Uric Acid 8.7 mg/dL (3.5-7.2)
[2022-10-05] MEDS: HYDROcodone-ACET 5/325MG TAB PO PRN (04:53)
[2022-10-05] MEDS: MIDAZOLAM DRIP 50 mg/50mL 50 ML IV SCH (05:00)
[2022-10-05] MEDS: LORazepam 2MG/ML-1ML VIAL IV PRN ×2 (05:40→22:01)
[2022-10-05] MEDS: MEROPENEM 1GM IVPB 100 ML IV SCH ×3 (05:41→22:01)
[2022-10-05] MEDS: CARBIDOPA W LEVODOPA 25/100mg TABLET PO SCH ×3 (05:41→22:00)
[2022-10-05 05:49] LABS: Basophils # (auto) 0 10 ^3/uL (0-0.2); Basophils % (auto) 0.5 % (0.0-2.0); Eosinophils # (auto) 0 10 ^3/uL (0-0.8); Eosinophils % (auto) 0.6 % (0.0-7.0); Hematocrit 26.9 % (41.0-53.0); Hemoglobin 8.8 g/dL (13.5-17.5); Lymphocytes # (auto) 0.7 10 ^3/uL (0.4-5.4); Lymphocytes % (auto) 11.5 % (10.0-50.0); Mean Corpuscular Hemoglobin 31.1 pg (28.0-32.0); Mean Corpuscular Hgb Conc. 32.8 g/dL (32.0-36.0); Mean Corpuscular Volume 94.8 fL (80.0-100.0); Monocytes # (auto) 0.8 10 ^3/uL (0-1.3); Monocytes % (auto) 12.7 % (0.0-12.0); Neutrophils # (auto) 4.5 10 ^3/uL (1.6-8.6); Neutrophils % (auto) 74.7 % (37.0-80.0); Nucleated Red Blood Cells % 0.1 %; Red Blood Cells 2.84 10^6/uL (4.5-5.90)
[2022-10-05] MEDS ORDERED: BUMETANIDE 2.5mg/10ml (0.25 mg/ml) INJ IV ONE (06:00)
[2022-10-05] MEDS: PANTOPRAZOLE 40 MG/10 ML VIAL INJ IV SCH ×2 (09:45→21:59)
[2022-10-05] MEDS ORDERED: POTASSIUM PHOSPHATE 44 MEQ in D5W 5% 250 ML IV ONE (10:00)
[2022-10-05] MEDS: FOLIC ACID 1 MG TAB PO SCH (11:40)
[2022-10-05] MEDS: PYRIDOXINE HCL 50 MG TAB PO SCH (11:41)
[2022-10-05] MEDS: CARVEDILOL 12.5 MG TAB PO SCH ×2 (11:41→22:00)
[2022-10-05] MEDS: CYANOCOBALAMIN 500 MCG TAB PO SCH (11:42)
[2022-10-05] MEDS: NYSTATIN (MOUTH-THROAT) 500,000 UNITS/5 ML SUSP MT SCH ×2 (17:32→21:59)
[2022-10-05] MEDS: fentaNYL Drip 2500mCg/250mlNS 250 ML IV SCH (20:45)
[2022-10-06] VITALS (107 sets, daily range): BP systolic 116–160; BP diastolic 48–74; PULSE 60–87; RESP 13–40; TEMP 99–99.5; O2SAT 95–100
[2022-10-06 04:52] LABS: Basophils # (auto) 0 10 ^3/uL (0-0.2); Eosinophils # (auto) 0.1 10 ^3/uL (0-0.8); Eosinophils % (auto) 0.9 % (0.0-7.0); Hemoglobin 7.9 g/dL (13.5-17.5); Lymphocytes # (auto) 0.7 10 ^3/uL (0.4-5.4); Mean Corpuscular Hemoglobin 31.4 pg (28.0-32.0); Red Blood Cells 2.52 10^6/uL (4.5-5.90); Red Cell Distribution Width 16.9 % (11.8-14.3)
[2022-10-06 04:54] LABS: Basophils % (auto) 0.7 % (0.0-2.0); Hematocrit 24.1 % (41.0-53.0); Lymphocytes % (auto) 10.6 % (10.0-50.0); Mean Corpuscular Hgb Conc. 32.8 g/dL (32.0-36.0); Mean Corpuscular Volume 95.7 fL (80.0-100.0); Monocytes # (auto) 0.7 10 ^3/uL (0-1.3); Monocytes % (auto) 10.3 % (0.0-12.0); Neutrophils % (auto) 77.5 % (37.0-80.0); White Blood Cell 6.4 10^3/uL (4.4-10.8)
[2022-10-06 04:59] LABS: Potassium 3.4 mmol/L (3.5-5.1)
[2022-10-06] MEDS: MIDAZOLAM DRIP 50 mg/50mL 50 ML IV SCH (05:00)
[2022-10-06 05:04] LABS: BUN/Creatinine Ratio 49.1 (10.0-20.0); Calcium 9.4 mg/dL (8.5-10.1)
[2022-10-06] MEDS: NYSTATIN (MOUTH-THROAT) 500,000 UNITS/5 ML SUSP MT SCH ×4 (05:04→21:32)
[2022-10-06] MEDS: MEROPENEM 1GM IVPB 100 ML IV SCH ×3 (05:05→21:32)
[2022-10-06] MEDS: CARBIDOPA W LEVODOPA 25/100mg TABLET PO SCH ×5 (05:05→21:31)
[2022-10-06 05:21] LABS: Bilirubin, Total 0.7 mg/dL (0.2-1.0); Phosphorus 3.4 mg/dL (2.5-4.90); Total Protein 8.2 g/dL (6.4-8.2)
[2022-10-06] MEDS: CARVEDILOL 12.5 MG TAB PO SCH ×2 (10:19→21:31)
[2022-10-06] MEDS: CYANOCOBALAMIN 500 MCG TAB PO SCH (10:19)
[2022-10-06] MEDS: PANTOPRAZOLE 40 MG/10 ML VIAL INJ IV SCH ×2 (10:19→21:31)
[2022-10-06] MEDS: FOLIC ACID 1 MG TAB PO SCH (10:19)
[2022-10-06] MEDS: PYRIDOXINE HCL 50 MG TAB PO SCH (10:22)
[2022-10-06] MEDS: D5W 5% 1,000 ML IV SCH ×2 (12:19→21:53)
[2022-10-06] MEDS: LORazepam 2MG/ML-1ML VIAL IV PRN (16:25)
[2022-10-06] MEDS ORDERED: POTASSIUM EFFERVESENT TAB 25 MEQ GT ONE (20:00)
[2022-10-06] MEDS: hydrALAZINE HCL 20 MG/ML VL IV PRN (21:52)
[2022-10-07] VITALS (103 sets, daily range): BP systolic 126–162; BP diastolic 43–94; PULSE 60–89; RESP 12–37; TEMP 97.8–99; O2SAT 84–100
[2022-10-07] MEDS: LORazepam 2MG/ML-1ML VIAL IV PRN ×2 (00:27→17:26)
[2022-10-07 04:55] LABS: BUN/Creatinine Ratio 47.5 (10.0-20.0); Calcium 8.8 mg/dL (8.5-10.1); Potassium 3.7 mmol/L (3.5-5.1)
[2022-10-07] MEDS: CARBIDOPA W LEVODOPA 25/100mg TABLET PO SCH ×4 (06:16→22:09)
[2022-10-07] MEDS: NYSTATIN (MOUTH-THROAT) 500,000 UNITS/5 ML SUSP MT SCH ×4 (06:16→22:09)
[2022-10-07] MEDS: MEROPENEM 1GM IVPB 100 ML IV SCH ×3 (06:16→22:17)
[2022-10-07] MEDS: D5W 5% 1,000 ML IV SCH ×2 (07:30→13:49)
[2022-10-07] MEDS: fentaNYL Drip 2500mCg/250mlNS 250 ML IV SCH ×2 (08:07→20:45)
[2022-10-07] MEDS: MIDAZOLAM DRIP 50 mg/50mL 50 ML IV SCH (08:08)
[2022-10-07] MEDS: PYRIDOXINE HCL 50 MG TAB PO SCH (10:01)
[2022-10-07] MEDS: CARVEDILOL 12.5 MG TAB PO SCH ×2 (10:02→22:00)
[2022-10-07] MEDS: FOLIC ACID 1 MG TAB PO SCH (10:02)
[2022-10-07] MEDS: PANTOPRAZOLE 40 MG/10 ML VIAL INJ IV SCH ×2 (10:02→22:03)
[2022-10-07] MEDS: CYANOCOBALAMIN 500 MCG TAB PO SCH (10:02)
[2022-10-07 10:23] LABS: Eosinophils # (auto) 0.1 10 ^3/uL (0-0.8); Eosinophils % (auto) 1.3 % (0.0-7.0); Hemoglobin 8.4 g/dL (13.5-17.5); Lymphocytes # (auto) 0.9 10 ^3/uL (0.4-5.4)
[2022-10-07 10:24] LABS: Basophils # (auto) 0.1 10 ^3/uL (0-0.2); Basophils % (auto) 0.9 % (0.0-2.0); Hematocrit 25.9 % (41.0-53.0); Lymphocytes % (auto) 11.3 % (10.0-50.0); Mean Corpuscular Hemoglobin 31.2 pg (28.0-32.0); Mean Corpuscular Hgb Conc. 32.5 g/dL (32.0-36.0); Mean Corpuscular Volume 95.8 fL (80.0-100.0); Monocytes # (auto) 0.8 10 ^3/uL (0-1.3); Monocytes % (auto) 9.8 % (0.0-12.0); Neutrophils # (auto) 6.1 10 ^3/uL (1.6-8.6); Neutrophils % (auto) 76.7 % (37.0-80.0); Red Cell Distribution Width 17.9 % (11.8-14.3)
[2022-10-07] MEDS ORDERED: ENOXAPARIN SOD 80 MG/0.8ML SYRINGE SC ONE (13:45)
[2022-10-07] MEDS: BUMETANIDE 2.5mg/10ml (0.25 mg/ml) INJ IV SCH (18:02)
[2022-10-07] MEDS ORDERED: ENOXAPARIN SOD 100 MG/1 ML SYRINGE SC SCH (22:00)
[2022-10-07] MEDS: ENOXAPARIN SOD 40 MG/0.4 ML SYRINGE SC SCH (22:13)
[2022-10-08] VITALS (38 sets, daily range): BP systolic 100–150; BP diastolic 26–69; PULSE 60; RESP 13–42; TEMP 96.9–98.1; O2SAT 40–100
[2022-10-08] MEDS: hydrALAZINE HCL 20 MG/ML VL IV PRN (01:18)
[2022-10-08] MEDS: D5W 5% 1,000 ML IV SCH ×2 (02:18→12:09)
[2022-10-08 04:25] LABS: Basophils # (auto) 0.1 10 ^3/uL (0-0.2); Basophils % (auto) 0.9 % (0.0-2.0); Eosinophils # (auto) 0.1 10 ^3/uL (0-0.8); Eosinophils % (auto) 1.6 % (0.0-7.0); Hematocrit 26.3 % (41.0-53.0); Hemoglobin 8.6 g/dL (13.5-17.5); Lymphocytes # (auto) 0.9 10 ^3/uL (0.4-5.4); Lymphocytes % (auto) 11.5 % (10.0-50.0); Mean Corpuscular Hemoglobin 31.2 pg (28.0-32.0); Mean Corpuscular Hgb Conc. 32.6 g/dL (32.0-36.0); Mean Corpuscular Volume 95.5 fL (80.0-100.0); Monocytes # (auto) 0.7 10 ^3/uL (0-1.3); Monocytes % (auto) 8.7 % (0.0-12.0); Neutrophils # (auto) 6.2 10 ^3/uL (1.6-8.6); Neutrophils % (auto) 77.3 % (37.0-80.0); Nucleated Red Blood Cells % 0.1 %; Red Blood Cells 2.76 10^6/uL (4.5-5.90)
[2022-10-08] MEDS: LORazepam 2MG/ML-1ML VIAL IV PRN (04:28)
[2022-10-08 04:38] LABS: BUN/Creatinine Ratio 48.4 (10.0-20.0); Calcium 8.9 mg/dL (8.5-10.1); Potassium 3.7 mmol/L (3.5-5.1)
[2022-10-08] MEDS: MIDAZOLAM DRIP 50 mg/50mL 50 ML IV SCH (05:00)
[2022-10-08] MEDS: BUMETANIDE 2.5mg/10ml (0.25 mg/ml) INJ IV SCH ×2 (06:47→17:59)
[2022-10-08] MEDS: CARBIDOPA W LEVODOPA 25/100mg TABLET PO SCH ×4 (06:47→22:12)
[2022-10-08] MEDS: NYSTATIN (MOUTH-THROAT) 500,000 UNITS/5 ML SUSP MT SCH ×4 (06:51→22:12)
[2022-10-08] MEDS: MEROPENEM 1GM IVPB 100 ML IV SCH ×3 (06:51→22:12)
[2022-10-08] MEDS: FOLIC ACID 1 MG TAB PO SCH (10:30)
[2022-10-08] MEDS: CYANOCOBALAMIN 500 MCG TAB PO SCH (10:31)
[2022-10-08] MEDS: ENOXAPARIN SOD 40 MG/0.4 ML SYRINGE SC SCH ×2 (10:31→22:12)
[2022-10-08] MEDS: PANTOPRAZOLE 40 MG/10 ML VIAL INJ IV SCH ×2 (10:31→22:15)
[2022-10-08] MEDS: PYRIDOXINE HCL 50 MG TAB PO SCH (10:31)
[2022-10-08] MEDS: CARVEDILOL 12.5 MG TAB PO SCH ×2 (10:32→22:12)
[2022-10-08] MEDS: FREE WATER GT SCH ×4 (11:56→22:11)
[2022-10-08 12:14] LABS: Base Excess -0.2 mmol/L (-2.0-2.0)
[2022-10-08 15:37] LABS: Base Excess -0.3 mmol/L (-2.0-2.0)
[2022-10-08] MEDS: fentaNYL Drip 2500mCg/250mlNS 250 ML IV SCH (20:45)
[2022-10-09] VITALS (41 sets, daily range): BP systolic 118–169; BP diastolic 52–71; PULSE 59–60; RESP 16–29; TEMP 97.7–98.2; O2SAT 40–100
[2022-10-09] MEDS: FREE WATER GT SCH ×6 (02:00→22:06)
[2022-10-09] MEDS: MIDAZOLAM DRIP 50 mg/50mL 50 ML IV SCH (05:00)
[2022-10-09 05:19] LABS: Albumin 3.7 g/dL (3.4-5.0); BUN/Creatinine Ratio 42.4 (10.0-20.0); Bilirubin, Total 0.8 mg/dL (0.2-1.0); Calcium 8.2 mg/dL (8.5-10.1); Magnesium 2.5 mg/dL (1.6-2.6); Phosphorus 2.3 mg/dL (2.5-4.90)
[2022-10-09 05:29] LABS: Basophils # (auto) 0 10 ^3/uL (0-0.2); Basophils % (auto) 0.5 % (0.0-2.0); Eosinophils # (auto) 0.1 10 ^3/uL (0-0.8); Eosinophils % (auto) 1.6 % (0.0-7.0); Hematocrit 26.6 % (41.0-53.0); Hemoglobin 8.7 g/dL (13.5-17.5); Lymphocytes # (auto) 1.1 10 ^3/uL (0.4-5.4); Lymphocytes % (auto) 13.2 % (10.0-50.0); Mean Corpuscular Hgb Conc. 32.8 g/dL (32.0-36.0); Mean Corpuscular Volume 94.4 fL (80.0-100.0); Monocytes # (auto) 0.7 10 ^3/uL (0-1.3); Monocytes % (auto) 8.5 % (0.0-12.0); Neutrophils # (auto) 6.1 10 ^3/uL (1.6-8.6); Neutrophils % (auto) 76.2 % (37.0-80.0); Red Blood Cells 2.81 10^6/uL (4.5-5.90); Red Cell Distribution Width 17.3 % (11.8-14.3)
[2022-10-09] MEDS: MEROPENEM 1GM IVPB 100 ML IV SCH (06:41)
[2022-10-09] MEDS: CARBIDOPA W LEVODOPA 25/100mg TABLET PO SCH ×4 (06:41→22:05)
[2022-10-09] MEDS: BUMETANIDE 2.5mg/10ml (0.25 mg/ml) INJ IV SCH ×2 (06:41→18:02)
[2022-10-09] MEDS: D5W 5% 1,000 ML IV SCH (06:53)
[2022-10-09] MEDS: NYSTATIN (MOUTH-THROAT) 500,000 UNITS/5 ML SUSP MT SCH ×4 (07:26→22:04)
[2022-10-09] MEDS: ENOXAPARIN SOD 40 MG/0.4 ML SYRINGE SC SCH ×2 (10:27→22:05)
[2022-10-09] MEDS: PANTOPRAZOLE 40 MG/10 ML VIAL INJ IV SCH ×2 (10:27→22:04)
[2022-10-09] MEDS: CYANOCOBALAMIN 500 MCG TAB PO SCH (10:28)
[2022-10-09] MEDS: FOLIC ACID 1 MG TAB PO SCH (10:28)
[2022-10-09] MEDS: PYRIDOXINE HCL 50 MG TAB PO SCH (10:28)
[2022-10-09] MEDS: CARVEDILOL 12.5 MG TAB PO SCH ×2 (10:28→22:05)
[2022-10-10] VITALS (74 sets, daily range): BP systolic 119–166; BP diastolic 36–72; PULSE 60–68; RESP 14–29; TEMP 97.3–98.5; O2SAT 92–100
[2022-10-10] MEDS: FREE WATER GT SCH ×6 (02:23→21:42)
[2022-10-10] MEDS: D5W 5% 1,000 ML IV SCH (02:43)
[2022-10-10] MEDS: MIDAZOLAM DRIP 50 mg/50mL 50 ML IV SCH (05:00)
[2022-10-10] MEDS: hydrALAZINE HCL 20 MG/ML VL IV PRN (05:03)
[2022-10-10 05:30] LABS: Basophils # (auto) 0 10 ^3/uL (0-0.2); Basophils % (auto) 0.6 % (0.0-2.0); Eosinophils # (auto) 0.1 10 ^3/uL (0-0.8); Hemoglobin 8.3 g/dL (13.5-17.5); Monocytes # (auto) 0.7 10 ^3/uL (0-1.3)
[2022-10-10 05:33] LABS: Calcium 8.1 mg/dL (8.5-10.1); Eosinophils % (auto) 1.4 % (0.0-7.0); Hematocrit 24.8 % (41.0-53.0); Lymphocytes # (auto) 0.8 10 ^3/uL (0.4-5.4); Mean Corpuscular Hemoglobin 31.5 pg (28.0-32.0); Mean Corpuscular Hgb Conc. 33.4 g/dL (32.0-36.0); Mean Corpuscular Volume 94.2 fL (80.0-100.0); Monocytes % (auto) 10.9 % (0.0-12.0); Neutrophils # (auto) 4.7 10 ^3/uL (1.6-8.6); Neutrophils % (auto) 74.1 % (37.0-80.0); Nucleated Red Blood Cells % 0.1 %; Phosphorus 2.3 mg/dL (2.5-4.90); Potassium 3.7 mmol/L (3.5-5.1); Red Blood Cells 2.64 10^6/uL (4.5-5.90); Red Cell Distribution Width 16.8 % (11.8-14.3); Uric Acid 5.8 mg/dL (3.5-7.2); White Blood Cell 6.4 10^3/uL (4.4-10.8)
[2022-10-10] MEDS: CARBIDOPA W LEVODOPA 25/100mg TABLET PO SCH ×4 (06:27→21:41)
[2022-10-10] MEDS: NYSTATIN (MOUTH-THROAT) 500,000 UNITS/5 ML SUSP MT SCH ×4 (06:32→21:41)
[2022-10-10] MEDS: BUMETANIDE 2.5mg/10ml (0.25 mg/ml) INJ IV SCH ×2 (06:35→17:49)
[2022-10-10] MEDS: PANTOPRAZOLE 40 MG/10 ML VIAL INJ IV SCH ×2 (09:53→21:41)
[2022-10-10] MEDS: PYRIDOXINE HCL 50 MG TAB PO SCH (09:54)
[2022-10-10] MEDS: CYANOCOBALAMIN 500 MCG TAB PO SCH (09:54)
[2022-10-10] MEDS: FOLIC ACID 1 MG TAB PO SCH (09:54)
[2022-10-10] MEDS: ENOXAPARIN SOD 40 MG/0.4 ML SYRINGE SC SCH ×2 (09:54→21:42)
[2022-10-10] MEDS: CARVEDILOL 12.5 MG TAB PO SCH ×2 (09:54→21:41)
[2022-10-10] MEDS ORDERED: POTASSIUM PHOSPHATE 22 MEQ in SODIUM CHL 0.9% 100 ML IV ONE (10:45)
[2022-10-11] VITALS (46 sets, daily range): BP systolic 133–180; BP diastolic 47–67; PULSE 59–68; RESP 13–31; TEMP 97.8–98.4; O2SAT 91–100
[2022-10-11] MEDS: FREE WATER GT SCH ×6 (02:00→22:45)
[2022-10-11 04:22] LABS: Basophils # (auto) 0 10 ^3/uL (0-0.2); Hemoglobin 8.2 g/dL (13.5-17.5); Lymphocytes # (auto) 0.9 10 ^3/uL (0.4-5.4); Monocytes # (auto) 0.7 10 ^3/uL (0-1.3); Neutrophils # (auto) 4.9 10 ^3/uL (1.6-8.6)
[2022-10-11 04:26] LABS: Basophils % (auto) 0.5 % (0.0-2.0); Eosinophils # (auto) 0 10 ^3/uL (0-0.8); Eosinophils % (auto) 0.7 % (0.0-7.0); Hematocrit 24.4 % (41.0-53.0); Mean Corpuscular Hemoglobin 31.4 pg (28.0-32.0); Mean Corpuscular Hgb Conc. 33.5 g/dL (32.0-36.0); Mean Corpuscular Volume 93.8 fL (80.0-100.0); Monocytes % (auto) 10.4 % (0.0-12.0); Neutrophils % (auto) 74.4 % (37.0-80.0); Red Cell Distribution Width 17.2 % (11.8-14.3); White Blood Cell 6.6 10^3/uL (4.4-10.8)
[2022-10-11 04:28] LABS: Potassium 3.9 mmol/L (3.5-5.1)
[2022-10-11 04:31] LABS: BUN/Creatinine Ratio 47.8 (10.0-20.0)
[2022-10-11] MEDS: MIDAZOLAM DRIP 50 mg/50mL 50 ML IV SCH (05:00)
[2022-10-11] MEDS: CARBIDOPA W LEVODOPA 25/100mg TABLET PO SCH ×4 (06:27→22:47)
[2022-10-11] MEDS: NYSTATIN (MOUTH-THROAT) 500,000 UNITS/5 ML SUSP MT SCH ×4 (06:27→22:45)
[2022-10-11] MEDS: BUMETANIDE 2.5mg/10ml (0.25 mg/ml) INJ IV SCH (06:28)
[2022-10-11] MEDS: PANTOPRAZOLE 40 MG/10 ML VIAL INJ IV SCH ×2 (09:56→22:45)
[2022-10-11] MEDS: FOLIC ACID 1 MG TAB PO SCH (09:57)
[2022-10-11] MEDS: CARVEDILOL 12.5 MG TAB PO SCH ×2 (09:57→22:00)
[2022-10-11] MEDS: CYANOCOBALAMIN 500 MCG TAB PO SCH (09:58)
[2022-10-11] MEDS: ENOXAPARIN SOD 40 MG/0.4 ML SYRINGE SC SCH ×2 (09:58→22:48)
[2022-10-11] MEDS: PYRIDOXINE HCL 50 MG TAB PO SCH (13:01)
[2022-10-12] VITALS (25 sets, daily range): BP systolic 128–188; BP diastolic 46–68; PULSE 59–73; RESP 16–37; TEMP 98.1–98.8; O2SAT 86–100
[2022-10-12] MEDS: FREE WATER GT SCH ×6 (02:00→22:57)
[2022-10-12 04:27] LABS: Basophils # (auto) 0 10 ^3/uL (0-0.2); Eosinophils # (auto) 0.1 10 ^3/uL (0-0.8); Eosinophils % (auto) 0.8 % (0.0-7.0); Lymphocytes % (auto) 15.5 % (10.0-50.0); Monocytes # (auto) 0.8 10 ^3/uL (0-1.3); Neutrophils # (auto) 4.8 10 ^3/uL (1.6-8.6); Nucleated Red Blood Cells % 0.1 %; White Blood Cell 6.7 10^3/uL (4.4-10.8)
[2022-10-12 04:29] LABS: Basophils % (auto) 0.5 % (0.0-2.0); Hematocrit 23.8 % (41.0-53.0); Mean Corpuscular Hemoglobin 31.6 pg (28.0-32.0); Mean Corpuscular Hgb Conc. 33.5 g/dL (32.0-36.0); Mean Corpuscular Volume 94.4 fL (80.0-100.0); Monocytes % (auto) 11.5 % (0.0-12.0); Neutrophils % (auto) 71.7 % (37.0-80.0); Red Blood Cells 2.52 10^6/uL (4.5-5.90); Red Cell Distribution Width 17.3 % (11.8-14.3)
[2022-10-12 04:45] LABS: BUN/Creatinine Ratio 51.6 (10.0-20.0); Calcium 8.1 mg/dL (8.5-10.1)
[2022-10-12] MEDS: MIDAZOLAM DRIP 50 mg/50mL 50 ML IV SCH (05:00)
[2022-10-12] MEDS: CARBIDOPA W LEVODOPA 25/100mg TABLET PO SCH ×4 (06:21→22:56)
[2022-10-12] MEDS: NYSTATIN (MOUTH-THROAT) 500,000 UNITS/5 ML SUSP MT SCH ×5 (06:21→22:55)
[2022-10-12] MEDS: CARVEDILOL 12.5 MG TAB PO SCH ×2 (09:57→23:00)
[2022-10-12] MEDS: FOLIC ACID 1 MG TAB PO SCH (09:57)
[2022-10-12] MEDS: CYANOCOBALAMIN 500 MCG TAB PO SCH (09:57)
[2022-10-12] MEDS: ENOXAPARIN SOD 40 MG/0.4 ML SYRINGE SC SCH ×2 (09:58→22:00)
[2022-10-12] MEDS: BUMETANIDE 1mg/4ml VIAL (0.25mg/ml) IV SCH (09:58)
[2022-10-12] MEDS: PANTOPRAZOLE 40 MG/10 ML VIAL INJ IV SCH ×2 (09:58→22:55)
[2022-10-12] MEDS: PYRIDOXINE HCL 50 MG TAB PO SCH (10:02)
[2022-10-12] MEDS: hydrALAZINE HCL 20 MG/ML VL IV PRN (21:07)
[2022-10-12] MEDS: LORazepam 2MG/ML-1ML VIAL IV PRN (22:55)
[2022-10-13] VITALS (25 sets, daily range): BP systolic 89–135; BP diastolic 35–54; PULSE 60–83; RESP 19–37; TEMP 97.5–99.3; O2SAT 92–100
[2022-10-13] MEDS: FREE WATER GT SCH ×6 (02:00→22:00)
[2022-10-13 03:54] LABS: Eosinophils # (auto) 0 10 ^3/uL (0-0.8); Neutrophils # (auto) 6.3 10 ^3/uL (1.6-8.6); Red Blood Cells 2.35 10^6/uL (4.5-5.90)
[2022-10-13 03:56] LABS: Basophils # (auto) 0.1 10 ^3/uL (0-0.2); Basophils % (auto) 0.6 % (0.0-2.0); Eosinophils % (auto) 0.2 % (0.0-7.0); Hemoglobin 7.4 g/dL (13.5-17.5); Lymphocytes % (auto) 12.3 % (10.0-50.0); Mean Corpuscular Hemoglobin 31.6 pg (28.0-32.0); Mean Corpuscular Hgb Conc. 33.8 g/dL (32.0-36.0); Mean Corpuscular Volume 93.7 fL (80.0-100.0); Monocytes # (auto) 0.7 10 ^3/uL (0-1.3); Monocytes % (auto) 9.1 % (0.0-12.0); Neutrophils % (auto) 77.8 % (37.0-80.0); Red Cell Distribution Width 17.3 % (11.8-14.3); White Blood Cell 8.1 10^3/uL (4.4-10.8)
[2022-10-13 03:58] LABS: INR 1.08 (0.9-1.15); Partial Thromboplastin Time 31.1 SEC (24.5-34.5); Prothrombin Time 11.3 sec (9.3-11.8)
[2022-10-13 03:59] LABS: Potassium 4.2 mmol/L (3.5-5.1)
[2022-10-13 04:07] LABS: Albumin 3.4 g/dL (3.4-5.0); BUN/Creatinine Ratio 57.1 (10.0-20.0); Bilirubin, Total 0.8 mg/dL (0.2-1.0); Calcium 8.3 mg/dL (8.5-10.1); Total Protein 7.7 g/dL (6.4-8.2)
[2022-10-13] MEDS: MIDAZOLAM DRIP 50 mg/50mL 50 ML IV SCH (05:00)
[2022-10-13] MEDS: CARBIDOPA W LEVODOPA 25/100mg TABLET PO SCH ×4 (06:06→23:02)
[2022-10-13] MEDS: NYSTATIN (MOUTH-THROAT) 500,000 UNITS/5 ML SUSP MT SCH ×4 (06:06→23:02)
[2022-10-13] MEDS: ENOXAPARIN SOD 40 MG/0.4 ML SYRINGE SC SCH ×2 (10:00→22:00)
[2022-10-13] MEDS: PYRIDOXINE HCL 50 MG TAB PO SCH (10:58)
[2022-10-13] MEDS: BUMETANIDE 1mg/4ml VIAL (0.25mg/ml) IV SCH (10:58)
[2022-10-13] MEDS: PANTOPRAZOLE 40 MG/10 ML VIAL INJ IV SCH ×2 (10:58→23:02)
[2022-10-13] MEDS: FOLIC ACID 1 MG TAB PO SCH (10:59)
[2022-10-13] MEDS: CARVEDILOL 12.5 MG TAB PO SCH ×2 (11:00→23:03)
[2022-10-13] MEDS: CYANOCOBALAMIN 500 MCG TAB PO SCH (11:00)
[2022-10-14] VITALS (39 sets, daily range): BP systolic 97–144; BP diastolic 29–64; PULSE 60–84; RESP 13–29; TEMP 96.4–98.6; O2SAT 86–100
[2022-10-14] MEDS: FREE WATER GT SCH ×6 (02:10→22:47)
[2022-10-14] MEDS: MIDAZOLAM DRIP 50 mg/50mL 50 ML IV SCH (05:00)
[2022-10-14] MEDS: NYSTATIN (MOUTH-THROAT) 500,000 UNITS/5 ML SUSP MT SCH ×4 (07:14→22:46)
[2022-10-14] MEDS: CARBIDOPA W LEVODOPA 25/100mg TABLET PO SCH ×4 (07:15→22:46)
[2022-10-14] MEDS: FOLIC ACID 1 MG TAB PO SCH (11:11)
[2022-10-14] MEDS: PANTOPRAZOLE 40 MG/10 ML VIAL INJ IV SCH ×2 (11:11→22:45)
[2022-10-14] MEDS: PYRIDOXINE HCL 50 MG TAB PO SCH (11:11)
[2022-10-14] MEDS: BUMETANIDE 1mg/4ml VIAL (0.25mg/ml) IV SCH (11:11)
[2022-10-14] MEDS: CARVEDILOL 12.5 MG TAB PO SCH ×2 (11:17→22:46)
[2022-10-14] MEDS: CYANOCOBALAMIN 500 MCG TAB PO SCH (11:18)
[2022-10-14] MEDS: ENOXAPARIN SOD 40 MG/0.4 ML SYRINGE SC SCH ×2 (11:20→22:00)
[2022-10-14 11:34] LABS: Base Excess -0.7 mmol/L (-2.0-2.0)
[2022-10-14 13:14] LABS: Basophils # (auto) 0 10 ^3/uL (0-0.2); Eosinophils # (auto) 0 10 ^3/uL (0-0.8); Lymphocytes # (auto) 0.7 10 ^3/uL (0.4-5.4); Monocytes # (auto) 0.6 10 ^3/uL (0-1.3); Nucleated Red Blood Cells % 0.1 %
[2022-10-14 13:19] LABS: Basophils % (auto) 0.6 % (0.0-2.0); Eosinophils % (auto) 0.4 % (0.0-7.0); Lymphocytes % (auto) 10.7 % (10.0-50.0); Mean Corpuscular Hemoglobin 32.6 pg (28.0-32.0); Mean Corpuscular Hgb Conc. 34.3 g/dL (32.0-36.0); Mean Corpuscular Volume 95.3 fL (80.0-100.0); Monocytes % (auto) 9.1 % (0.0-12.0); Neutrophils % (auto) 79.2 % (37.0-80.0); Red Blood Cells 1.78 10^6/uL (4.5-5.90); Red Cell Distribution Width 18.1 % (11.8-14.3); White Blood Cell 6.3 10^3/uL (4.4-10.8)
[2022-10-14 13:24] LABS: Hemoglobin 5.8 g/dL (13.5-17.5)
[2022-10-14 13:40] LABS: Albumin 3.2 g/dL (3.4-5.0); Calcium 8.2 mg/dL (8.5-10.1); Potassium 3.6 mmol/L (3.5-5.1)
[2022-10-14 13:44] LABS: BUN/Creatinine Ratio 75.8 (10.0-20.0); Bilirubin, Total 0.6 mg/dL (0.2-1.0); Total Protein 7.4 g/dL (6.4-8.2)
[2022-10-14 16:34] LABS: Anisocytosis Moderate; Platelet Estimate Adequate; Stomatocytes Few
[2022-10-15] VITALS (34 sets, daily range): BP systolic 110–141; BP diastolic 35–59; PULSE 55–61; RESP 12–36; TEMP 96.6–97.6; O2SAT 89–100
[2022-10-15] MEDS: FREE WATER GT SCH ×2 (02:45→05:19)
[2022-10-15] MEDS: MIDAZOLAM DRIP 50 mg/50mL 50 ML IV SCH (05:00)
[2022-10-15 05:04] LABS: Basophils # (auto) 0 10 ^3/uL (0-0.2); Basophils % (auto) 0.3 % (0.0-2.0); Eosinophils # (auto) 0 10 ^3/uL (0-0.8); Eosinophils % (auto) 0.3 % (0.0-7.0); Hematocrit 22.6 % (41.0-53.0); Hemoglobin 7.8 g/dL (13.5-17.5); Lymphocytes # (auto) 0.7 10 ^3/uL (0.4-5.4); Lymphocytes % (auto) 10.7 % (10.0-50.0); Mean Corpuscular Hemoglobin 31.6 pg (28.0-32.0); Mean Corpuscular Hgb Conc. 34.5 g/dL (32.0-36.0); Mean Corpuscular Volume 91.6 fL (80.0-100.0); Monocytes # (auto) 0.6 10 ^3/uL (0-1.3); Monocytes % (auto) 9.1 % (0.0-12.0); Neutrophils # (auto) 5.2 10 ^3/uL (1.6-8.6); Neutrophils % (auto) 79.6 % (37.0-80.0); Red Blood Cells 2.47 10^6/uL (4.5-5.90); Red Cell Distribution Width 17.6 % (11.8-14.3); White Blood Cell 6.5 10^3/uL (4.4-10.8)
[2022-10-15] MEDS: NYSTATIN (MOUTH-THROAT) 500,000 UNITS/5 ML SUSP MT SCH ×4 (05:18→21:58)
[2022-10-15] MEDS: CARBIDOPA W LEVODOPA 25/100mg TABLET PO SCH ×4 (05:18→21:58)
[2022-10-15 05:21] LABS: BUN/Creatinine Ratio 89.9 (10.0-20.0); Calcium 8.5 mg/dL (8.5-10.1); Potassium 3.4 mmol/L (3.5-5.1)
[2022-10-15] MEDS: PANTOPRAZOLE 40 MG/10 ML VIAL INJ IV SCH ×2 (09:54→21:58)
[2022-10-15] MEDS: BUMETANIDE 1mg/4ml VIAL (0.25mg/ml) IV SCH (09:54)
[2022-10-15] MEDS: PYRIDOXINE HCL 50 MG TAB PO SCH (09:55)
[2022-10-15] MEDS: CYANOCOBALAMIN 500 MCG TAB PO SCH (09:55)
[2022-10-15] MEDS: FOLIC ACID 1 MG TAB PO SCH (09:55)
[2022-10-15] MEDS ORDERED: POTASSIUM CHL 20MEQ/100ML 100 ML IV ONE (12:00)
[2022-10-15] MEDS: ENOXAPARIN SOD 40 MG/0.4 ML SYRINGE SC SCH ×2 (12:00→21:57)
[2022-10-15] MEDS: CARVEDILOL 12.5 MG TAB PO SCH ×2 (12:00→21:58)
[2022-10-15] MEDS ORDERED: SODIUM FERR GLUC 62.5MG/5ML 125 MG in SODIUM CHL 0.9% 100 ML IV ONE (18:15)
[2022-10-16] VITALS (47 sets, daily range): BP systolic 92–146; BP diastolic 40–68; PULSE 60–81; RESP 12–44; TEMP 98.1–100.3; O2SAT 80–100
[2022-10-16 03:50] LABS: Basophils # (auto) 0 10 ^3/uL (0-0.2); Eosinophils # (auto) 0 10 ^3/uL (0-0.8); Eosinophils % (auto) 0.6 % (0.0-7.0); Hematocrit 22.6 % (41.0-53.0); Hemoglobin 7.8 g/dL (13.5-17.5); Neutrophils # (auto) 4.8 10 ^3/uL (1.6-8.6); Red Blood Cells 2.43 10^6/uL (4.5-5.90); Red Cell Distribution Width 17.5 % (11.8-14.3); White Blood Cell 6.1 10^3/uL (4.4-10.8)
[2022-10-16 03:52] LABS: Basophils % (auto) 0.5 % (0.0-2.0); Lymphocytes # (auto) 0.7 10 ^3/uL (0.4-5.4); Lymphocytes % (auto) 10.7 % (10.0-50.0); Mean Corpuscular Hgb Conc. 34.3 g/dL (32.0-36.0); Mean Corpuscular Volume 93.2 fL (80.0-100.0); Monocytes # (auto) 0.5 10 ^3/uL (0-1.3); Monocytes % (auto) 8.7 % (0.0-12.0); Neutrophils % (auto) 79.5 % (37.0-80.0)
[2022-10-16 04:02] LABS: BUN/Creatinine Ratio 62.5 (10.0-20.0); Calcium 8.8 mg/dL (8.5-10.1); Potassium 3.7 mmol/L (3.5-5.1)
[2022-10-16] MEDS: MIDAZOLAM DRIP 50 mg/50mL 50 ML IV SCH (05:00)
[2022-10-16] MEDS: CARBIDOPA W LEVODOPA 25/100mg TABLET PO SCH ×4 (05:15→21:33)
[2022-10-16] MEDS: NYSTATIN (MOUTH-THROAT) 500,000 UNITS/5 ML SUSP MT SCH ×4 (05:15→21:33)
[2022-10-16] MEDS: PANTOPRAZOLE 40 MG/10 ML VIAL INJ IV SCH ×2 (09:47→21:32)
[2022-10-16] MEDS: ENOXAPARIN SOD 40 MG/0.4 ML SYRINGE SC SCH ×2 (09:47→21:32)
[2022-10-16] MEDS: FOLIC ACID 1 MG TAB PO SCH (09:47)
[2022-10-16] MEDS: BUMETANIDE 1mg/4ml VIAL (0.25mg/ml) IV SCH (09:47)
[2022-10-16] MEDS: CYANOCOBALAMIN 500 MCG TAB PO SCH (09:47)
[2022-10-16] MEDS: CARVEDILOL 12.5 MG TAB PO SCH ×2 (09:48→21:33)
[2022-10-16] MEDS: PYRIDOXINE HCL 50 MG TAB PO SCH (09:58)
[2022-10-17] VITALS (65 sets, daily range): BP systolic 108–160; BP diastolic 36–61; PULSE 60–63; RESP 10–36; TEMP 97.7–99.4; O2SAT 93–100
[2022-10-17 04:59] LABS: Basophils # (auto) 0 10 ^3/uL (0-0.2); Basophils % (auto) 0.4 % (0.0-2.0); Eosinophils # (auto) 0 10 ^3/uL (0-0.8); Monocytes # (auto) 0.6 10 ^3/uL (0-1.3); Monocytes % (auto) 9.8 % (0.0-12.0)
[2022-10-17] MEDS: MIDAZOLAM DRIP 50 mg/50mL 50 ML IV SCH (05:00)
[2022-10-17 05:02] LABS: Eosinophils % (auto) 0.7 % (0.0-7.0); Hemoglobin 7.6 g/dL (13.5-17.5); Lymphocytes % (auto) 14.6 % (10.0-50.0); Mean Corpuscular Hemoglobin 32.2 pg (28.0-32.0); Mean Corpuscular Hgb Conc. 33.2 g/dL (32.0-36.0); Mean Corpuscular Volume 96.9 fL (80.0-100.0); Neutrophils # (auto) 4.9 10 ^3/uL (1.6-8.6); Neutrophils % (auto) 74.5 % (37.0-80.0); Nucleated Red Blood Cells % 0.2 %; Red Blood Cells 2.37 10^6/uL (4.5-5.90); Red Cell Distribution Width 18.8 % (11.8-14.3); White Blood Cell 6.6 10^3/uL (4.4-10.8)
[2022-10-17 05:21] LABS: BUN/Creatinine Ratio 58.6 (10.0-20.0); Calcium 8.6 mg/dL (8.5-10.1); Potassium 3.7 mmol/L (3.5-5.1)
[2022-10-17] MEDS: CARBIDOPA W LEVODOPA 25/100mg TABLET PO SCH ×4 (05:41→21:30)
[2022-10-17] MEDS: NYSTATIN (MOUTH-THROAT) 500,000 UNITS/5 ML SUSP MT SCH ×4 (05:41→21:30)
[2022-10-17] MEDS: CARVEDILOL 12.5 MG TAB PO SCH (10:00)
[2022-10-17] MEDS: PANTOPRAZOLE 40 MG/10 ML VIAL INJ IV SCH ×2 (10:54→21:30)
[2022-10-17] MEDS: ENOXAPARIN SOD 40 MG/0.4 ML SYRINGE SC SCH ×2 (10:54→21:30)
[2022-10-17] MEDS: BUMETANIDE 1mg/4ml VIAL (0.25mg/ml) IV SCH (10:55)
[2022-10-17] MEDS: CYANOCOBALAMIN 500 MCG TAB PO SCH (10:56)
[2022-10-17] MEDS: PYRIDOXINE HCL 50 MG TAB PO SCH (10:56)
[2022-10-17] MEDS: FOLIC ACID 1 MG TAB PO SCH (10:56)
[2022-10-18] VITALS (36 sets, daily range): BP systolic 102–147; BP diastolic 35–55; PULSE 60–86; RESP 10–41; TEMP 97.2–98.4; O2SAT 87–100
[2022-10-18] MEDS: MIDAZOLAM DRIP 50 mg/50mL 50 ML IV SCH (00:21)
[2022-10-18 04:53] LABS: Basophils # (auto) 0 10 ^3/uL (0-0.2); Eosinophils # (auto) 0 10 ^3/uL (0-0.8); Hemoglobin 8.1 g/dL (13.5-17.5); Monocytes # (auto) 0.6 10 ^3/uL (0-1.3); Neutrophils # (auto) 5.3 10 ^3/uL (1.6-8.6); White Blood Cell 6.8 10^3/uL (4.4-10.8)
[2022-10-18 04:59] LABS: Basophils % (auto) 0.5 % (0.0-2.0); Eosinophils % (auto) 0.5 % (0.0-7.0); Hematocrit 24.8 % (41.0-53.0); Lymphocytes # (auto) 0.8 10 ^3/uL (0.4-5.4); Lymphocytes % (auto) 12.1 % (10.0-50.0); Mean Corpuscular Hemoglobin 31.6 pg (28.0-32.0); Mean Corpuscular Hgb Conc. 32.7 g/dL (32.0-36.0); Mean Corpuscular Volume 96.4 fL (80.0-100.0); Neutrophils % (auto) 77.9 % (37.0-80.0); Nucleated Red Blood Cells % 0.1 %; Red Blood Cells 2.57 10^6/uL (4.5-5.90); Red Cell Distribution Width 18.9 % (11.8-14.3)
[2022-10-18 05:08] LABS: BUN/Creatinine Ratio 50.7 (10.0-20.0); Calcium 8.7 mg/dL (8.5-10.1); Potassium 3.7 mmol/L (3.5-5.1)
[2022-10-18] MEDS: CARBIDOPA W LEVODOPA 25/100mg TABLET PO SCH ×5 (05:47→22:01)
[2022-10-18] MEDS: NYSTATIN (MOUTH-THROAT) 500,000 UNITS/5 ML SUSP MT SCH ×4 (05:47→22:00)
[2022-10-18] MEDS: PANTOPRAZOLE 40 MG/10 ML VIAL INJ IV SCH ×2 (09:10→22:01)
[2022-10-18] MEDS: CYANOCOBALAMIN 500 MCG TAB PO SCH (09:10)
[2022-10-18] MEDS: FOLIC ACID 1 MG TAB PO SCH (09:10)
[2022-10-18] MEDS: ENOXAPARIN SOD 40 MG/0.4 ML SYRINGE SC SCH ×2 (09:11→22:01)
[2022-10-18] MEDS: BUMETANIDE 1mg/4ml VIAL (0.25mg/ml) IV SCH (09:11)
[2022-10-18] MEDS: PYRIDOXINE HCL 50 MG TAB PO SCH (10:29)
[2022-10-19] VITALS (27 sets, daily range): BP systolic 125–154; BP diastolic 40–64; PULSE 60–61; RESP 16–44; TEMP 98.4–100.1; O2SAT 89–98
[2022-10-19 05:10] LABS: Basophils # (auto) 0 10 ^3/uL (0-0.2); Eosinophils # (auto) 0 10 ^3/uL (0-0.8); Red Blood Cells 2.59 10^6/uL (4.5-5.90)
[2022-10-19 05:12] LABS: Basophils % (auto) 0.2 % (0.0-2.0); Eosinophils % (auto) 0.4 % (0.0-7.0); Hemoglobin 8.1 g/dL (13.5-17.5); Lymphocytes % (auto) 10.4 % (10.0-50.0); Mean Corpuscular Hemoglobin 31.5 pg (28.0-32.0); Mean Corpuscular Hgb Conc. 32.6 g/dL (32.0-36.0); Mean Corpuscular Volume 96.6 fL (80.0-100.0); Monocytes # (auto) 0.9 10 ^3/uL (0-1.3); Monocytes % (auto) 8.9 % (0.0-12.0); Neutrophils # (auto) 7.9 10 ^3/uL (1.6-8.6); Neutrophils % (auto) 80.1 % (37.0-80.0); Red Cell Distribution Width 18.9 % (11.8-14.3); White Blood Cell 9.9 10^3/uL (4.4-10.8)
[2022-10-19 05:40] LABS: BUN/Creatinine Ratio 43.6 (10.0-20.0); Calcium 8.7 mg/dL (8.5-10.1); Potassium 3.8 mmol/L (3.5-5.1)
[2022-10-19] MEDS: CARBIDOPA W LEVODOPA 25/100mg TABLET PO SCH ×5 (06:33→21:10)
[2022-10-19] MEDS: NYSTATIN (MOUTH-THROAT) 500,000 UNITS/5 ML SUSP MT SCH ×4 (06:33→21:10)
[2022-10-19] MEDS: PANTOPRAZOLE 40 MG/10 ML VIAL INJ IV SCH ×2 (08:02→21:10)
[2022-10-19] MEDS: FOLIC ACID 1 MG TAB PO SCH (08:03)
[2022-10-19] MEDS: BUMETANIDE 1mg/4ml VIAL (0.25mg/ml) IV SCH (08:03)
[2022-10-19] MEDS: CYANOCOBALAMIN 500 MCG TAB PO SCH (08:03)
[2022-10-19] MEDS: ENOXAPARIN SOD 40 MG/0.4 ML SYRINGE SC SCH ×2 (08:03→21:10)
[2022-10-19] MEDS: PYRIDOXINE HCL 50 MG TAB PO SCH (08:03)
[2022-10-20] VITALS (22 sets, daily range): BP systolic 133–154; BP diastolic 52–58; PULSE 60; RESP 20–40; TEMP 97.4–99.1; O2SAT 90–100
[2022-10-20] MEDS: CARBIDOPA W LEVODOPA 25/100mg TABLET PO SCH ×5 (06:26→21:26)
[2022-10-20] MEDS: NYSTATIN (MOUTH-THROAT) 500,000 UNITS/5 ML SUSP MT SCH ×4 (06:26→21:26)
[2022-10-20] MEDS: PANTOPRAZOLE 40 MG/10 ML VIAL INJ IV SCH ×2 (07:10→21:26)
[2022-10-20] MEDS: BUMETANIDE 1mg/4ml VIAL (0.25mg/ml) IV SCH (07:10)
[2022-10-20] MEDS: ENOXAPARIN SOD 40 MG/0.4 ML SYRINGE SC SCH ×2 (07:10→21:26)
[2022-10-20] MEDS: PYRIDOXINE HCL 50 MG TAB PO SCH (07:11)
[2022-10-20] MEDS: CYANOCOBALAMIN 500 MCG TAB PO SCH (07:12)
[2022-10-20] MEDS: FOLIC ACID 1 MG TAB PO SCH (07:12)
[2022-10-21] VITALS (34 sets, daily range): BP systolic 130–167; BP diastolic 52–70; PULSE 59–68; RESP 20–38; TEMP 98.4–99.4; O2SAT 87–99
[2022-10-21] MEDS: NYSTATIN (MOUTH-THROAT) 500,000 UNITS/5 ML SUSP MT SCH ×4 (04:56→21:00)
[2022-10-21] MEDS: CARBIDOPA W LEVODOPA 25/100mg TABLET PO SCH ×5 (04:56→21:00)
[2022-10-21 05:18] LABS: Basophils # (auto) 0 10 ^3/uL (0-0.2); Basophils % (auto) 0.2 % (0.0-2.0); Eosinophils # (auto) 0 10 ^3/uL (0-0.8); Eosinophils % (auto) 0.3 % (0.0-7.0); Hemoglobin 8.3 g/dL (13.5-17.5); Lymphocytes # (auto) 0.8 10 ^3/uL (0.4-5.4); Monocytes # (auto) 0.6 10 ^3/uL (0-1.3); White Blood Cell 9.4 10^3/uL (4.4-10.8)
[2022-10-21 05:20] LABS: Hematocrit 25.4 % (41.0-53.0); Lymphocytes % (auto) 8.3 % (10.0-50.0); Mean Corpuscular Hemoglobin 31.8 pg (28.0-32.0); Mean Corpuscular Hgb Conc. 32.7 g/dL (32.0-36.0); Mean Corpuscular Volume 97.1 fL (80.0-100.0); Monocytes % (auto) 6.8 % (0.0-12.0); Neutrophils # (auto) 7.9 10 ^3/uL (1.6-8.6); Neutrophils % (auto) 84.4 % (37.0-80.0); Red Blood Cells 2.62 10^6/uL (4.5-5.90); Red Cell Distribution Width 19.1 % (11.8-14.3)
[2022-10-21 05:32] LABS: Calcium 8.7 mg/dL (8.5-10.1); Potassium 3.6 mmol/L (3.5-5.1)
[2022-10-21 05:34] LABS: BUN/Creatinine Ratio 43.4 (10.0-20.0)
[2022-10-21] MEDS: PANTOPRAZOLE 40 MG/10 ML VIAL INJ IV SCH ×2 (09:45→21:00)
[2022-10-21] MEDS: BUMETANIDE 1mg/4ml VIAL (0.25mg/ml) IV SCH (09:45)
[2022-10-21] MEDS: FOLIC ACID 1 MG TAB PO SCH (09:45)
[2022-10-21] MEDS: PYRIDOXINE HCL 50 MG TAB PO SCH (09:45)
[2022-10-21] MEDS: CYANOCOBALAMIN 500 MCG TAB PO SCH (09:45)
[2022-10-21] MEDS: ENOXAPARIN SOD 40 MG/0.4 ML SYRINGE SC SCH ×2 (09:46→21:00)
[2022-10-21] MEDS: FREE WATER GT SCH ×3 (12:00→23:26)
[2022-10-21] MEDS: Jevity 1.2 Cal/Fiber 1 Liter GT SCH (17:36)
[2022-10-22] VITALS (19 sets, daily range): BP systolic 129–153; BP diastolic 52–86; PULSE 60; RESP 18–39; TEMP 97.4–99.7; O2SAT 90–100
[2022-10-22] MEDS: FREE WATER GT SCH ×3 (05:57→18:00)
[2022-10-22] MEDS: NYSTATIN (MOUTH-THROAT) 500,000 UNITS/5 ML SUSP MT SCH ×4 (05:57→21:31)
[2022-10-22] MEDS: CARBIDOPA W LEVODOPA 25/100mg TABLET PO SCH ×5 (05:57→21:31)
[2022-10-22 06:24] LABS: Potassium 3.1 mmol/L (3.5-5.1)
[2022-10-22 06:35] LABS: BUN/Creatinine Ratio 51.9 (10.0-20.0); Calcium 8.3 mg/dL (8.5-10.1)
[2022-10-22 08:05] LABS: Basophils # (auto) 0 10 ^3/uL (0-0.2); Eosinophils # (auto) 0 10 ^3/uL (0-0.8); Mean Corpuscular Hgb Conc. 32.8 g/dL (32.0-36.0); Monocytes # (auto) 0.6 10 ^3/uL (0-1.3)
[2022-10-22 08:06] LABS: Basophils % (auto) 0.2 % (0.0-2.0); Eosinophils % (auto) 0.4 % (0.0-7.0); Hematocrit 24.5 % (41.0-53.0); Lymphocytes # (auto) 0.8 10 ^3/uL (0.4-5.4); Mean Corpuscular Volume 97.7 fL (80.0-100.0); Monocytes % (auto) 5.7 % (0.0-12.0); Neutrophils # (auto) 8.5 10 ^3/uL (1.6-8.6); Neutrophils % (auto) 85.7 % (37.0-80.0); Nucleated Red Blood Cells % 0.1 %; Red Blood Cells 2.51 10^6/uL (4.5-5.90); Red Cell Distribution Width 18.5 % (11.8-14.3); White Blood Cell 9.9 10^3/uL (4.4-10.8)
[2022-10-22] MEDS: PANTOPRAZOLE 40 MG/10 ML VIAL INJ IV SCH ×2 (10:11→21:31)
[2022-10-22] MEDS: CYANOCOBALAMIN 500 MCG TAB PO SCH (10:11)
[2022-10-22] MEDS: ENOXAPARIN SOD 40 MG/0.4 ML SYRINGE SC SCH ×2 (10:11→21:31)
[2022-10-22] MEDS: PYRIDOXINE HCL 50 MG TAB PO SCH (10:11)
[2022-10-22] MEDS: FOLIC ACID 1 MG TAB PO SCH (10:11)
[2022-10-22] MEDS: BUMETANIDE 1mg/4ml VIAL (0.25mg/ml) IV SCH (10:12)
[2022-10-22] MEDS ORDERED: POTASSIUM CHLORIDE 60 MEQ, LIDOCAINE 1% (LOCAL ANESTH.) 6 ML in SODIUM CHL 0.9% 500 ML IV ONE (11:00)
[2022-10-23] VITALS (30 sets, daily range): BP systolic 99–143; BP diastolic 46–63; PULSE 60–65; RESP 10–95; TEMP 97.8–100.2; O2SAT 93–100
[2022-10-23] MEDS: FREE WATER GT SCH ×4 (00:20→18:58)
[2022-10-23 05:03] LABS: Basophils # (auto) 0 10 ^3/uL (0-0.2); Eosinophils # (auto) 0 10 ^3/uL (0-0.8); Eosinophils % (auto) 0.2 % (0.0-7.0); Hematocrit 29.7 % (41.0-53.0); Hemoglobin 9.4 g/dL (13.5-17.5); Lymphocytes # (auto) 0.9 10 ^3/uL (0.4-5.4); Lymphocytes % (auto) 6.6 % (10.0-50.0); Mean Corpuscular Hemoglobin 30.8 pg (28.0-32.0); Mean Corpuscular Hgb Conc. 31.6 g/dL (32.0-36.0); Mean Corpuscular Volume 97.2 fL (80.0-100.0); Monocytes # (auto) 0.8 10 ^3/uL (0-1.3); Monocytes % (auto) 5.5 % (0.0-12.0); Neutrophils % (auto) 87.7 % (37.0-80.0); Red Blood Cells 3.05 10^6/uL (4.5-5.90); Red Cell Distribution Width 18.1 % (11.8-14.3); White Blood Cell 13.7 10^3/uL (4.4-10.8)
[2022-10-23 05:22] LABS: Calcium 8.5 mg/dL (8.5-10.1); Potassium 4.1 mmol/L (3.5-5.1)
[2022-10-23 05:25] LABS: BUN/Creatinine Ratio 57.3 (10.0-20.0)
[2022-10-23] MEDS: NYSTATIN (MOUTH-THROAT) 500,000 UNITS/5 ML SUSP MT SCH ×3 (05:58→18:58)
[2022-10-23] MEDS: CARBIDOPA W LEVODOPA 25/100mg TABLET PO SCH ×5 (05:58→21:31)
[2022-10-23] MEDS: BUMETANIDE 1mg/4ml VIAL (0.25mg/ml) IV SCH (09:44)
[2022-10-23] MEDS: PANTOPRAZOLE 40 MG/10 ML VIAL INJ IV SCH ×2 (09:45→21:30)
[2022-10-23] MEDS: FOLIC ACID 1 MG TAB PO SCH (09:45)
[2022-10-23] MEDS: CYANOCOBALAMIN 500 MCG TAB PO SCH (09:45)
[2022-10-23] MEDS: PYRIDOXINE HCL 50 MG TAB PO SCH (09:45)
[2022-10-23] MEDS: ENOXAPARIN SOD 40 MG/0.4 ML SYRINGE SC SCH ×2 (09:46→21:31)
[2022-10-23] MEDS: D5W 5% 1,000 ML IV SCH (14:48)
[2022-10-24] VITALS (76 sets, daily range): BP systolic 82–143; BP diastolic 26–69; PULSE 60–76; RESP 7–32; TEMP 97.9–99.1; O2SAT 70–100
[2022-10-24] MEDS: FREE WATER GT SCH ×4 (06:00→18:18)
[2022-10-24] MEDS: CARBIDOPA W LEVODOPA 25/100mg TABLET PO SCH ×5 (06:00→22:05)
[2022-10-24 07:03] LABS: Basophils # (auto) 0 10 ^3/uL (0-0.2); Eosinophils # (auto) 0.1 10 ^3/uL (0-0.8); Hemoglobin 9.5 g/dL (13.5-17.5); White Blood Cell 13.8 10^3/uL (4.4-10.8)
[2022-10-24 07:05] LABS: Basophils % (auto) 0.3 % (0.0-2.0); Eosinophils % (auto) 0.4 % (0.0-7.0); Hematocrit 31.5 % (41.0-53.0); Lymphocytes # (auto) 0.9 10 ^3/uL (0.4-5.4); Lymphocytes % (auto) 6.6 % (10.0-50.0); Mean Corpuscular Hemoglobin 30.8 pg (28.0-32.0); Mean Corpuscular Hgb Conc. 30.2 g/dL (32.0-36.0); Monocytes # (auto) 0.8 10 ^3/uL (0-1.3); Monocytes % (auto) 5.9 % (0.0-12.0); Neutrophils % (auto) 86.8 % (37.0-80.0); Red Blood Cells 3.09 10^6/uL (4.5-5.90); Red Cell Distribution Width 18.6 % (11.8-14.3)
[2022-10-24 07:14] LABS: BUN/Creatinine Ratio 62.1 (10.0-20.0); Calcium 8.2 mg/dL (8.5-10.1); Potassium 3.6 mmol/L (3.5-5.1)
[2022-10-24] MEDS: D5W 5% 1,000 ML IV SCH ×3 (09:30→18:18)
[2022-10-24] MEDS ORDERED: fentaNYL Drip 2500mCg/250mlNS 250 ML IV ONE (09:43)
[2022-10-24] MEDS ORDERED: NOREPINEPHRINE 8 MG/250ML KIT 250 ML IV ONE (09:44)
[2022-10-24] MEDS ORDERED: MIDAZOLAM DRIP 50 mg/50mL 50 ML IV ONE (09:44)
[2022-10-24 09:59] LABS: Base Excess -5.8 mmol/L (-2.0-2.0)
[2022-10-24] MEDS: ENOXAPARIN SOD 40 MG/0.4 ML SYRINGE SC SCH ×3 (10:00→22:04)
[2022-10-24] MEDS: BUMETANIDE 1mg/4ml VIAL (0.25mg/ml) IV SCH (10:00)
[2022-10-24 10:49] LABS: INR 1.05 (0.9-1.15); Partial Thromboplastin Time 24.3 SEC (24.5-34.5)
[2022-10-24] MEDS ORDERED: MEROPENEM 1GM IVPB 100 ML IV SCH (14:00)
[2022-10-24] MEDS: PANTOPRAZOLE 40 MG/10 ML VIAL INJ IV SCH ×2 (14:37→22:04)
[2022-10-24] MEDS: FOLIC ACID 1 MG TAB PO SCH (14:38)
[2022-10-24] MEDS: PYRIDOXINE HCL 50 MG TAB PO SCH (14:38)
[2022-10-24] MEDS: CYANOCOBALAMIN 500 MCG TAB PO SCH (14:39)
[2022-10-24] MEDS: NOREPINEPHRINE 8 MG/250ML KIT 250 ML IV SCH ×2 (14:40→21:14)
[2022-10-24] MEDS: MIDAZOLAM DRIP 50 mg/50mL 50 ML IV SCH (14:40)
[2022-10-24] MEDS: IPRATROPIUM BROM 0.5 MG/2.5ML INH SOL NEB SCH ×3 (15:10→22:18)
[2022-10-24] MEDS: ALBUTEROL SULF 2.5 MG/0.5ML(0.5%) NEB SOLN NEB SCH ×3 (15:10→22:18)
[2022-10-24] MEDS: ACETYLCYSTEINE 10 %(100MG/ML) SOL 4ML IN SCH ×2 (15:10→22:18)
[2022-10-24] MEDS: CeftoloZANE-TAZOB 3 GM in D5W 5% 100 ML IV SCH ×2 (16:20→22:05)
[2022-10-24] MEDS: fentaNYL Drip 2500mCg/250mlNS 250 ML IV SCH (16:32)
[2022-10-25] VITALS (102 sets, daily range): BP systolic 95–160; BP diastolic 20–57; PULSE 59–91; RESP 9–28; TEMP 97.2–98.8; O2SAT 99–100
[2022-10-25] MEDS: FREE WATER GT SCH ×4 (00:19→17:59)
[2022-10-25] MEDS: ALBUTEROL SULF 2.5 MG/0.5ML(0.5%) NEB SOLN NEB SCH ×6 (02:55→22:13)
[2022-10-25] MEDS: IPRATROPIUM BROM 0.5 MG/2.5ML INH SOL NEB SCH ×6 (02:55→22:13)
[2022-10-25] MEDS: CeftoloZANE-TAZOB 3 GM in D5W 5% 100 ML IV SCH ×3 (05:35→22:03)
[2022-10-25] MEDS: D5W 5% 1,000 ML IV SCH ×2 (05:35→09:42)
[2022-10-25] MEDS: CARBIDOPA W LEVODOPA 25/100mg TABLET PO SCH ×5 (05:35→22:04)
[2022-10-25 06:21] LABS: Base Excess -6.5 mmol/L (-2.0-2.0)
[2022-10-25] MEDS: ACETYLCYSTEINE 10 %(100MG/ML) SOL 4ML IN SCH ×3 (06:35→22:13)
[2022-10-25] MEDS: NOREPINEPHRINE 8 MG/250ML KIT 250 ML IV SCH ×2 (07:04→17:59)
[2022-10-25] MEDS: PANTOPRAZOLE 40 MG/10 ML VIAL INJ IV SCH ×2 (09:15→22:03)
[2022-10-25] MEDS: CYANOCOBALAMIN 500 MCG TAB PO SCH (09:15)
[2022-10-25] MEDS: BUMETANIDE 1mg/4ml VIAL (0.25mg/ml) IV SCH (09:16)
[2022-10-25] MEDS: FOLIC ACID 1 MG TAB PO SCH (09:16)
[2022-10-25] MEDS: ENOXAPARIN SOD 40 MG/0.4 ML SYRINGE SC SCH ×2 (09:16→22:04)
[2022-10-25] MEDS: PYRIDOXINE HCL 50 MG TAB PO SCH (09:20)
[2022-10-25] MEDS: fentaNYL Drip 2500mCg/250mlNS 250 ML IV SCH (09:45)
[2022-10-25] MEDS: MIDAZOLAM DRIP 50 mg/50mL 50 ML IV SCH (09:45)
[2022-10-25 10:24] LABS: Basophils # (auto) 0 10 ^3/uL (0-0.2); Basophils % (auto) 0.2 % (0.0-2.0); Eosinophils # (auto) 0.1 10 ^3/uL (0-0.8); Eosinophils % (auto) 0.3 % (0.0-7.0); Hematocrit 26.2 % (41.0-53.0); Hemoglobin 8.5 g/dL (13.5-17.5); Lymphocytes % (auto) 5.4 % (10.0-50.0); Mean Corpuscular Hemoglobin 31.4 pg (28.0-32.0); Mean Corpuscular Hgb Conc. 32.6 g/dL (32.0-36.0); Mean Corpuscular Volume 96.2 fL (80.0-100.0); Monocytes # (auto) 1.2 10 ^3/uL (0-1.3); Monocytes % (auto) 6.4 % (0.0-12.0); Neutrophils # (auto) 16.8 10 ^3/uL (1.6-8.6); Neutrophils % (auto) 87.7 % (37.0-80.0); Red Blood Cells 2.72 10^6/uL (4.5-5.90); Red Cell Distribution Width 18.4 % (11.8-14.3); White Blood Cell 19.2 10^3/uL (4.4-10.8)
[2022-10-25 10:36] LABS: Calcium 7.2 mg/dL (8.5-10.1); Potassium 3.7 mmol/L (3.5-5.1)
[2022-10-25 12:04] LABS: Base Excess -5.8 mmol/L (-2.0-2.0)
[2022-10-25] MEDS: DOPamine 1600MCG/ML D5W 250 ML IV SCH (13:20)
[2022-10-25 17:17] LABS: Sodium Urine 21 mmol/L (40-220)
[2022-10-25 17:19] LABS: Creatinine, Urine 67 mg/dL (30.0-125.0)
[2022-10-25 17:20] LABS: Protein, Urine 109.8 mg/dL (0.0-11.9); Urine Protein/Creatinine Ratio 1.66
[2022-10-26] VITALS (107 sets, daily range): BP systolic 103–185; BP diastolic 25–54; PULSE 59–63; RESP 9–37; TEMP 98.3–99.4; O2SAT 92–100
[2022-10-26] MEDS: IPRATROPIUM BROM 0.5 MG/2.5ML INH SOL NEB SCH ×6 (02:08→22:01)
[2022-10-26] MEDS: ALBUTEROL SULF 2.5 MG/0.5ML(0.5%) NEB SOLN NEB SCH ×6 (02:08→22:01)
[2022-10-26] MEDS: FREE WATER GT SCH ×4 (02:09→18:15)
[2022-10-26] MEDS: NOREPINEPHRINE 8 MG/250ML KIT 250 ML IV SCH (03:02)
[2022-10-26] MEDS: CeftoloZANE-TAZOB 3 GM in D5W 5% 100 ML IV SCH ×3 (05:21→22:21)
[2022-10-26] MEDS: CARBIDOPA W LEVODOPA 25/100mg TABLET PO SCH ×5 (05:21→22:17)
[2022-10-26] MEDS: ACETYLCYSTEINE 10 %(100MG/ML) SOL 4ML IN SCH ×3 (06:11→22:01)
[2022-10-26 06:36] LABS: Base Excess -5.4 mmol/L (-2.0-2.0)
[2022-10-26 06:57] LABS: Basophils # (auto) 0 10 ^3/uL (0-0.2); Basophils % (auto) 0.2 % (0.0-2.0); Eosinophils # (auto) 0.1 10 ^3/uL (0-0.8); Hemoglobin 7.3 g/dL (13.5-17.5); Lymphocytes # (auto) 0.7 10 ^3/uL (0.4-5.4); Monocytes # (auto) 0.8 10 ^3/uL (0-1.3)
[2022-10-26 07:03] LABS: Eosinophils % (auto) 1.1 % (0.0-7.0); Lymphocytes % (auto) 5.6 % (10.0-50.0); Mean Corpuscular Hemoglobin 31.4 pg (28.0-32.0); Mean Corpuscular Hgb Conc. 33.3 g/dL (32.0-36.0); Mean Corpuscular Volume 94.3 fL (80.0-100.0); Monocytes % (auto) 6.6 % (0.0-12.0); Neutrophils # (auto) 10.4 10 ^3/uL (1.6-8.6); Neutrophils % (auto) 86.5 % (37.0-80.0); Red Blood Cells 2.33 10^6/uL (4.5-5.90); Red Cell Distribution Width 17.8 % (11.8-14.3)
[2022-10-26] MEDS: MIDAZOLAM DRIP 50 mg/50mL 50 ML IV SCH (07:27)
[2022-10-26] MEDS: fentaNYL Drip 2500mCg/250mlNS 250 ML IV SCH (07:27)
[2022-10-26 07:59] LABS: Potassium 3.4 mmol/L (3.5-5.1)
[2022-10-26 08:05] LABS: BUN/Creatinine Ratio 51.4 (10.0-20.0); Calcium 7.5 mg/dL (8.5-10.1); Phosphorus 2.8 mg/dL (2.5-4.90)
[2022-10-26] MEDS: ENOXAPARIN SOD 40 MG/0.4 ML SYRINGE SC SCH (08:14)
[2022-10-26] MEDS: PYRIDOXINE HCL 50 MG TAB PO SCH (08:14)
[2022-10-26] MEDS: CYANOCOBALAMIN 500 MCG TAB PO SCH (08:14)
[2022-10-26] MEDS: PANTOPRAZOLE 40 MG/10 ML VIAL INJ IV SCH ×2 (08:14→22:17)
[2022-10-26] MEDS: FOLIC ACID 1 MG TAB PO SCH (08:15)
[2022-10-26] MEDS ORDERED: POTASSIUM CHL 20MEQ/100ML 100 ML IV SCH (11:30)
[2022-10-26] MEDS: DOPamine 1600MCG/ML D5W 250 ML IV SCH (12:45)
[2022-10-26] MEDS: POTASSIUM CHL 20MEQ/100ML 100 ML IV SCH ×2 (13:33→16:27)
[2022-10-27] VITALS (99 sets, daily range): BP systolic 99–140; BP diastolic 40–60; PULSE 59–74; RESP 14–33; TEMP 98.2–98.5; O2SAT 93–100
[2022-10-27] MEDS: IPRATROPIUM BROM 0.5 MG/2.5ML INH SOL NEB SCH ×6 (02:08→22:36)
[2022-10-27] MEDS: ALBUTEROL SULF 2.5 MG/0.5ML(0.5%) NEB SOLN NEB SCH ×6 (02:08→22:36)
[2022-10-27] MEDS: NOREPINEPHRINE 8 MG/250ML KIT 250 ML IV SCH (03:45)
[2022-10-27 03:54] LABS: Basophils # (auto) 0 10 ^3/uL (0-0.2); Basophils % (auto) 0.1 % (0.0-2.0); Eosinophils # (auto) 0 10 ^3/uL (0-0.8); Eosinophils % (auto) 0.7 % (0.0-7.0); Hematocrit 21.6 % (41.0-53.0); Hemoglobin 7.3 g/dL (13.5-17.5); Lymphocytes # (auto) 0.4 10 ^3/uL (0.4-5.4); Lymphocytes % (auto) 5.2 % (10.0-50.0); Mean Corpuscular Hemoglobin 31.7 pg (28.0-32.0); Mean Corpuscular Hgb Conc. 33.8 g/dL (32.0-36.0); Mean Corpuscular Volume 93.7 fL (80.0-100.0); Monocytes # (auto) 0.5 10 ^3/uL (0-1.3); Monocytes % (auto) 6.7 % (0.0-12.0); Neutrophils # (auto) 6.5 10 ^3/uL (1.6-8.6); Neutrophils % (auto) 87.3 % (37.0-80.0); Nucleated Red Blood Cells % 0.1 %; Red Blood Cells 2.31 10^6/uL (4.5-5.90); Red Cell Distribution Width 17.8 % (11.8-14.3); White Blood Cell 7.4 10^3/uL (4.4-10.8)
[2022-10-27 04:10] LABS: Albumin 2.2 g/dL (3.4-5.0); Potassium 3.8 mmol/L (3.5-5.1)
[2022-10-27 04:13] LABS: Bilirubin, Total 0.4 mg/dL (0.2-1.0); Phosphorus 2.3 mg/dL (2.5-4.90)
[2022-10-27] MEDS: CARBIDOPA W LEVODOPA 25/100mg TABLET PO SCH ×5 (05:36→22:03)
[2022-10-27] MEDS: CeftoloZANE-TAZOB 3 GM in D5W 5% 100 ML IV SCH ×3 (05:37→22:03)
[2022-10-27] MEDS: FREE WATER GT SCH ×4 (05:37→18:12)
[2022-10-27] MEDS: ACETYLCYSTEINE 10 %(100MG/ML) SOL 4ML IN SCH ×3 (06:14→18:35)
[2022-10-27 07:39] LABS: Base Excess -3.3 mmol/L (-2.0-2.0)
[2022-10-27] MEDS: DOPamine 1600MCG/ML D5W 250 ML IV SCH (08:43)
[2022-10-27] MEDS: fentaNYL Drip 2500mCg/250mlNS 250 ML IV SCH (09:45)
[2022-10-27] MEDS: MIDAZOLAM DRIP 50 mg/50mL 50 ML IV SCH (09:45)
[2022-10-27] MEDS: PANTOPRAZOLE 40 MG/10 ML VIAL INJ IV SCH ×2 (10:01→22:03)
[2022-10-27] MEDS: FOLIC ACID 1 MG TAB PO SCH (10:01)
[2022-10-27] MEDS: CYANOCOBALAMIN 500 MCG TAB PO SCH (10:01)
[2022-10-27] MEDS: PYRIDOXINE HCL 50 MG TAB PO SCH (10:02)
[2022-10-27] MEDS: Jevity 1.2 Cal/Fiber 1 Liter GT SCH (17:32)
[2022-10-28] VITALS (97 sets, daily range): BP systolic 125–173; BP diastolic 36–58; PULSE 60–67; RESP 9–36; TEMP 97.9–98.8; O2SAT 94–100
[2022-10-28] MEDS: FREE WATER GT SCH ×4 (00:17→17:30)
[2022-10-28] MEDS: ALBUTEROL SULF 2.5 MG/0.5ML(0.5%) NEB SOLN NEB SCH ×6 (02:28→22:00)
[2022-10-28] MEDS: IPRATROPIUM BROM 0.5 MG/2.5ML INH SOL NEB SCH ×6 (02:28→22:00)
[2022-10-28 04:10] LABS: Basophils # (auto) 0 10 ^3/uL (0-0.2); Basophils % (auto) 0.3 % (0.0-2.0); Lymphocytes # (auto) 0.7 10 ^3/uL (0.4-5.4)
[2022-10-28 04:13] LABS: Eosinophils # (auto) 0.1 10 ^3/uL (0-0.8); Lymphocytes % (auto) 12.2 % (10.0-50.0); Mean Corpuscular Hemoglobin 31.3 pg (28.0-32.0); Mean Corpuscular Hgb Conc. 33.2 g/dL (32.0-36.0); Mean Corpuscular Volume 94.5 fL (80.0-100.0); Monocytes # (auto) 0.5 10 ^3/uL (0-1.3); Monocytes % (auto) 8.2 % (0.0-12.0); Neutrophils # (auto) 4.5 10 ^3/uL (1.6-8.6); Neutrophils % (auto) 78.3 % (37.0-80.0); Red Blood Cells 2.22 10^6/uL (4.5-5.90); Red Cell Distribution Width 17.5 % (11.8-14.3); White Blood Cell 5.7 10^3/uL (4.4-10.8)
[2022-10-28 04:23] LABS: Potassium 4.1 mmol/L (3.5-5.1)
[2022-10-28 04:30] LABS: BUN/Creatinine Ratio 54.8 (10.0-20.0); Calcium 8.2 mg/dL (8.5-10.1)
[2022-10-28] MEDS: CeftoloZANE-TAZOB 3 GM in D5W 5% 100 ML IV SCH ×3 (06:00→22:39)
[2022-10-28] MEDS: ACETYLCYSTEINE 10 %(100MG/ML) SOL 4ML IN SCH ×3 (06:28→22:00)
[2022-10-28] MEDS: CARBIDOPA W LEVODOPA 25/100mg TABLET PO SCH ×5 (06:49→22:39)
[2022-10-28] MEDS: NOREPINEPHRINE 8 MG/250ML KIT 250 ML IV SCH (09:45)
[2022-10-28] MEDS: MIDAZOLAM DRIP 50 mg/50mL 50 ML IV SCH (09:45)
[2022-10-28] MEDS: fentaNYL Drip 2500mCg/250mlNS 250 ML IV SCH (09:45)
[2022-10-28] MEDS: PANTOPRAZOLE 40 MG/10 ML VIAL INJ IV SCH ×2 (09:55→22:39)
[2022-10-28] MEDS: PYRIDOXINE HCL 50 MG TAB PO SCH (09:56)
[2022-10-28] MEDS: FOLIC ACID 1 MG TAB PO SCH (09:56)
[2022-10-28] MEDS: CYANOCOBALAMIN 500 MCG TAB PO SCH (09:56)
[2022-10-28] MEDS ORDERED: SODIUM FERR GLUC 62.5MG/5ML 125 MG in SODIUM CHL 0.9% 100 ML IV SCH (12:00)
[2022-10-28 12:03] LABS: Urine Bacteria NONE SEEN /hpf (None Seen); Urine Blood 2+ /uL (Negative); Urine Budding Yeast FEW /hpf (None Seen); Urine Clarity HAZY (Clear); Urine Color Yellow (Yellow); Urine Mucus FEW (None Seen); Urine Protein, UAD 1+ (Negative); Urine Specific Gravity 1.018 (1.001-1.035); Urine Urobilinogen Normal (Negative); Urine WBC 310 /hpf (0 - 3); Urine WBC Clumps PRESENT /hpf (None Seen); Urine pH 5.5 (5.0-8.0)
[2022-10-28] MEDS: IRON SUCROSE COMPLEX 200 MG in SODIUM CHL 0.9% 100 ML IV SCH (12:58)
[2022-10-28] MEDS ORDERED: hydrALAZINE HCL 20 MG/ML VL IV PRN (23:45)
[2022-10-29] VITALS (99 sets, daily range): BP systolic 83–187; BP diastolic 47–93; PULSE 59–114; RESP 10–41; TEMP 97.2–98.6; O2SAT 97–100
[2022-10-29] MEDS: FREE WATER GT SCH ×4 (00:14→18:01)
[2022-10-29] MEDS: ALBUTEROL SULF 2.5 MG/0.5ML(0.5%) NEB SOLN NEB SCH ×6 (02:04→22:27)
[2022-10-29] MEDS: IPRATROPIUM BROM 0.5 MG/2.5ML INH SOL NEB SCH ×6 (02:04→22:27)
[2022-10-29 04:57] LABS: Basophils # (auto) 0 10 ^3/uL (0-0.2); Basophils % (auto) 0.4 % (0.0-2.0); Eosinophils % (auto) 0.8 % (0.0-7.0); Mean Corpuscular Hgb Conc. 33.6 g/dL (32.0-36.0); Monocytes # (auto) 0.5 10 ^3/uL (0-1.3); Neutrophils # (auto) 4.8 10 ^3/uL (1.6-8.6); White Blood Cell 6.1 10^3/uL (4.4-10.8)
[2022-10-29 05:00] LABS: Eosinophils # (auto) 0 10 ^3/uL (0-0.8); Hematocrit 21.1 % (41.0-53.0); Hemoglobin 7.1 g/dL (13.5-17.5); Lymphocytes # (auto) 0.8 10 ^3/uL (0.4-5.4); Lymphocytes % (auto) 12.4 % (10.0-50.0); Mean Corpuscular Hemoglobin 31.9 pg (28.0-32.0); Mean Corpuscular Volume 94.9 fL (80.0-100.0); Monocytes % (auto) 7.6 % (0.0-12.0); Neutrophils % (auto) 78.8 % (37.0-80.0); Red Blood Cells 2.22 10^6/uL (4.5-5.90); Red Cell Distribution Width 17.6 % (11.8-14.3)
[2022-10-29 05:14] LABS: BUN/Creatinine Ratio 47.5 (10.0-20.0); Calcium 7.8 mg/dL (8.7-10.4); Potassium 4.7 mmol/L (3.5-5.1)
[2022-10-29] MEDS: CeftoloZANE-TAZOB 3 GM in D5W 5% 100 ML IV SCH ×3 (05:49→22:10)
[2022-10-29] MEDS: CARBIDOPA W LEVODOPA 25/100mg TABLET PO SCH ×5 (05:50→22:10)
[2022-10-29] MEDS: ACETYLCYSTEINE 10 %(100MG/ML) SOL 4ML IN SCH ×3 (06:17→22:27)
[2022-10-29] MEDS: CYANOCOBALAMIN 500 MCG TAB PO SCH (08:14)
[2022-10-29] MEDS: FOLIC ACID 1 MG TAB PO SCH (08:14)
[2022-10-29] MEDS: PANTOPRAZOLE 40 MG/10 ML VIAL INJ IV SCH ×2 (08:14→22:10)
[2022-10-29] MEDS: PYRIDOXINE HCL 50 MG TAB PO SCH (12:42)
[2022-10-29] MEDS: IRON SUCROSE COMPLEX 200 MG in SODIUM CHL 0.9% 100 ML IV SCH (13:07)
[2022-10-30] VITALS (42 sets, daily range): BP systolic 153–178; BP diastolic 56–75; PULSE 32–69; RESP 16–42; TEMP 96.3–98.7; O2SAT 10–100
[2022-10-30] MEDS: IPRATROPIUM BROM 0.5 MG/2.5ML INH SOL NEB SCH ×6 (02:04→22:35)
[2022-10-30] MEDS: ALBUTEROL SULF 2.5 MG/0.5ML(0.5%) NEB SOLN NEB SCH ×6 (02:04→22:35)
[2022-10-30 05:05] LABS: Basophils # (auto) 0 10 ^3/uL (0-0.2); Basophils % (auto) 0.3 % (0.0-2.0); Hemoglobin 7.1 g/dL (13.5-17.5); Lymphocytes # (auto) 0.9 10 ^3/uL (0.4-5.4); Neutrophils # (auto) 5.4 10 ^3/uL (1.6-8.6); White Blood Cell 6.8 10^3/uL (4.4-10.8)
[2022-10-30 05:08] LABS: Eosinophils # (auto) 0 10 ^3/uL (0-0.8); Eosinophils % (auto) 0.5 % (0.0-7.0); Hematocrit 21.4 % (41.0-53.0); Lymphocytes % (auto) 13.6 % (10.0-50.0); Mean Corpuscular Hemoglobin 31.4 pg (28.0-32.0); Mean Corpuscular Hgb Conc. 32.9 g/dL (32.0-36.0); Mean Corpuscular Volume 95.4 fL (80.0-100.0); Monocytes # (auto) 0.4 10 ^3/uL (0-1.3); Monocytes % (auto) 6.5 % (0.0-12.0); Neutrophils % (auto) 79.1 % (37.0-80.0); Red Blood Cells 2.24 10^6/uL (4.5-5.90)
[2022-10-30 05:15] LABS: Chloride 113 mmol/L (98-107); Potassium 4.8 mmol/L (3.5-5.1); Sodium 142 mmol/L (136-145)
[2022-10-30 05:16] LABS: Anion Gap 3.7 (5-15); Calcium 7.7 mg/dL (8.5-10.1); Carbon Dioxide 25.3 mmol/L (20-30)
[2022-10-30 05:21] LABS: BUN/Creatinine Ratio 37.3 (10.0-20.0); Blood Urea Nitrogen 22 mg/dL (9-23); Glucose 136 mg/dL (74-106)
[2022-10-30] MEDS: FREE WATER GT SCH ×4 (05:32→16:58)
[2022-10-30] MEDS: CARBIDOPA W LEVODOPA 25/100mg TABLET PO SCH ×5 (05:35→20:12)
[2022-10-30] MEDS: CeftoloZANE-TAZOB 3 GM in D5W 5% 100 ML IV SCH ×3 (05:35→20:12)
[2022-10-30] MEDS: ACETYLCYSTEINE 10 %(100MG/ML) SOL 4ML IN SCH ×3 (07:14→22:34)
[2022-10-30] MEDS: CYANOCOBALAMIN 500 MCG TAB PO SCH (08:54)
[2022-10-30] MEDS: FOLIC ACID 1 MG TAB PO SCH (08:54)
[2022-10-30] MEDS: PYRIDOXINE HCL 50 MG TAB PO SCH (08:54)
[2022-10-30] MEDS: PANTOPRAZOLE 40 MG/10 ML VIAL INJ IV SCH ×2 (08:54→20:12)
[2022-10-30] MEDS: hydrALAZINE HCL 20 MG/ML VL IV PRN ×2 (10:27→16:57)
[2022-10-30] MEDS: IRON SUCROSE COMPLEX 200 MG in SODIUM CHL 0.9% 100 ML IV SCH (11:54)
[2022-10-31] VITALS (29 sets, daily range): BP systolic 133–162; BP diastolic 46–66; PULSE 60–70; RESP 11–43; TEMP 97.1–98.7; O2SAT 99–100
[2022-10-31] MEDS: FREE WATER GT SCH ×4 (00:06→15:21)
[2022-10-31] MEDS: ALBUTEROL SULF 2.5 MG/0.5ML(0.5%) NEB SOLN NEB SCH ×6 (02:45→22:30)
[2022-10-31] MEDS: IPRATROPIUM BROM 0.5 MG/2.5ML INH SOL NEB SCH ×6 (02:45→22:30)
[2022-10-31] MEDS: CARBIDOPA W LEVODOPA 25/100mg TABLET PO SCH ×5 (04:49→21:53)
[2022-10-31] MEDS: CeftoloZANE-TAZOB 3 GM in D5W 5% 100 ML IV SCH ×3 (04:50→21:53)
[2022-10-31] MEDS: hydrALAZINE HCL 20 MG/ML VL IV PRN (04:57)
[2022-10-31 05:13] LABS: Anion Gap 5.2 (5-15); Carbon Dioxide 23.8 mmol/L (20-30); Chloride 112 mmol/L (98-107); Potassium 4.7 mmol/L (3.5-5.1); Sodium 141 mmol/L (136-145)
[2022-10-31 05:15] LABS: Calcium 8.1 mg/dL (8.7-10.4)
[2022-10-31 05:17] LABS: Basophils # (auto) 0 10 ^3/uL (0-0.2); Basophils % (auto) 0.5 % (0.0-2.0); Eosinophils # (auto) 0.1 10 ^3/uL (0-0.8); Eosinophils % (auto) 0.8 % (0.0-7.0); Hematocrit 22.5 % (41.0-53.0); Hemoglobin 7.4 g/dL (13.5-17.5); Lymphocytes % (auto) 13.4 % (10.0-50.0); Mean Corpuscular Hemoglobin 32.2 pg (28.0-32.0); Mean Corpuscular Hgb Conc. 32.9 g/dL (32.0-36.0); Mean Corpuscular Volume 97.7 fL (80.0-100.0); Monocytes # (auto) 0.4 10 ^3/uL (0-1.3); Monocytes % (auto) 5.8 % (0.0-12.0); Neutrophils # (auto) 5.7 10 ^3/uL (1.6-8.6); Neutrophils % (auto) 79.5 % (37.0-80.0); Nucleated Red Blood Cells % 0.1 %; Red Cell Distribution Width 18.2 % (11.8-14.3); White Blood Cell 7.2 10^3/uL (4.4-10.8)
[2022-10-31 05:19] LABS: BUN/Creatinine Ratio 26.7 (10.0-20.0); Blood Urea Nitrogen 16 mg/dL (9-23); Glucose 126 mg/dL (74-106)
[2022-10-31] MEDS: ACETYLCYSTEINE 10 %(100MG/ML) SOL 4ML IN SCH ×3 (06:42→22:31)
[2022-10-31] MEDS: CYANOCOBALAMIN 500 MCG TAB PO SCH (08:21)
[2022-10-31] MEDS: PANTOPRAZOLE 40 MG/10 ML VIAL INJ IV SCH ×2 (08:21→21:53)
[2022-10-31] MEDS: FOLIC ACID 1 MG TAB PO SCH (08:21)
[2022-10-31] MEDS: PYRIDOXINE HCL 50 MG TAB PO SCH (08:21)
[2022-10-31] MEDS: amLODIPine BESYLATE 5 MG TAB PO SCH (08:22)
[2022-10-31] MEDS: IRON SUCROSE COMPLEX 200 MG in SODIUM CHL 0.9% 100 ML IV SCH (12:34)
[2022-11-01] VITALS (31 sets, daily range): BP systolic 112–166; BP diastolic 48–73; PULSE 60–69; RESP 12–40; TEMP 96.7–98.7; O2SAT 98–100
[2022-11-01] MEDS: FREE WATER GT SCH ×4 (00:10→16:36)
[2022-11-01] MEDS: ALBUTEROL SULF 2.5 MG/0.5ML(0.5%) NEB SOLN NEB SCH ×6 (02:20→22:21)
[2022-11-01] MEDS: IPRATROPIUM BROM 0.5 MG/2.5ML INH SOL NEB SCH ×6 (02:20→22:21)
[2022-11-01 05:56] LABS: Anion Gap 6.2 (5-15); Carbon Dioxide 21.8 mmol/L (20-30); Chloride 109 mmol/L (98-107); Potassium 4.6 mmol/L (3.5-5.1); Sodium 137 mmol/L (136-145)
[2022-11-01 06:01] LABS: Glucose 101 mg/dL (74-106)
[2022-11-01 06:02] LABS: Blood Urea Nitrogen 15 mg/dL (9-23)
[2022-11-01 06:07] LABS: Basophils # (auto) 0 10 ^3/uL (0-0.2); Basophils % (auto) 0.3 % (0.0-2.0); Lymphocytes # (auto) 0.9 10 ^3/uL (0.4-5.4); Monocytes # (auto) 0.7 10 ^3/uL (0-1.3)
[2022-11-01] MEDS: CeftoloZANE-TAZOB 3 GM in D5W 5% 100 ML IV SCH ×3 (06:09→22:23)
[2022-11-01] MEDS: CARBIDOPA W LEVODOPA 25/100mg TABLET PO SCH ×5 (06:09→22:23)
[2022-11-01 06:10] LABS: Eosinophils # (auto) 0.1 10 ^3/uL (0-0.8); Eosinophils % (auto) 0.6 % (0.0-7.0); Hematocrit 24.4 % (41.0-53.0); Lymphocytes % (auto) 8.7 % (10.0-50.0); Mean Corpuscular Hemoglobin 31.8 pg (28.0-32.0); Mean Corpuscular Hgb Conc. 32.7 g/dL (32.0-36.0); Mean Corpuscular Volume 97.2 fL (80.0-100.0); Monocytes % (auto) 6.7 % (0.0-12.0); Neutrophils # (auto) 8.8 10 ^3/uL (1.6-8.6); Neutrophils % (auto) 83.7 % (37.0-80.0); Red Blood Cells 2.51 10^6/uL (4.5-5.90); Red Cell Distribution Width 18.7 % (11.8-14.3); White Blood Cell 10.5 10^3/uL (4.4-10.8)
[2022-11-01] MEDS: ACETYLCYSTEINE 10 %(100MG/ML) SOL 4ML IN SCH ×3 (06:53→18:42)
[2022-11-01] MEDS: PYRIDOXINE HCL 50 MG TAB PO SCH (07:59)
[2022-11-01] MEDS: FOLIC ACID 1 MG TAB PO SCH (07:59)
[2022-11-01] MEDS: PANTOPRAZOLE 40 MG/10 ML VIAL INJ IV SCH ×2 (07:59→22:23)
[2022-11-01] MEDS: CYANOCOBALAMIN 500 MCG TAB PO SCH (08:00)
[2022-11-01] MEDS: amLODIPine BESYLATE 5 MG TAB PO SCH (08:00)
[2022-11-01] MEDS: IRON SUCROSE COMPLEX 200 MG in SODIUM CHL 0.9% 100 ML IV SCH (11:36)
[2022-11-02] VITALS (48 sets, daily range): BP systolic 96–173; BP diastolic 54–69; PULSE 60–69; RESP 14–36; TEMP 96.2–97.6; O2SAT 93–100
[2022-11-02] MEDS: FREE WATER GT SCH ×4 (00:28→15:54)
[2022-11-02] MEDS: IPRATROPIUM BROM 0.5 MG/2.5ML INH SOL NEB SCH ×6 (02:09→22:05)
[2022-11-02] MEDS: ALBUTEROL SULF 2.5 MG/0.5ML(0.5%) NEB SOLN NEB SCH ×6 (02:10→22:05)
[2022-11-02] MEDS: hydrALAZINE HCL 20 MG/ML VL IV PRN (04:06)
[2022-11-02 05:20] LABS: Anion Gap 6.7 (5-15); Carbon Dioxide 20.3 mmol/L (20-30); Chloride 109 mmol/L (98-107); Potassium 4.5 mmol/L (3.5-5.1); Sodium 136 mmol/L (136-145)
[2022-11-02 05:26] LABS: BUN/Creatinine Ratio 25.5 (10.0-20.0); Blood Urea Nitrogen 14 mg/dL (9-23); Glucose 121 mg/dL (74-106)
[2022-11-02 05:50] LABS: Hematocrit 24.4 % (41.0-53.0); Mean Corpuscular Hemoglobin 32.5 pg (28.0-32.0); Mean Corpuscular Hgb Conc. 32.9 g/dL (32.0-36.0); Mean Corpuscular Volume 98.7 fL (80.0-100.0); Red Blood Cells 2.47 10^6/uL (4.5-5.90); Red Cell Distribution Width 18.6 % (11.8-14.3); White Blood Cell 9.2 10^3/uL (4.4-10.8)
[2022-11-02 06:00] LABS: Basophils % (manual) 0 (0.0-2.0); Blast Cells 0; Metamyelocytes % 0; Myelocytes % 0; Promyelocytes % 0; Reactive Lymphocytes 0
[2022-11-02] MEDS: ACETYLCYSTEINE 10 %(100MG/ML) SOL 4ML IN SCH ×3 (06:34→22:05)
[2022-11-02] MEDS: CARBIDOPA W LEVODOPA 25/100mg TABLET PO SCH ×5 (07:13→22:02)
[2022-11-02] MEDS: CeftoloZANE-TAZOB 3 GM in D5W 5% 100 ML IV SCH ×3 (07:14→22:02)
[2022-11-02] MEDS: FOLIC ACID 1 MG TAB PO SCH (08:31)
[2022-11-02] MEDS: PYRIDOXINE HCL 50 MG TAB PO SCH (08:31)
[2022-11-02] MEDS: PANTOPRAZOLE 40 MG/10 ML VIAL INJ IV SCH ×2 (08:31→22:02)
[2022-11-02] MEDS: amLODIPine BESYLATE 5 MG TAB PO SCH (08:32)
[2022-11-02] MEDS: CYANOCOBALAMIN 500 MCG TAB PO SCH (08:40)
[2022-11-02 10:28] LABS: Band Neutrophils % (manual) 3; Eosinophils % (manual) 1 (0-7); Lymphocytes % (manual) 10 (10.0-50.0); Monocytes % (manual) 1 (0-12)
[2022-11-02 10:29] LABS: Platelet Estimate Adequate
[2022-11-02] MEDS: IRON SUCROSE COMPLEX 200 MG in SODIUM CHL 0.9% 100 ML IV SCH (13:22)
[2022-11-03] VITALS (37 sets, daily range): BP systolic 118–158; BP diastolic 42–65; PULSE 60–70; RESP 15–35; TEMP 97.4–98.8; O2SAT 95–100
[2022-11-03] MEDS: FREE WATER GT SCH ×4 (00:42→18:49)
[2022-11-03] MEDS: ALBUTEROL SULF 2.5 MG/0.5ML(0.5%) NEB SOLN NEB SCH ×6 (02:07→22:17)
[2022-11-03] MEDS: IPRATROPIUM BROM 0.5 MG/2.5ML INH SOL NEB SCH ×6 (02:07→22:17)
[2022-11-03 05:22] LABS: Chloride 109 mmol/L (98-107); Potassium 4.5 mmol/L (3.5-5.1); Sodium 136 mmol/L (136-145)
[2022-11-03 05:23] LABS: Anion Gap 6.2 (5-15); Calcium 7.9 mg/dL (8.7-10.4); Carbon Dioxide 20.8 mmol/L (20-30)
[2022-11-03 05:28] LABS: BUN/Creatinine Ratio 22.6 (10.0-20.0); Blood Urea Nitrogen 12 mg/dL (9-23); Glucose 103 mg/dL (74-106)
[2022-11-03 05:49] LABS: Basophils # (auto) 0 10 ^3/uL (0-0.2); Basophils % (auto) 0.4 % (0.0-2.0); Eosinophils # (auto) 0 10 ^3/uL (0-0.8); Eosinophils % (auto) 0.5 % (0.0-7.0); Hematocrit 23.6 % (41.0-53.0); Hemoglobin 7.8 g/dL (13.5-17.5); Lymphocytes # (auto) 1.1 10 ^3/uL (0.4-5.4); Lymphocytes % (auto) 11.2 % (10.0-50.0); Mean Corpuscular Volume 96.9 fL (80.0-100.0); Monocytes # (auto) 0.6 10 ^3/uL (0-1.3); Monocytes % (auto) 5.8 % (0.0-12.0); Neutrophils # (auto) 7.9 10 ^3/uL (1.6-8.6); Neutrophils % (auto) 82.1 % (37.0-80.0); Nucleated Red Blood Cells % 0.1 %; Red Blood Cells 2.44 10^6/uL (4.5-5.90); Red Cell Distribution Width 18.7 % (11.8-14.3); White Blood Cell 9.6 10^3/uL (4.4-10.8)
[2022-11-03] MEDS: CeftoloZANE-TAZOB 3 GM in D5W 5% 100 ML IV SCH ×3 (05:52→21:57)
[2022-11-03] MEDS: CARBIDOPA W LEVODOPA 25/100mg TABLET PO SCH ×5 (05:52→21:56)
[2022-11-03] MEDS: ACETYLCYSTEINE 10 %(100MG/ML) SOL 4ML IN SCH ×3 (06:40→18:16)
[2022-11-03] MEDS: PANTOPRAZOLE 40 MG/10 ML VIAL INJ IV SCH ×2 (10:37→21:56)
[2022-11-03] MEDS: PYRIDOXINE HCL 50 MG TAB PO SCH (10:37)
[2022-11-03] MEDS: FOLIC ACID 1 MG TAB PO SCH (10:39)
[2022-11-03] MEDS: amLODIPine BESYLATE 5 MG TAB PO SCH (10:39)
[2022-11-03] MEDS: CYANOCOBALAMIN 500 MCG TAB PO SCH (10:39)
[2022-11-03] MEDS: IRON SUCROSE COMPLEX 200 MG in SODIUM CHL 0.9% 100 ML IV SCH (12:34)
[2022-11-04] VITALS (25 sets, daily range): BP systolic 129–147; BP diastolic 51–64; PULSE 60–69; RESP 13–44; TEMP 97.4–98.4; O2SAT 90–100
[2022-11-04] MEDS: FREE WATER GT SCH ×4 (00:31→17:45)
[2022-11-04] MEDS: ALBUTEROL SULF 2.5 MG/0.5ML(0.5%) NEB SOLN NEB SCH ×6 (02:06→22:30)
[2022-11-04] MEDS: IPRATROPIUM BROM 0.5 MG/2.5ML INH SOL NEB SCH ×6 (02:06→22:30)
[2022-11-04 05:42] LABS: Basophils # (auto) 0 10 ^3/uL (0-0.2); Basophils % (auto) 0.5 % (0.0-2.0); Eosinophils # (auto) 0.1 10 ^3/uL (0-0.8); Eosinophils % (auto) 0.7 % (0.0-7.0); Hematocrit 23.7 % (41.0-53.0); Hemoglobin 7.8 g/dL (13.5-17.5); Lymphocytes # (auto) 1.2 10 ^3/uL (0.4-5.4); Lymphocytes % (auto) 11.9 % (10.0-50.0); Mean Corpuscular Hemoglobin 31.2 pg (28.0-32.0); Mean Corpuscular Hgb Conc. 32.9 g/dL (32.0-36.0); Mean Corpuscular Volume 94.9 fL (80.0-100.0); Monocytes # (auto) 0.7 10 ^3/uL (0-1.3); Monocytes % (auto) 6.7 % (0.0-12.0); Neutrophils % (auto) 80.2 % (37.0-80.0); Nucleated Red Blood Cells % 0.1 %; Red Cell Distribution Width 19.1 % (11.8-14.3)
[2022-11-04 05:53] LABS: Chloride 109 mmol/L (98-107); Potassium 4.3 mmol/L (3.5-5.1); Sodium 136 mmol/L (136-145)
[2022-11-04 05:54] LABS: Anion Gap 5.8 (5-15); Carbon Dioxide 21.2 mmol/L (20-30)
[2022-11-04 05:55] LABS: Calcium 8.1 mg/dL (8.5-10.1)
[2022-11-04 05:59] LABS: BUN/Creatinine Ratio 24.6 (10.0-20.0); Blood Urea Nitrogen 16 mg/dL (9-23); Glucose 106 mg/dL (74-106)
[2022-11-04] MEDS: CeftoloZANE-TAZOB 3 GM in D5W 5% 100 ML IV SCH (06:01)
[2022-11-04] MEDS: CARBIDOPA W LEVODOPA 25/100mg TABLET PO SCH ×5 (06:01→22:15)
[2022-11-04] MEDS: ACETYLCYSTEINE 10 %(100MG/ML) SOL 4ML IN SCH ×3 (06:13→22:30)
[2022-11-04] MEDS: amLODIPine BESYLATE 5 MG TAB PO SCH (10:06)
[2022-11-04] MEDS: SODIUM FERR GLUC 62.5MG/5ML 125 MG in SODIUM CHL 0.9% 100 ML IV SCH (13:04)
[2022-11-04] MEDS: MUPIROCIN 2% OINT 15gm or 22gm FOR MRSA NARES EACHNOSTRI SCH (22:23)
[2022-11-05] VITALS (22 sets, daily range): BP systolic 137–163; BP diastolic 51–63; PULSE 6–69; RESP 12–35; TEMP 98–98.7; O2SAT 95–100
[2022-11-05] MEDS: IPRATROPIUM BROM 0.5 MG/2.5ML INH SOL NEB SCH ×5 (02:04→18:22)
[2022-11-05] MEDS: ALBUTEROL SULF 2.5 MG/0.5ML(0.5%) NEB SOLN NEB SCH ×5 (02:04→18:22)
[2022-11-05] MEDS: FREE WATER GT SCH ×4 (06:00→17:42)
[2022-11-05] MEDS: CARBIDOPA W LEVODOPA 25/100mg TABLET PO SCH ×3 (06:00→14:00)
[2022-11-05] MEDS: ACETYLCYSTEINE 10 %(100MG/ML) SOL 4ML IN SCH ×3 (06:00→18:22)
[2022-11-05 06:38] LABS: Basophils # (auto) 0 10 ^3/uL (0-0.2); Eosinophils # (auto) 0 10 ^3/uL (0-0.8); Hemoglobin 7.9 g/dL (13.5-17.5); Neutrophils # (auto) 9.2 10 ^3/uL (1.6-8.6)
[2022-11-05 06:40] LABS: Basophils % (auto) 0.4 % (0.0-2.0); Eosinophils % (auto) 0.4 % (0.0-7.0); Lymphocytes % (auto) 9.1 % (10.0-50.0); Mean Corpuscular Hemoglobin 31.9 pg (28.0-32.0); Mean Corpuscular Hgb Conc. 33.1 g/dL (32.0-36.0); Mean Corpuscular Volume 96.3 fL (80.0-100.0); Monocytes # (auto) 0.6 10 ^3/uL (0-1.3); Monocytes % (auto) 5.8 % (0.0-12.0); Neutrophils % (auto) 84.3 % (37.0-80.0); Red Blood Cells 2.49 10^6/uL (4.5-5.90); Red Cell Distribution Width 19.3 % (11.8-14.3); White Blood Cell 10.9 10^3/uL (4.4-10.8)
[2022-11-05 07:01] LABS: Calcium 8.2 mg/dL (8.5-10.1); Chloride 109 mmol/L (98-107); Potassium 4.3 mmol/L (3.5-5.1); Sodium 136 mmol/L (136-145)
[2022-11-05 07:02] LABS: Anion Gap 5.6 (5-15); Carbon Dioxide 21.4 mmol/L (20-30)
[2022-11-05 07:07] LABS: Glucose 112 mg/dL (74-106)
[2022-11-05 07:08] LABS: BUN/Creatinine Ratio 19.7 (10.0-20.0); Blood Urea Nitrogen 13 mg/dL (9-23)
[2022-11-05] MEDS: MUPIROCIN 2% OINT 15gm or 22gm FOR MRSA NARES EACHNOSTRI SCH (10:00)
[2022-11-05] MEDS: amLODIPine BESYLATE 5 MG TAB PO SCH (10:00)
[2022-11-05] MEDS: SODIUM FERR GLUC 62.5MG/5ML 125 MG in SODIUM CHL 0.9% 100 ML IV SCH (12:00)
== END 2022-11-05 19:55 | DRG 4 ==
LOC: EDBD 13:37 → ER 13:37 → EDUNIT# 13:37 → TELE 18:34 → ICU WEST 08-29 21:32 → TELE-WESTW 08-29 21:32 → ICU WEST 08-31 11:36 → DOU IN ICU 10-16 12:07 → ICU CENTRL 10-25 00:07 → ICU WEST 10-26 11:55 → DOU IN ICU 10-28 23:43
PROVIDERS: ADMIT Internal Medicine Pulmonary Disease; ATTEND Internal Medicine Pulmonary Disease
PROC: 5A1955Z Respiratory Ventilation, Greater than 96 Consecutive Hours (ICD-10-PCS; 2022-09-02)
PROC: 0BH17EZ Insertion of Endotracheal Airway into Trachea, Via Natural or Artificial Opening (ICD-10-PCS; 2022-09-02)
PROC: 02HV33Z Insertion of Infusion Device into Superior Vena Cava, Percutaneous Approach (ICD-10-PCS; 2022-09-04)
PROC: B548ZZA Ultrasonography of Superior Vena Cava, Guidance (ICD-10-PCS; 2022-09-04)
PROC: 5A1D70Z Performance of Urinary Filtration, Intermittent, Less than 6 Hours Per Day (ICD-10-PCS; 2022-09-05)
PROC: 5A1D70Z Performance of Urinary Filtration, Intermittent, Less than 6 Hours Per Day (ICD-10-PCS; 2022-09-05)
PROC: 5A1D70Z Performance of Urinary Filtration, Intermittent, Less than 6 Hours Per Day (ICD-10-PCS; 2022-09-06)
PROC: 5A1D70Z Performance of Urinary Filtration, Intermittent, Less than 6 Hours Per Day (ICD-10-PCS; 2022-09-09)
PROC: 5A1D70Z Performance of Urinary Filtration, Intermittent, Less than 6 Hours Per Day (ICD-10-PCS; 2022-09-11)
PROC: 5A1D70Z Performance of Urinary Filtration, Intermittent, Less than 6 Hours Per Day (ICD-10-PCS; 2022-09-14)
PROC: 0BH17EZ Insertion of Endotracheal Airway into Trachea, Via Natural or Artificial Opening (ICD-10-PCS; 2022-09-17)
PROC: 5A1955Z Respiratory Ventilation, Greater than 96 Consecutive Hours (ICD-10-PCS; 2022-09-17)
PROC: 5A1D70Z Performance of Urinary Filtration, Intermittent, Less than 6 Hours Per Day (ICD-10-PCS; 2022-09-21)
PROC: 5A1D70Z Performance of Urinary Filtration, Intermittent, Less than 6 Hours Per Day (ICD-10-PCS; 2022-09-24)
PROC: 0B110F4 Bypass Trachea to Cutaneous with Tracheostomy Device, Open Approach (ICD-10-PCS; 2022-09-25)
PROC: 5A1D70Z Performance of Urinary Filtration, Intermittent, Less than 6 Hours Per Day (ICD-10-PCS; 2022-09-26)
PROC: 5A1D70Z Performance of Urinary Filtration, Intermittent, Less than 6 Hours Per Day (ICD-10-PCS; 2022-09-27)
PROC: 5A1D70Z Performance of Urinary Filtration, Intermittent, Less than 6 Hours Per Day (ICD-10-PCS; 2022-09-28)
PROC: 0DH63UZ Insertion of Feeding Device into Stomach, Percutaneous Approach (ICD-10-PCS; 2022-10-02)
PROC: 0W993ZZ Drainage of Right Pleural Cavity, Percutaneous Approach (ICD-10-PCS; 2022-10-02)
PROC: 0DJ08ZZ Inspection of Upper Intestinal Tract, Via Natural or Artificial Opening Endoscopic (ICD-10-PCS; principal; 2022-10-02 15:45)
PROC: 30243N1 Transfusion of Nonautologous Red Blood Cells into Central Vein, Percutaneous Approach (ICD-10-PCS; 2022-10-19)
PROC: 0B9F8ZX Drainage of Right Lower Lung Lobe, Via Natural or Artificial Opening Endoscopic, Diagnostic (ICD-10-PCS; 2022-10-24)
DX: A41.9 Sepsis, unspecified organism (principal); J15.212 Pneumonia due to Methicillin resistant Staphylococcus aureus; G93.41 Metabolic encephalopathy; I21.A1 Myocardial infarction type 2; J96.01 Acute respiratory failure with hypoxia; R65.21 Severe sepsis with septic shock; N17.0 Acute kidney failure with tubular necrosis; N18.6 End stage renal disease; I50.33 Acute on chronic diastolic (congestive) heart failure; J44.0 Chronic obstructive pulmonary disease with (acute) lower respiratory infection; E87.0 Hyperosmolality and hypernatremia; I48.92 Unspecified atrial flutter; E87.20 Acidosis, unspecified; D62 Acute posthemorrhagic anemia; D68.9 Coagulation defect, unspecified; I82.C11 Acute embolism and thrombosis of right internal jugular vein; I82.611 Acute embolism and thrombosis of superficial veins of right upper extremity; G93.1 Anoxic brain damage, not elsewhere classified; E46 Unspecified protein-calorie malnutrition; E87.1 Hypo-osmolality and hyponatremia; I82.621 Acute embolism and thrombosis of deep veins of right upper extremity; I13.2 Hypertensive heart and chronic kidney disease with heart failure and with stage 5 chronic kidney disease, or end stage renal disease; N39.0 Urinary tract infection, site not specified; Z99.11 Dependence on respirator [ventilator] status; G20 Parkinson's disease; E11.22 Type 2 diabetes mellitus with diabetic chronic kidney disease; M47.812 Spondylosis without myelopathy or radiculopathy, cervical region; D69.6 Thrombocytopenia, unspecified; K74.60 Unspecified cirrhosis of liver; F02.80 Dementia in other diseases classified elsewhere, unspecified severity, without behavioral disturbance, psychotic disturbance, mood disturbance, and anxiety; Y84.8 Other medical procedures as the cause of abnormal reaction of the patient, or of later complication, without mention of misadventure at the time of the procedure; Z95.0 Presence of cardiac pacemaker; Z99.2 Dependence on renal dialysis
CPT/HCPCS: 31624; 31720; 36415; 36569; 36600; 43255; 70450; 71045; 71250; 72125; 72192; 73060; 74018; 74176; 76604; 76775; 76942; 80048; 80053; 80061; 80069; 80074; 80202; 81001; 82140; 82270; 82570; 82607; 82728; 82746; 82805; 82962; 83036; 83090; 83540; 83550; 83605; 83615; 83735; 83880; 83986; 84100; 84132; 84156; 84300; 84443; 84484; 84540; 84550; 85007; 85025; 85027; 85045; 85379; 85384; 85610; 85730; 86850; 86900; 86901; 86920; 87040; 87070; 87077; 87081; 87086; 87088; 87186; 87205; 89051; 90935; 93005; 93306; 93925; 93970; 93971; 94002; 94003; 94640; 94727; 95819; 96361; 96365; 96367; 97110; 97116; 97163; 97530; A4605; C9113; G0378; J0330; J0690; J0692; J0696; J1100; J1642; J1756; J1815; J2001; J2185; J2250; J2405; J3480; J7060; P9047